=== PATIENT | male | born 1945 | race Caucasian/White ===

== ENCOUNTER 2017-05-20 09:35 | Emergency (ER) | payer MEDICARE, OTHER ==
[2017-05-20 09:46] VITALS: BP 153/85
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
== END 2017-05-20 11:18 | disposition home or self-care (01) ==
LOC: ER 09:35
DX: S49.92XA Unspecified injury of left shoulder and upper arm, initial encounter (principal); W01.0XXA Fall on same level from slipping, tripping and stumbling without subsequent striking against object, initial encounter; Y93.89 Activity, other specified; Y92.007 Garden or yard of unspecified non-institutional (private) residence as the place of occurrence of the external cause

== ENCOUNTER 2017-05-22 06:25 | Observation (INO) | payer MEDICARE, OTHER ==
[2017-05-22] MEDS ORDERED: MORPHINE SULFATE 10 MG/ML SYRG IV ONE ×2 (07:07→09:05)
[2017-05-22] MEDS ORDERED: ONDANSETRON HCL/PF 2 MG/ML VIAL IV ONE (07:08)
[2017-05-22] MEDS ORDERED: MORPHINE SULFATE 10 MG/ML SYRG ONE (07:17)
[2017-05-22] MEDS ORDERED: ONDANSETRON HCL/PF 2 MG/ML VIAL ONE (07:17)
[2017-05-22 07:44] LABS: Hematocrit 37.3 % (42.0-52.0); Hemoglobin 12.5 gm/dL (13.5-18.0); Mean Cell Volume 90.5 fl (78-100); Mean Corpuscular Hemoglobin 30.3 pg (27-31); Mean Corpuscular Hgb Conc 33.5 g/dl (32-36); Mean Platelet Volume 10.4 fl (6.0-9.5); Neutrophil # 5.6 K/mm3 (1.3-6.0); Neutrophil % 51.7 % (42-75.0); Platelet Count 357 K/mm3 (150-450); Red Blood Count 4.12 M/mm3 (4.7-6.0); Red Cell Distribution Width 15.2 % (11.5-14.0); White Blood Count 10.8 K/mm3 (4.0-10.5)
[2017-05-22 07:47] LABS: Total Cells Counted 100
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
[2017-05-22 07:54] LABS: Prothrombin Time (Patient) 49.5 Seconds (9.4-11.4)
[2017-05-22 07:59] LABS: Albumin * 3.7 gm/dl (3.4-5.0); BUN/Creatinine Ratio 27.7 (9.0-21.6); Bilirubin, Total 0.8 mg/dL (0.0-1.1); Ca. Corrected For Albumin 8.4 mg/dL (8.4-10.2); Calcium * 8.5 mg/dL (7.9-10.9); Carbon Dioxide 29.4 mmol/L (24-32.6); Potassium 3.4 mmol/L (3.4-4.6); Total Protein 6.8 gm/dL (6.2-8.2)
[2017-05-22 08:11] LABS: INR 4.76 INR (0.90-1.10)
[2017-05-22 08:12] LABS: Atypical (Reactive) Lymph 2 % (0-2); Band 1 % (0-2.0); Eosinophil 2 % (0-3); Lymphocyte 23 % (20-51); Monocyte 16 % (0-9); Neutrophil 56 % (42-75); Platelet Estimate Normal (NORMAL)
[2017-05-22 08:39] LABS: Urine Bilirubin Negative (NEGATIVE); Urine Blood Negative /ul (NEGATIVE); Urine Ketone Negative (NEGATIVE); Urine Nitrite Negative (NEGATIVE); Urine Protein Negative (NEGATIVE); Urine Urobilinogen Normal (NORMAL); Urine pH 6.5 pH (5.0-7.0)
[2017-05-22 08:50] LABS: Urine Appearance Clear; Urine Bacteria None Seen; Urine Color Yellow; Urine RBC TRACE /hpf (0-5); Urine WBC TRACE /hpf (0-5)
--- NOTE | 2017-05-22 11:27 | HP ---
Chief Complaint - Chief Complaint Date of Service: 05/22/17 Time of Service: 11:23 Chief Complaint: fall/left foot/shoulder pain History of Present Illness: Darren Arvizu, is a 71-year-old white male, with previous medical history of aortic stenosis status post" aortic valve replacement, coronary artery disease, hypertension and Hodgkin's disease, low back pain, who was admitted on 2016 because of a fall with left foot pain and left shoulder pain. A few days prior to admission patient was going down the stairs and fell down and hit his left shoulder again the wall. He was seen in our emergency room a few days later when it started hurting. X-ray at that time showed no evidence of acute osseous findings and he was sent home on a sleeping. Today early in the morning he went to the bathroom and when he stood up he had mid back spasm that buckled his left lower extremity and he fell down hitting his left foot and his left shoulder. He denied any chest pain shortness of breath, CP, palpitations , nausea, vomiting, diaphoresis uncontrolled movements, blanketing of vision before falling down. He then went to our emergency room where a CT scan of his head showed no acute hemorrhage. A CT scan of his cervical spine showed no acute osseous findings . his shoulder xray showed no acute osseous findings. He had a minimally displaced S5 fracture and possible fourth metatarsal fracture , base. He was then admitted for further evaluation and treatment and pain control. - Patient's Past Medical History Patient History - Medical: Cataracts, Hypothyroidism, Other Patient History - Cardiac/Respiratory: Asthma, CHF, COPD, Hypertension, Hyperlipidemia, Pericarditis, Pneumonia, CPAP/BiPAP Home Use, Sleep Apnea, Other Patient History - Cancer: Non Hodgkins Lymphoma, Chemotherapy history, Radiation Therapy, Other Patient History - Surgical Procedures: Cataracts, Pacemaker, T & A, Other Patient History - Other: None - Family History Father Family History - Medical: , No pertinent hx Family History - Cardiac/Respiratory: CVA/Stroke, Myocardial Infarction Family History - Cancer: No pertinent family hx Mother Family History - Medical: Diabetes Type 2 Family History - Cardiac/Respiratory: No pertinent hx Family History - Cancer: Melanoma - Social History Living Situations: spouse Abuse History: No History of abuse Psych History: No pertinent hx Smoking Status: Former smoker Have you smoked in the past 12 months: No Alcohol Use: rarely Drug Use: none - Immunizations Immunizations Up to Date: Yes Hx Pneumococcal Vaccination: Yes History of Influenza Vaccine: Yes Review Of Systems (GEN) - Review of Systems Generalized/Overall Review: Absent: Weakness, Chills, Fever EENTM: Present: No Symptoms Reported Respiratory: Absent: Cough, Shortness of Breath Cardiac: Absent: Chest Pain, Edema, Palpitations Abdominal: Absent: Nausea, Vomiting Genitourinary: Absent: Urgency, Frequency Musculoskeletal: Present: Joint Pain, Back Pain Neurological: Present: No Symptoms Reported Allergies/Adverse Reactions: Allergies Allergy/AdvReac Type Severity Reaction Status Date / Time cat dander Allergy Other Verified 05/22/17 10:06 mold Allergy Other Verified 05/22/17 10:06 pollen extracts Allergy Other Verified 05/22/17 10:06 Home Medications: HOME MEDICATIONS Furosemide [Lasix] 80 mg PO DAILY 08/27/12 [Last Taken Unknown] Levothyroxine Sodium [Synthroid] 50 mcg PO DAILY 08/27/12 [Last Taken Unknown] Losartan Potassium [Cozaar] 100 mg PO HS 08/27/12 [Last Taken Unknown] Carvedilol [Coreg] 25 mg PO BID 06/12/13 [Last Taken Unknown] Arformoterol Tartrate [Brovana] 15 mcg IH BID 11/21/13 [Last Taken Unknown] Budesonide [Pulmicort] 0.5 mg IH BID 02/04/14 [Last Taken Unknown] Nitroglycerin 0.4 mg SL [id number] PRN 02/09/14 [Last Taken Unknown] Potassium Chloride 40 meq PO DAILY 02/09/14 [Last Taken Unknown] Fexofenadine HCl [Lucrecia] 180 mg PO HS 06/30/14 [Last Taken Unknown] Levalbuterol Tartrate [Xopenex Hfa] 2 puff IH Q6H PRN 07/22/14 [Last Taken 07/20 08:30] Warfarin Sodium [Coumadin] 5 mg PO MOTH 07/27/14 [Last Taken Unknown] Albuterol Sulfate 2.5 mg IH DAILY 09/23/14 [Last Taken Unknown] Atorvastatin Calcium [Lipitor] 40 mg PO HS 09/23/14 [Last Taken Unknown] Fluorometholone [FML Ophthalmic Suspension] 1 drop LEFTEYE DAILY 09/23/14 [Last Taken Unknown] Fluticasone Propionate [Flonase] 2 spray NS BID 09/23/14 [Last Taken Unknown] Metolazone [Zaroxolyn] 5 mg PO TU 04/27/16 [Last Taken Unknown] Acetaminophen [Tylenol] 650 mg PO Q6H PRN 05/27/16 [Last Taken Unknown] Ipratropium [place] [Ipratropium [place] (Atrovent)] 0.5 mg IH TID 05/27/16 [ Last Taken Unknown] Warfarin Sodium [Coumadin] 2.5 mg PO SUTUWEFRSA 05/27/16 [Last Taken Unknown] prednisoLONE ACETATE [Pred Forte 1%] 1 drop RIGHTEYE QID 05/27/16 [Last Taken Unknown] Sod Chlor,Bicarb/Squeez Bottle [[employer] Sinus Rinse Comp Kit] 1 each NS BID [Last Taken Unknown] Exam - Exam Vital Signs: Vital Signs - Last Taken Temp 37.1 C 05/22/17 10:17 Pulse 78 05/22/17 10:17 Resp 12 05/22/17 10:17 BP 180/64 05/22/17 10:17 Pulse Ox 93 05/22/17 10:17 Constitutional: Present: Alert, Oriented x3, Cooperative ENT Exam: Present: hearing grossly normal Eye Exam: bilateral eye: normal inspection, PERRL, EOMI Neck: Present: supple Breasts: Present: Exam deferred Respiratory: Present: normal breath sounds, No rales, No wheezing Cardiovascular/Chest: Present: regular rate, rhythm, no JVD, no murmur, other - positive S2 click. Abdomen: Present: Normal bowel sounds, soft, nontender, nondistended Extremity: Present: no calf tenderness, other - left foot swelling, able to move toes, ice wraps Diagnostic Studies: Laboratory Results WBC 10.8 K/mm3 (4.0-10.5) H 05/22/17 07:30 RBC 4.12 M/mm3 (4.7-6.0) L 05/22/17 07:30 Hgb 12.5 gm/dL (13.5-18.0) L 05/22/17 07:30 Hct 37.3 % (42.0-52.0) L 05/22/17 07:30 MCV 90.5 fl (78-100) 05/22/17 07:30 MCH 30.3 pg (27-31) 05/22/17 07:30 MCHC 33.5 g/dl (32-36) 05/22/17 07:30 RDW 15.2 % (11.5-14.0) H 05/22/17 07:30 Plt Count 357 K/mm3 (150-450) 05/22/17 07:30 MPV 10.4 fl (6.0-9.5) H 05/22/17 07:30 Immature Gran % (Auto) 0.40 % (0.001-0.429) 05/22/17 07:30 Immature Gran # (Auto) 0.04 K/mm3 (0.000-0.0310) H 05/22/17 07:30 Neutrophils % 51.7 % (42-75.0) 05/22/17 07:30 Neutrophils % (Manual) 56 % (42-75) 05/22/17 07:30 Band Neuts % (Manual) 1 % (0-2.0) 05/22/17 07:30 Lymphocytes % 29.9 % (20-51) 05/22/17 07:30 Lymphocytes % (Manual) 23 % (20-51) 05/22/17 07:30 Monocytes % 14.6 % (0.0-9) H 05/22/17 07:30 Monocytes % (Manual) 16 % (0-9) H 05/22/17 07:30 Eosinophils % 2.2 % (0.0-3.0) 05/22/17 07:30 Eosinophils % (Manual) 2 % (0-3) 05/22/17 07:30 Basophils % 1.2 % (0.0-1.0) H 05/22/17 07:30 Nucleated RBC % 0.0 k/mm3 (0-1) 05/22/17 07:30 Neutrophils # 5.6 K/mm3 (1.3-6.0) 05/22/17 07:30 Neutrophils # (Manual) 6.0 K/mm3 (1.3-6.0) 05/22/17 07:30 Lymphocytes # 3.2 k/mm3 (1.5-3.5) 05/22/17 07:30 Lymphocytes # (Manual) 2.5 k/mm3 (1.5-3.5) 05/22/17 07:30 Monocytes # 1.6 k/mm3 (0.0-1.0) H 05/22/17 07:30 Monocytes # (Manual) 1.7 k/mm3 (0.0-1.0) H 05/22/17 07:30 Eosinophils # 0.2 k/mm3 (0.0-0.7) 05/22/17 07:30 Eosinophils # (Manual) 0.2 k/mm3 (0.0-0.7) 05/22/17 07:30 Absolute Basophils 0.1 k/mm3 (0.0-0.1) 05/22/17 07:30 Atypic/Reactive Lymphs 2 % (0-2) 05/22/17 07:30 Platelet Estimate Normal (NORMAL) 05/22/17 07:30 Ivanna Cells 2+ 05/22/17 07:30 PT 49.5 Seconds (9.4-11.4) H 05/22/17 07:30 INR (Anticoag Therapy) 4.76 INR (0.90-1.10) H* 05/22/17 07:30 Sodium 144 mmol/L (132-142) H 05/22/17 07:30 Plasma Sodium 144 mmol/L (130-142) H 05/22/17 07:30 Potassium 3.4 mmol/L (3.4-4.6) 05/22/17 07:30 Chloride 105 mmol/L (97-106) 05/22/17 07:30 Carbon Dioxide 29.4 mmol/L (24-32.6) 05/22/17 07:30 Anion Gap 13.0 mmol/L (6.8-13.8) 05/22/17 07:30 BUN 46 mg/dL (6-23) H 05/22/17 07:30 Creatinine 1.66 mg/dL (0.4-1.4) H 05/22/17 07:30 Est GFR (Non-Af Amer) 44 mL/min (60-130) L 05/22/17 07:30 BUN/Creatinine Ratio 27.7 (9.0-21.6) H 05/22/17 07:30 Random Glucose 113 mg/dL (70-110) H 05/22/17 07:30 Calcium 8.5 mg/dL (7.9-10.9) 05/22/17 07:30 Calcium Adj for Albumin 8.4 mg/dL (8.4-10.2) 05/22/17 07:30 Total Bilirubin 0.8 mg/dL (0.0-1.1) 05/22/17 07:30 AST 23 U/L (0-48) 05/22/17 07:30 ALT 32 U/L (19-67) 05/22/17 07:30 Alkaline Phosphatase 59 U/L (50-170) 05/22/17 07:30 Total Protein 6.8 gm/dL (6.2-8.2) 05/22/17 07:30 Albumin 3.7 gm/dl (3.4-5.0) 05/22/17 07:30 Urine Color Yellow 05/22/17 08:28 Urine Appearance Clear 05/22/17 08:28 Urine pH 6.5 pH (5.0-7.0) 05/22/17 08:28 Ur Specific [place] 1.010 SP.GR. (1.005-1.030) 05/22/17 08:28 Urine Protein Negative mg/dL (NEGATIVE) 05/22/17 08:28 Urine Glucose (UA) Negative mg/dL (NEGATIVE) 05/22/17 08:28 Urine Ketones Negative mg/dL (NEGATIVE) 05/22/17 08:28 Urine Blood Negative /ul (NEGATIVE) 05/22/17 08:28 Urine Nitrate Negative (NEGATIVE) 05/22/17 08:28 Urine Bilirubin Negative mg/dl (NEGATIVE) 05/22/17 08:28 Urine Urobilinogen Normal EU/dl (NORMAL) 05/22/17 08:28 Ur Leukocyte Esterase Negative /ul (NEGATIVE) 05/22/17 08:28 Urine RBC Trace /hpf (0-5) 05/22/17 08:28 Urine WBC Trace /hpf (0-5) 05/22/17 08:28 Ur Epithelial Cells None seen /hpf (0-5) 05/22/17 08:28 Urine Bacteria None seen (NONE) 05/22/17 08:28 Urine Culture Comments No culture indicated 05/22/17 08:28 Assessment/Plan - Assessment/Plan (1) Intractable pain Problem: Acute (2) Lumbar back pain with radiculopathy affecting left lower extremity Problem: Acute (3) Traumatic arthropathy, left ankle and foot Assessment: possible 4th MT Fracture, 4th on Xray. orhto on consult. Problem: Acute (4) Sacral fracture, closed Assessment: S5 on CTS. weight bear to tolerance. Problem: Acute Qualifiers: Encounter type: initial encounter Fracture alignment: minimally displaced (5) Hypertension Problem: Acute (6) Aortic stenosis Problem: Acute (7) Elevated INR Assessment: supratherapeutic. will hold coumadin tonight Problem: Acute (8) Shoulder injury Assessment: contusion. Problem: Acute
[2017-05-22] MEDS ORDERED: NON-FORMULARY 1 DOSE DOSE (Levalbuterol Tartrate [Xopenex Hfa] 2 PUFF) IH PRN (13:09)
[2017-05-22] MEDS ORDERED: NITROGLYCERIN 0.4 MG/TAB BTL SL PRN (13:09)
[2017-05-22] MEDS ORDERED: ACETAMINOPHEN 325 MG TABLET PO PRN (13:09)
[2017-05-22] MEDS ORDERED: LEVALBUTEROL HCL 0.63 MG/3 ML AMPUL IH PRN (13:38)
--- NOTE | 2017-05-22 13:44 | CONS ---
[facility] - General Date of Service: 05/22/17 Narrative: Mr. Arvizu is a 71-year-old gentleman known to the orthopedic service for previous hematomas and related complications. He states earlier this week he did fall and resulting in a shoulder injury which she states is getting better however he recently injured his sacrum and was standing up when he felt his leg give and he fell to the ground resulting in increased left foot pain and swelling. He is brought to emergency department had x-rays obtained which showed no acute head or neck injury that was concerning for foot injury as well as notable swelling. He states he has notable tenderness to the dorsal aspect of his foot. He has pain in the sacrum left shoulder both of which were present prior to his increased left foot pain. He is on chronic Coumadin and is noted to be supratherapeutic when he came to the ER. Denies any numbness or tingling, excessive pain with passive motion, bowel or bladder problems, or discoloration at this point. He does have some noted ecchymosis to his left biceps area Source: patient Exam Limitations: no limitations - History of Present Illness Timing/Duration: 24 hours, 1 week Severity: moderate Modifying Factors - (Worsens): Reports: movement Modifying Factors - (Improves): Reports: immobilization, medication, rest Associated Symptoms: denies symptoms Allergies/Adverse Reactions: Allergies cat dander Allergy (Verified 05/22/17 10:06) Other mold Allergy (Verified 05/22/17 10:06) Other pollen extracts Allergy (Verified 05/22/17 10:06) Other Home Medications: Home Medications Medication Instructions Recorded Last Taken Furosemide [Lasix] 80 mg PO DAILY 08/27/12 Unknown Levothyroxine Sodium [Synthroid] 50 mcg PO DAILY 08/27/12 Unknown Losartan Potassium [Cozaar] 100 mg PO HS 08/27/12 Unknown Carvedilol [Coreg] 25 mg PO BID 06/12/13 Unknown Arformoterol Tartrate [Brovana] 15 mcg IH BID 11/21/13 Unknown Budesonide [Pulmicort] 0.5 mg IH BID 02/04/14 Unknown Nitroglycerin 0.4 mg SL [id number] PRN 02/09/14 Unknown Potassium Chloride 40 meq PO DAILY 02/09/14 Unknown Fexofenadine HCl [Lucrecia] 180 mg PO HS 06/30/14 Unknown Levalbuterol Tartrate [Xopenex Hfa] 2 puff IH Q6H PRN 07/22/14 07/20/14 08:30 Warfarin Sodium [Coumadin] 5 mg PO MOTH 07/27/14 Unknown Albuterol Sulfate 2.5 mg IH DAILY 09/23/14 Unknown Atorvastatin Calcium [Lipitor] 40 mg PO HS 09/23/14 Unknown Fluorometholone [FML Ophthalmic 1 drop LEFTEYE DAILY 09/23/14 Unknown Suspension] Fluticasone Propionate [Flonase] 2 spray NS BID 09/23/14 Unknown Metolazone [Zaroxolyn] 5 mg PO TU 04/27/16 Unknown Acetaminophen [Tylenol] 650 mg PO Q6H PRN 05/27/16 Unknown Ipratropium [place] [Ipratropium 0.5 mg IH TID 05/27/16 Unknown [place] (Atrovent)] Warfarin Sodium [Coumadin] 2.5 mg PO SUTUWEFRSA 05/27/16 Unknown prednisoLONE ACETATE [Pred Forte 1 drop RIGHTEYE QID 05/27/16 Unknown 1%] Sod Chlor,Bicarb/Squeez Bottle 1 each NS BID 05/22/17 Unknown [[employer] Sinus Rinse Comp Kit] - Patient's Past Medical History Patient History - Medical: Cataracts, Hypothyroidism, Other Patient History - Cardiac/Respiratory: Asthma, CHF, COPD, Hypertension, Hyperlipidemia, Pericarditis, Pneumonia, CPAP/BiPAP Home Use, Sleep Apnea, Other Patient History - Cancer: Non Hodgkins Lymphoma, Chemotherapy history, Radiation Therapy, Other Patient History - Surgical Procedures: Cataracts, Pacemaker, T & A, Other Patient History - Other: None - Family History Father Family History - Medical: , No pertinent hx Family History - Cardiac/Respiratory: CVA/Stroke, Myocardial Infarction Family History - Cancer: No pertinent family hx Mother Family History - Medical: Diabetes Type 2 Family History - Cardiac/Respiratory: No pertinent hx Family History - Cancer: Melanoma - Social History Living Situations: spouse Abuse History: No History of abuse Psych History: No pertinent hx Smoking Status: Former smoker Have you smoked in the past 12 months: No Alcohol Use: rarely Drug Use: none - Immunizations Immunizations Up to Date: Yes Hx Pneumococcal Vaccination: Yes History of Influenza Vaccine: Yes Procedures ANESTH INJECT-SPIN CANAL (02/11/03) ANT NASAL PACK FOR EPIST (12/19/05) APPLICATION OF SPLINT (05/16/06) EXCIS DEBRIDE OF WOUND, INFECT, OR BURN (05/27/06) FREE SKIN GRAFT NEC (11/05/11) HAND SKIN GRAFT NEC (05/27/06) IMMOBILIZ/WOUND ATTN NEC (11/05/11) INJECT STEROID (02/11/03) MEASURE OF ARTERIAL SATURATION, PERIPHERAL, PERC APPROACH (07/06/16) NASAL REPAIR NEC (12/24/99) NONEXCIS DEBRID OF WOUND, INFECT, OR BURN (11/05/11) OTHER EXCISION, FUSION, AND REPAIR OF TOES (10/11/08) OTHER SKIN & SUBQ I D (05/20/06) SEPTOPLASTY NEC (03/23/01) SPINAL CANAL INJECT NEC (02/11/03) SPINAL PATCH (11/30/02) SUBMUC NASAL SEPT RESECT (12/24/99) TURBINECTOMY NEC (03/23/01) Physical Examination - Exam Narrative: Left upper extremity: Ecchymosis to the left biceps area, tenderness to palpation at the greater tuberosity, mild pain with range of motion, he is neurovascular intact, no signs of laceration or abrasions, well-healed scar from his pacemaker, mild pain with passive range of motion Left lower extremity: The foot is swollen over the distal aspect near the base of the toes without any signs laceration or abrasion, there is no signs of pin or tense skin, he has notable tenderness in this area but not over the base of the metatarsal or plantar aspect of his foot. He is able to flex and extend his toes to limited degree with mild pain, he has mild pain with passive range of motion, I am unable to palpate his dorsalis pedis secondary to swelling. Sensation is intact light touch Vital Signs: Vital Signs - Last Taken Temp 37.1 C 05/22/17 10:17 Pulse 78 05/22/17 10:17 Resp 12 05/22/17 10:17 BP 180/64 05/22/17 10:17 Pulse Ox 93 05/22/17 10:17 O2 Oxygen Delivery Method Room Air - Results and Findings: Narrative: C reports but no acute fracture to the left shoulder. Left foot has some degenerative changes but no acute signs of fracture. He is exam does not show any signs of fracture as he is not tender in the area of concern at the base of the metatarsals, reported sacral fracture - Assessments/Findings (1) Foot pain, left Diagnosis(s): We reviewed that he does not appear to have a fracture. We will continue with light compression to his foot and addressing his supratherapeutic INR. There is not an indication for surgery at this time and thus we will continue to follow clinically. With regards to his sacral fracture there is no surgical intervention necessary only pain control. With regards to his left shoulder this can be followed as an outpatient in no acute intervention is needed at this time. He can weight-bear as tolerated to his left foot and use his postop shoe when ambulating. We will check on him tomorrow Problem: Acute (2) Hematoma Problem: Acute (3) Sacral fracture, closed Problem: Acute Qualifiers: Encounter type: initial encounter Fracture alignment: minimally displaced
[2017-05-22] MEDS ORDERED: MORPHINE SULFATE 4 MG/ML SYRG IV PRN (17:27)
[2017-05-22] MEDS: prednisoLONE ACETATE 50 DROP BTL RIGHTEYE SCH ×2 (17:48→22:14)
[2017-05-22] MEDS: oxyCODONE HCL/ACETAMINOPHEN 1 TAB TABLET PO PRN (17:52)
[2017-05-22] MEDS: IPRATROPIUM BROMIDE 0.5 MG/2.5 ML VIAL.NEB IH SCH (18:14)
[2017-05-22] MEDS: FORMOTEROL FUMARATE 20 MCG/2 ML VIAL IH SCH (18:15)
[2017-05-22] MEDS: BUDESONIDE 0.5 MG/2 ML VIAL.NEB IH SCH (18:16)
[2017-05-22] MEDS ORDERED: NON-FORMULARY 1 DOSE DOSE (Arformoterol Tartrate [Brovana] 15 MCG) IH SCH (21:00)
[2017-05-22] MEDS ORDERED: ATORVASTATIN CALCIUM 40 MG TABLET PO SCH (21:00)
[2017-05-22] MEDS ORDERED: FEXOFENADINE HCL 180 MG PO SCH (21:00)
[2017-05-22] MEDS: CARVEDILOL 25 MG TABLET PO SCH (22:10)
[2017-05-22] MEDS: LOSARTAN POTASSIUM 50 MG TABLET PO SCH (22:11)
[2017-05-22] MEDS: ROSUVASTATIN CALCIUM 20 MG TABLET PO SCH (22:11)
[2017-05-22] MEDS: [UNRECOGNIZED DRUG - MIXTURE] NS SCH (22:12)
[2017-05-22] MEDS: FLUTICASONE PROPIONATE 120 SPRAY INHALER NS SCH (22:12)
[2017-05-23] MEDS: oxyCODONE HCL/ACETAMINOPHEN 1 TAB TABLET PO PRN ×4 (00:20→20:34)
[2017-05-23] MEDS: IPRATROPIUM BROMIDE 0.5 MG/2.5 ML VIAL.NEB IH SCH ×3 (06:07→18:16)
[2017-05-23] MEDS: ALBUTEROL SULFATE 2.5 MG/3 ML VIAL.NEB IH SCH ×2 (06:07→18:12)
[2017-05-23] MEDS: BUDESONIDE 0.5 MG/2 ML VIAL.NEB IH SCH ×2 (06:08→18:22)
[2017-05-23] MEDS: FORMOTEROL FUMARATE 20 MCG/2 ML VIAL IH SCH ×2 (06:08→18:22)
[2017-05-23] MEDS: LEVOTHYROXINE SODIUM 50 MCG TABLET PO SCH (06:56)
[2017-05-23] MEDS: CARVEDILOL 25 MG TABLET PO SCH ×2 (08:48→20:35)
[2017-05-23] MEDS: LORATADINE 10 MG TABLET PO SCH (08:48)
[2017-05-23] MEDS: FLUTICASONE PROPIONATE 120 SPRAY INHALER NS SCH ×2 (08:48→20:34)
[2017-05-23] MEDS: FLUOROMETHOLONE LEFTEYE SCH (08:49)
[2017-05-23] MEDS: POTASSIUM CHLORIDE 20 MEQ TABLET.SA PO SCH (08:49)
[2017-05-23] MEDS: prednisoLONE ACETATE 50 DROP BTL RIGHTEYE SCH ×4 (08:50→20:38)
[2017-05-23] MEDS: FUROSEMIDE 80 MG TABLET PO SCH (08:50)
[2017-05-23] MEDS ORDERED: ALBUTEROL SULFATE 2.5 MG/3 ML VIAL.NEB IH SCH (09:00)
[2017-05-23] MEDS ORDERED: POTASSIUM CHLORIDE 40 MEQ PO SCH (09:00)
[2017-05-23] MEDS: [UNRECOGNIZED DRUG - MIXTURE] NS SCH ×2 (09:01→20:31)
[2017-05-23 09:28] LABS: INR 3.46 INR (0.90-1.10)
[2017-05-23] MEDS ORDERED: HYDROmorphone HCL 2 MG TABLET PO PRN ×2 (10:42→13:32)
--- NOTE | 2017-05-23 14:51 | PN ---
Subjective - Date and Time Seen Date: 05/23/17 Time: 14:46 Subjective Narrative: Today he states that he is able to take a couple steps with therapy but he has persistent pain. His INR is better. His swelling is stable. He reports increased left shoulder pain and difficulties with active and passive range of motion. Objective - Vitals Vitals: Last Vital Signs Temp 36.8 C 05/23/17 11:07 Pulse 70 05/23/17 11:07 Resp 18 05/23/17 11:07 BP 189/71 05/23/17 11:07 Pulse Ox 94 05/23/17 11:07 - Abnormal Lab Findings Abnormal Lab Findings: Abnormal Lab Results 05/23/17 Range/Units 09:12 PT 36.0 H (9.4-11.4) Seconds INR (Anticoag Therapy) 3.46 H (0.90-1.10) INR - Exam Exam Narrative: Left lower extremity: Swelling is stable, there is no signs of impending wound or dehiscence or drainage. He is able to flex and extend his toes and he has persistent tenderness over the hematoma but not in the area of the concern for fracture. Left upper extremity: Persistent ecchymosis over the biceps area. He has pain with passive range of motion. He is able to gently move the shoulder with limited range of motion with noted pain. He has no crepitance with range of motion. He has no gross deformity. He has mild tenderness of the greater tuberosity, no biceps deformity, and a well-healed incision from his pacemaker. Constitutional: Present: Alert, Oriented x3 Assessment/Plan - Problems/Diagnosis (1) Foot pain, left Problem: Acute (2) Hematoma Problem: Acute (3) Sacral fracture, closed Problem: Acute Qualifiers: Encounter type: initial encounter Fracture alignment: minimally displaced (4) Shoulder injury Problem: Acute Qualifiers: Encounter type: subsequent encounter Laterality: left Qualified Code(s): S49.92XD - Unspecified injury of left shoulder and upper arm, subsequent encounter Narrative: With regards to his shoulder he is to continue with passive range of motion as tolerated. He can work physical therapy in order to assist with this. He can use a sling for comfort. We discussed that at this point there is no surgical intervention indicated and I would not recommend any additional imaging at this time. We discussed that in order to treat his shoulder with any significant intervention it would make him relating difficult since he is utilizing a walker for this. His shoulder pathology, followed as an outpatient but I would recommend 2-3 weeks of physical therapy prior to being seen in clinic.
--- NOTE | 2017-05-23 16:36 | PN ---
Subjective - Date and Time Seen Date: 05/23/17 Time: 13:30 Subjective Narrative: Patient reports continued low back pain 10/ at times. 1 percocet is not helping. Unable to lift left shoulder since fall. Also has Left foot pain. Having difficulty working with PT. Objective - Vitals Vitals: Last Vital Signs Temp 36.8 C 05/23/17 11:07 Pulse 75 05/23/17 15:24 Resp 19 05/23/17 15:24 BP 189/71 05/23/17 11:07 Pulse Ox 94 05/23/17 15:14 - Abnormal Lab Findings Abnormal Lab Findings: Abnormal Lab Results 05/23/17 Range/Units 09:12 PT 36.0 H (9.4-11.4) Seconds INR (Anticoag Therapy) 3.46 H (0.90-1.10) INR - Exam Constitutional: Present: Alert, Oriented x3, Cooperative ENT Exam: Present: hearing grossly normal Respiratory: Present: lungs clear, normal breath sounds Cardiovascular/Chest: Present: regular rate, rhythm, other - mechanical valve click Abdomen: Present: Normal bowel sounds, soft, nontender, nondistended Appearance: Present: appropriate appearance, appropriate insight, neat Assessment/Plan Plan Narrative: Patient's pain is not controlled. Will continue to work with oral pain medication to control pain. Will add dilaudid for breakthrough pain and increase percocet to 2 tabs q6hr. Discussed shoulder with ortho, patient will need PT. Due to lower and upper extremity pain PT will be difficult as he does not have either to compensate for the other. He is unable to walk and therefore not safe for home. Will plan to discharge to [facility] tomorrow. - Problems/Diagnosis (1) Foot pain, left Problem: Acute (2) Hematoma Problem: Acute (3) Sacral fracture, closed Problem: Acute Qualifiers: Encounter type: initial encounter Fracture alignment: minimally displaced (4) Shoulder injury Problem: Acute Qualifiers: Encounter type: subsequent encounter Laterality: left Qualified Code(s): S49.92XD - Unspecified injury of left shoulder and upper arm, subsequent encounter
[2017-05-23] MEDS ORDERED: WARFARIN SODIUM 2.5 MG TABLET PO SCH (17:00)
[2017-05-23] MEDS: ROSUVASTATIN CALCIUM 20 MG TABLET PO SCH (20:35)
[2017-05-23] MEDS: LOSARTAN POTASSIUM 50 MG TABLET PO SCH (20:35)
[2017-05-24] MEDS ORDERED: CYCLOBENZAPRINE HCL 10 MG TABLET PO ONE (03:10)
[2017-05-24] MEDS: oxyCODONE HCL/ACETAMINOPHEN 1 TAB TABLET PO PRN (03:19)
[2017-05-24] MEDS: IPRATROPIUM BROMIDE 0.5 MG/2.5 ML VIAL.NEB IH SCH (06:05)
[2017-05-24] MEDS: FORMOTEROL FUMARATE 20 MCG/2 ML VIAL IH SCH (06:05)
[2017-05-24] MEDS: BUDESONIDE 0.5 MG/2 ML VIAL.NEB IH SCH (06:05)
[2017-05-24] MEDS: ALBUTEROL SULFATE 2.5 MG/3 ML VIAL.NEB IH SCH ×2 (06:07→08:51)
[2017-05-24] MEDS: LEVOTHYROXINE SODIUM 50 MCG TABLET PO SCH (07:12)
[2017-05-24] MEDS ORDERED: METOLAZONE 5 MG TABLET PO SCH (08:00)
--- NOTE | 2017-05-24 08:36 | DS ---
(1) Foot pain, left Problem: Acute (2) Hematoma Problem: Acute (3) Sacral fracture, closed Problem: Acute Qualifiers: Encounter type: initial encounter Zone of sacrum fracture: zone III of sacrum Fracture alignment: minimally displaced Qualified Code(s): S32.131A - Minimally displaced Zone III fracture of sacrum, initial encounter for closed fracture (4) Shoulder injury Problem: Acute Qualifiers: Encounter type: subsequent encounter Laterality: left Qualified Code(s): S49.92XD - Unspecified injury of left shoulder and upper arm, subsequent encounter Description of Stay: Darren Arvizu is a 71 yo male that sustained a fall at home and subsequently had severe low back, left foot, and left should pain. He was unable to ambulate and pain was severe requiring IV pain medication. He was unable to abduct his left shoulder. He was admitted for pain control and PT. Orthopedics were consulted. He had a nondisplaced fracture of the left 4th metatarsal and a ventral S5 fracture that was minimally displaced. Ortho determined fractures to be stable and nonsurgical. He worked with PT and medications were adjusted for oral control. Due to multiple injuries he was unable to get around well enough to be discharged to home and was discharged to [facility] for further PT. We will see how much improvement is obtained with PT and see him back in about a month. Procedures Performed: none Discharge Disposition: [facility] Disposition: [facility] Condition: Stable Discharge Activity: Activity as tolerated Discharge Diet: Low salt Discharge Level of Care:: ICF - Correction Correction Therapy: Physicial Therapy, Occupation Therapy Referrals: John Dutton DO [Primary Care Provider] - (Follow up in clinic in one month) Problem Oriented Discharge Instructions to Patient/Family: Shoulder Pain, Easy- to-Read Additional Patient Instructions (free text): Follow up with Dr. Dutton 06/24 at 9:00 in office. LAB - Prothrombin Time 05/26 Prescriptions (Any new or edited meds): Cyclobenzaprine HCl 10 mg PO TID PRN #90 tablet PRN Reason: muscle spasms HYDROmorphone HCL [Dilaudid] 4 mg PO Q4H PRN #30 tablet PRN Reason: Severe Pain Levothyroxine Sodium [Synthroid] 50 mcg PO DAILY@0700 #30 tablet oxyCODONE HCL/ACETAMINOPHEN [Percocet 5 MG/325 MG] 2 tab PO Q6H PRN #120 tablet PRN Reason: Pain Complete Home Medications List: Complete Home Medication List: Furosemide [Lasix] 80 mg PO DAILY 08/27/12 Losartan Potassium [Cozaar] 100 mg PO HS 08/27/12 Carvedilol [Coreg] 25 mg PO BID 06/12/13 Arformoterol Tartrate [Brovana] 15 mcg IH BID 11/21/13 Budesonide [Pulmicort] 0.5 mg IH BID 02/04/14 Nitroglycerin 0.4 mg SL [id number] PRN 02/09/14 Potassium Chloride 40 meq PO DAILY 02/09/14 Fexofenadine HCl [Lucrecia] 180 mg PO HS 06/30/14 Levalbuterol Tartrate [Xopenex Hfa] 2 puff IH Q6H PRN 07/22/14 Warfarin Sodium [Coumadin] 5 mg PO MOTH 07/27/14 Albuterol Sulfate 2.5 mg IH DAILY 09/23/14 Atorvastatin Calcium [Lipitor] 40 mg PO HS 09/23/14 Fluorometholone [FML Ophthalmic Suspension] 1 drop LEFTEYE DAILY 09/23/14 Fluticasone Propionate [Flonase] 2 spray NS BID 09/23/14 Metolazone [Zaroxolyn] 5 mg PO TU 04/27/16 Acetaminophen [Tylenol] 650 mg PO Q6H PRN 05/27/16 Ipratropium [place] [Atrovent] 0.5 mg IH TID 05/27/16 Warfarin Sodium [Coumadin] 2.5 mg PO [id number] 05/27/16 prednisoLONE ACETATE [Pred Forte 1%] 1 drop RIGHTEYE QID 05/27/16 Sod Chlor,Bicarb/Squeez Bottle [Neilmed Sinus Rinse Kit] 1 each NS BID 05/22/17 Cyclobenzaprine HCl 10 mg PO TID PRN #90 tablet 05/24/17 HYDROmorphone HCL [Dilaudid] 4 mg PO Q4H PRN #30 tablet 05/24/17 Levothyroxine Sodium [Synthroid] 50 mcg PO DAILY@0700 #30 tablet 05/24/17 oxyCODONE HCL/ACETAMINOPHEN [Percocet 5 MG/325 MG] 2 tab PO Q6H PRN #120 tablet 05/24/17 Amb Orders for Discharge: Prothrombin Time Time Frame: 05/26/17, Facility: [facility], Location: Laboratory OT Evaluation and Treatment Location: Determined By Patient PT Evaluation and Treatment Location: Determined By Patient
[2017-05-24] MEDS: LORATADINE 10 MG TABLET PO SCH (09:10)
[2017-05-24] MEDS: CARVEDILOL 25 MG TABLET PO SCH (09:11)
[2017-05-24] MEDS: FLUTICASONE PROPIONATE 120 SPRAY INHALER NS SCH (09:11)
[2017-05-24] MEDS: prednisoLONE ACETATE 50 DROP BTL RIGHTEYE SCH (09:11)
[2017-05-24] MEDS: FLUOROMETHOLONE LEFTEYE SCH (09:11)
[2017-05-24] MEDS: POTASSIUM CHLORIDE 20 MEQ TABLET.SA PO SCH (09:12)
[2017-05-24] MEDS: FUROSEMIDE 80 MG TABLET PO SCH (09:13)
[2017-05-24] MEDS: [UNRECOGNIZED DRUG - MIXTURE] NS SCH (10:53)
[2017-05-24 11:52] VITALS: BP 118/44
[2017-05-24] MEDS ORDERED: WARFARIN SODIUM 5 MG TABLET PO SCH (17:00)
== END 2017-05-24 11:45 ==
LOC: ER 06:25 → MS 09:14
PROVIDERS: ADMIT Internal Medicine; ATTEND Family Medicine
DX: S32.10XA Unspecified fracture of sacrum, initial encounter for closed fracture (principal); S40.012A Contusion of left shoulder, initial encounter; S90.32XA Contusion of left foot, initial encounter; S30.0XXA Contusion of lower back and pelvis, initial encounter; W18.39XA Other fall on same level, initial encounter; Y92.009 Unspecified place in unspecified non-institutional (private) residence as the place of occurrence of the external cause; T14.8 Other injury of unspecified body region; G89.11 Acute pain due to trauma; M54.16 Radiculopathy, lumbar region; I10 Essential (primary) hypertension; I35.0 Nonrheumatic aortic (valve) stenosis; Z79.01 Long term (current) use of anticoagulants; Z87.891 Personal history of nicotine dependence; E03.9 Hypothyroidism, unspecified
CPT/HCPCS: 36415; 70450; 72125; 72131; 73030; 73630; 80053; 81001; 85025; 85610; 94640; 94660; 96374; 96375; 96376; 97110; 97163; 97530; 99284; G0378; G8978; G8979; G8980; J2405

== ENCOUNTER 2019-12-10 11:56 | Inpatient (IN) ==
[2019-12-10 12:43] LABS: Hematocrit 39.3 % (42.0-52.0); Mean Cell Volume 96.1 fl (78-100); Mean Corpuscular Hemoglobin 31.8 pg (27-31); Mean Corpuscular Hgb Conc 33.1 g/dl (32-36); Platelet Count 220 K/mm3 (150-450); Red Blood Count 4.09 M/mm3 (4.7-6.0); Red Cell Distribution Width 17.6 % (11.5-14.0); White Blood Count 10.3 K/mm3 (4.0-10.5)
[2019-12-10] MEDS ORDERED: ALBUTEROL SULFATE/IPRATROPIUM 3 ML NEBU IH ONE ×2 (12:43→17:14)
[2019-12-10] MEDS ORDERED: METHYLPREDNISOLONE SOD SUCC/PF 40 MG/ML VIAL IV ONE (12:43)
[2019-12-10 12:46] LABS: Total Cells Counted 100
[2019-12-10 13:01] LABS: Albumin * 3.5 gm/dl (3.4-5.0); Anion Gap 11.7 mmol/L (6.8-13.8); BUN/Creatinine Ratio 21.4 (9.0-21.6); Bilirubin, Total 0.5 mg/dL (0.0-1.1); Ca. Corrected For Albumin 8.6 mg/dL (8.4-10.2); Calcium * 8.5 mg/dL (7.9-10.9); Carbon Dioxide 30.4 mmol/L (24-32.6); Potassium 4.1 mmol/L (3.4-4.6); Total Protein 6.5 gm/dL (6.2-8.2)
[2019-12-10 13:21] LABS: Atypical (Reactive) Lymph 13 % (0-2); Band 6 % (0-2.0); Eosinophil 2 % (0-3); Lymphocyte 9 % (20-51); Monocyte 13 % (0-9); Neutrophil 57 % (42-75); Neutrophil # 5.9 K/mm3 (1.3-6.0)
[2019-12-10 13:23] LABS: Anisocytosis 2+; Ovalocytes 1+; Target Cells 1+
[2019-12-10 13:24] LABS: Microcytosis 1+; Platelet Estimate Normal (NORMAL)
[2019-12-10 13:25] LABS: Schistocytes 1+
[2019-12-10] MEDS ORDERED: FUROSEMIDE 10 MG/ML VIAL IV ONE (13:27)
--- NOTE | 2019-12-10 14:43 | ERNOTE ---
Date of Service: 12/10/19 Time Seen by Provider: 12/10/19 12:35 Stated Complaint: Labored breathing, COPD, low O2 sats Presenting Symptoms:: cough, other - weakness, SOB Source: patient Exam Limitations: no limitations Immunizations: IMMUNIZATION HX Immunizations Up to Date Yes History of Influenza Vaccine Yes Hx Pneumococcal Vaccination Yes Allergies/Adverse Reactions: Allergies cat dander Allergy (Verified 12/10/19 12:14) Other mold Allergy (Verified 12/10/19 12:14) Other pollen extracts Allergy (Verified 12/10/19 12:14) Other Home Medications: HOME MEDICATIONS Carvedilol [Coreg] 25 mg PO BID 06/12/13 [Last Taken 04/03/18 09:00] Arformoterol Tartrate [Brovana] 15 mcg IH BID 11/21/13 [Last Taken 04/03/18 09:00] Budesonide [Pulmicort] 0.5 mg IH BID 02/04/14 [Last Taken 04/03/18 09:00] Nitroglycerin 0.4 mg SL [id number] PRN 02/09/14 [Last Taken Unknown] Levalbuterol Tartrate [Xopenex Hfa] 2 puff IH Q6H PRN 07/22/14 [Last Taken 07/20/14 08:30] Albuterol Sulfate 2.5 mg IH DAILY 09/23/14 [Last Taken 04/02/18 16:00] Atorvastatin Calcium [Lipitor] 40 mg PO HS 09/23/14 [Last Taken 04/02/18 21:00] Fluorometholone [FML Ophthalmic Suspension] 1 drp LEFTEYE DAILY 09/23/14 [Last Taken 04/03/18 08:00] Metolazone [Zaroxolyn] 5 mg PO TU 04/27/16 [Last Taken 03/28/18 08:00] Ipratropium [place] [Atrovent] 0.5 mg IH TID 05/27/16 [Last Taken 04/03/18 06:00] Acetaminophen 1,000 mg PO Q6H 04/03/18 [Last Taken Unknown] fluticasone propionate 50 mcg/actuation nasal spray,suspension 2 spray [place] BID #15.8 g 05/01/18 [Last Taken Unknown] amiodarone 200 mg tablet 200 mg PO DAILY 36 Days #36 tab 10/31/18 [Last Taken Unknown] bupropion HCl 150 mg 24 hr tablet, extended release 150 mg PO DAILY #90 tab 12/20/18 [Last Taken Unknown] tamsulosin 0.4 mg capsule 0.4 mg PO DAILY #90 cap 12/20/18 [Last Taken Unknown] prednisolone acetate 1 % eye drops,suspension 1 drp OP DAILY 04/06/19 [Last Taken Unknown] warfarin 2.5 mg tablet 2.5 mg PO 6XW tab 04/06/19 [Last Taken Unknown] warfarin 5 mg tablet 5 mg PO QWEEK tab 04/06/19 [Last Taken Unknown] Allopurinol [Zyloprim] 150 mg PO DAILY 06/07/19 [Last Taken Unknown] potassium chloride 10 mEq capsule,extended release 20 meq PO TID #540 cap 06/18/19 [Last Taken Unknown] revefenacin 175 mcg/3 mL solution for nebulization IH #90 ml 07/06/19 [Last Taken Unknown] furosemide 80 mg tablet 80 mg PO DAILY #90 tab 09/19/19 [Last Taken Unknown] fexofenadine 180 mg tablet 180 mg PO DAILY 10/26/19 [Last Taken Unknown] levothyroxine 50 mcg capsule 50 mcg PO DAILY 10/26/19 [Last Taken Unknown] losartan 100 mg tablet 100 mg PO DAILY 10/26/19 [Last Taken Unknown] levofloxacin 750 mg tablet 750 mg PO DAILY #10 tab 12/05/19 [Last Taken Unknown] - History of Present Ilness Narrative: Patient presents feeling worse every day, SOB, cough, wheezing and increasing generalized weakness. Has been on 2 courses of antibiotics. Augmentin and now 4 days let of Levaquin. Dr Dutton has been managing this as an outpatient but sent to the ED today. No acute chest pain. No vomiting or fever. Mild increased leg swelling. Feels increased generalized weakness. Timing: constant, getting worse Severity: moderate Frequency/Possible Cause: Reports: no prior episodes Modifying Factors - Improves: Reports: nothing Modifying Factors - Worsens: Reports: activity Associated Symptoms: Reports: cough, shortness of breath Prior Treatment: Reports: recently seen, treated by physician, currently on antibiotics. Denies: recently hospitalized Review of Systems - Review of Systems Constitutional: Absent: fever EYE: Present: no symptoms reported ENT: Absent: sore throat Respiratory: Present: shortness of breath, cough Cardiology: Absent: chest pain Gastrointestinal/Abdominal: Absent: abdominal pain Neurological: Present: no symptoms reported All Other Systems: All systems neg except as marked Medical History (Last Reviewed 12/10/19 @ 14:39 by Scot Copeland MD) Bilateral lower extremity edema Bunion of right foot joint was replaced by Dr. Headley 2007 Toe pain, bilateral 1st degree AV block Onset Date: Unknown Anxiety Onset Date: Unknown Asthma Onset Date: ~02/1989 CAD (coronary artery disease) Onset Date: Unknown CHF (congestive heart failure) Onset Date: Unknown COPD (chronic obstructive pulmonary disease) Onset Date: Unknown Depression Onset Date: Unknown Erectile dysfunction Onset Date: ~07/1972 Diagnosed with sterility. Fatigue Onset Date: Unknown Fuchs' endothelial dystrophy Onset Date: 12/30/17 Hearing loss Onset Date: Unknown right ear Hodgkin disease Onset Date: ~09/1980 Hyperlipidemia Onset Date: Unknown Hypothyroidism Onset Date: 03/04/10 Mechanical heart valve present Onset Date: 05/26/17 Aortic valve. Meniere disease Onset Date: Unknown Pacemaker Onset Date: Unknown Pseudophakia Onset Date: 12/30/17 Shortness of breath Onset Date: Unknown Sleep apnea Onset Date: Unknown Acute pharyngitis Onset Date: 05/21/13 Arm pain Onset Date: 11/23/13 Left arm/elbow. Breast disorder Onset Date: 06/07/12 Left breast fullness. Cough Onset Date: 09/20/14 Multifactorial. Hypoglycemia Onset Date: ~06/2001 Low back pain Onset Date: Unknown with radiculopathy Mononucleosis Onset Date: ~1988 Pericarditis Onset Date: ~1988 Acute, viral. 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 Jeremi Cha, [facility]. Left leg. History of splenectomy Onset Date: ~1969 With liver biopsy. History of toe surgery Onset Date: 10/11/08 History of tonsillectomy Onset Date: ~06/1952 S/P epidural steroid injection Onset Date: ~11/30/02 L4-5, L5-S1 Family History: Family History (Last Reviewed 12/10/19 @ 14:39 by Scot Copeland MD) Father Heart disease Hyperlipemia Hypertension CVA (cerebral vascular accident) Uncle CVA (cerebral vascular accident) Mother Diabetes Hyperlipemia Glaucoma Crohns disease Aunt Diabetes Social History: (Last Reviewed 12/10/19 @ 14:39 by Scot Copeland MD) Social History: Marital status: lives independently: No number of children: 1 current occupational status: retired Highest education level completed: Doctoral degree Service: No Tobacco: Smoking Status: Never smoker Alcohol: alcohol intake: current alcohol intake frequency: a few times a month Substance Use: substance use type: does not use Dietary Habits: caffeine: Yes caffeine comment: current every day Type: tea Physical Exam - Physical Exam General Appearance: Present: alert, no apparent distress Head Exam: Present: normal inspection, no evidence of injury Eye Exam: Normal inspection: bilateral, PERRL: bilateral Ears, Nose, Throat: Present: normal ENT inspection Neck: Present: normal inspection Respiratory: Present: no respiratory distress, other - scattered wheezes, no distress. Was hypoxic, now on oxygen and in no distress Cardiovascular/Chest: Present: regular rate, rhythm, normal peripheral pulses Gastrointestinal/Abdominal: Present: normal bowel sounds, nontender, soft Back Exam: Present: normal range of motion Extremity Exam: Present: extremity edema, other - no SDVT findings Neurological Exam: Present: alert, no motor/sensory deficits, other - no acute unilateral focal motor or sensory deficits Skin Exam: Present: normal color, warm/dry Progress - Results and Orders Patient's Lab Results:: I have reviewed the patient's lab results. - Vital Signs Patient's Vital Signs:: I have reviewed the patient's vital signs. Vital Signs: Vital Signs 12/10/19 12:10 12/10/19 12:14 12/10/19 13:00 Temperature 36.9 C Pulse Rate 80 79 80 Respiratory Rate 21 H 20 18 Blood Pressure 120/61 O2 Sat by Pulse Oximetry 89 L 94 94 12/10/19 13:10 12/10/19 13:30 12/10/19 13:37 Temperature Pulse Rate 80 80 80 Respiratory Rate 20 16 Blood Pressure 157/64 H 151/71 H O2 Sat by Pulse Oximetry 96 12/10/19 14:00 Temperature Pulse Rate 80 Respiratory Rate 15 Blood Pressure 152/69 H O2 Sat by Pulse Oximetry 94 - EKG EKG #1 EKG read: Interp. by me EKG Comments: Paced rate 80. NO clear evidence of STEMI - X-Ray X-Ray #1 X-Ray: chest Interpretation: Interp. by me X-ray Comments: I reviewed official radiology report - Progress/Reassessment Chief Complaint: Upper Respiratory Symptoms Progress Note-Subjective: 12/10/19 14:41 Did have wheezing so steroids and neb given. Hypoxia therefore oxygen given. Does have component of CHF so IV lasix given. D/W Dr Dutton, patient will be admitted for further therapy. D/W Patient, he understands. Departure Clinical Impression: CHF (congestive heart failure), Failure of outpatient treatment, Hypoxia, Wheezing - Departure Disposition: Still a patient Condition: Fair
[2019-12-10] MEDS ORDERED: ACETAMINOPHEN 500 MG TABLET PO PRN (16:38)
[2019-12-10] MEDS ORDERED: AZITHROMYCIN 250 MG TABLET PO ONE (16:57)
--- NOTE | 2019-12-10 17:01 | HP ---
Chief Complaint - Chief Complaint Date of Service: 12/10/19 Time of Service: 17:01 Chief Complaint: Shortness of breath History of Present Illness: Darren is a 74 yo male with COPD, Chronic Kidney Disease Stage 3, mechanical atrial heart valve on Coumadin, and chronic diastolic CHF. He was seen in clinic last week and diagnosed with COPD exacerbation and started on levaquin. He reports over the weekend he was gradually getting worse with shortness of breath, cough, hoarseness, and shortness of breath. Over the weekend he has been getting more fatigued and has been moving less. He reports no improvement with the levaquin and actually worse. He monitors his oxygen at home and he dropped as low as 79% on room air and was instructed to go to the ER. In the ER he was found to be 80% on room air at time and was placed on oxygen via nasal canula to keep sats at 90% and above. He had elevated BNP and was given Lasix 40mg IV. He was give IV solumedrol for COPD exacerbation along with breathing treatment. He reports feeling a little better but still very weak and short of breath. Chest xray showed no pneumonia or severe amount of fluid. Medical History (Last Reviewed 12/10/19 @ 16:00 by Sun Martinez RN) Bilateral lower extremity edema Bunion of right foot joint was replaced by Dr. Headley 2008 Toe pain, bilateral 1st degree AV block Onset Date: Unknown Anxiety Onset Date: Unknown Asthma Onset Date: ~02/1989 CAD (coronary artery disease) Onset Date: Unknown CHF (congestive heart failure) Onset Date: Unknown COPD (chronic obstructive pulmonary disease) Onset Date: Unknown Depression Onset Date: Unknown Erectile dysfunction Onset Date: ~07/1972 Diagnosed with sterility. Fatigue Onset Date: Unknown Fuchs' endothelial dystrophy Onset Date: 12/30/17 Hearing loss Onset Date: Unknown right ear Hodgkin disease Onset Date: ~09/1980 Hyperlipidemia Onset Date: Unknown Hypothyroidism Onset Date: 03/04/10 Mechanical heart valve present Onset Date: 05/26/17 Aortic valve. Meniere disease Onset Date: Unknown Pacemaker Onset Date: Unknown Pseudophakia Onset Date: 12/30/17 Shortness of breath Onset Date: Unknown Sleep apnea Onset Date: Unknown Acute pharyngitis Onset Date: 05/21/13 Arm pain Onset Date: 11/23/13 Left arm/elbow. Breast disorder Onset Date: 06/07/12 Left breast fullness. Cough Onset Date: 09/20/14 Multifactorial. Hypoglycemia Onset Date: ~06/2001 Low back pain Onset Date: Unknown with radiculopathy Mononucleosis Onset Date: ~1988 Pericarditis Onset Date: ~1988 Acute, viral. 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 Jeremi Cha, [facility]. Left leg. History of splenectomy Onset Date: ~1969 With liver biopsy. History of toe surgery Onset Date: 10/11/08 History of tonsillectomy Onset Date: ~06/1952 S/P epidural steroid injection Onset Date: ~11/30/02 L4-5, L5-S1 Family History: Family History (Last Reviewed 12/10/19 @ 16:01 by Sun Martinez RN) Father Heart disease Hyperlipemia Hypertension CVA (cerebral vascular accident) Uncle CVA (cerebral vascular accident) Mother Diabetes Hyperlipemia Glaucoma Crohns disease Aunt Diabetes Social History: (Last Updated 12/10/19 @ 16:02 by Sun Martinez RN) Social History: Marital status: lives independently: No number of children: 1 current occupational status: retired Highest education level completed: Doctoral degree Service: No Tobacco: Smoking Status: Never smoker Alcohol: alcohol intake: current alcohol intake frequency: holiday/special occasion Substance Use: substance use type: does not use Dietary Habits: caffeine: Yes caffeine comment: current every day Type: tea Review Of Systems (GEN) - Review of Systems Generalized/Overall Review: Present: Weakness. Absent: Chills, Fever EENTM: Present: No Symptoms Reported Respiratory: Present: Cough, Shortness of Breath, Wheezing Cardiac: Present: Edema. Absent: Chest Pain, Palpitations Abdominal: Absent: Nausea, Vomiting, Abdominal Pain, Constipation, Diarrhea Genitourinary: Present: No Symptoms Reported Musculoskeletal: Present: No Symptoms Reported Neurological: Present: Weakness. Absent: Headache Skin: Present: No Symptoms Reported Endocrine: Present: No Symptoms Reported Immunizations: IMMUNIZATION HX Immunizations Up to Date Yes History of Influenza Vaccine Yes Hx Pneumococcal Vaccination Yes Allergies/Adverse Reactions: Allergies Allergy/AdvReac Type Severity Reaction Status Date / Time cat dander Allergy Other Verified 12/10/19 12:14 mold Allergy Other Verified 12/10/19 12:14 pollen extracts Allergy Other Verified 12/10/19 12:14 Home Medications: HOME MEDICATIONS Carvedilol [Coreg] 25 mg PO BID 06/12/13 [Last Taken 04/03/18 09:00] Arformoterol Tartrate [Brovana] 15 mcg IH BID 11/21/13 [Last Taken 04/03/18 09:00] Budesonide [Pulmicort] 0.5 mg IH BID 02/04/14 [Last Taken 04/03/18 09:00] Nitroglycerin 0.4 mg SL [id number] PRN 02/09/14 [Last Taken Unknown] Levalbuterol Tartrate [Xopenex Hfa] 2 puff IH Q6H PRN 07/22/14 [Last Taken 07/20/14 08:30] Albuterol Sulfate 2.5 mg IH DAILY 09/23/14 [Last Taken 04/02/18 16:00] Atorvastatin Calcium [Lipitor] 40 mg PO HS 09/23/14 [Last Taken 04/02/18 21:00] Fluorometholone [FML Ophthalmic Suspension] 1 drp LEFTEYE DAILY 09/23/14 [Last Taken 04/03/18 08:00] Acetaminophen 1,000 mg PO Q6H 04/03/18 [Last Taken Unknown] fluticasone propionate 50 mcg/actuation nasal spray,suspension 2 spray [place]TON BID #15.8 g 05/01/18 [Last Taken Unknown] amiodarone 200 mg tablet 200 mg PO DAILY 36 Days #36 tab 10/31/18 [Last Taken Unknown] prednisolone acetate 1 % eye drops,suspension 1 drp OP DAILY 04/06/19 [Last Taken Unknown] warfarin 2.5 mg tablet 2.5 mg PO SUMOTUTHFRSA tab 04/06/19 [Last Taken Unknown] warfarin 5 mg tablet 5 mg PO WE tab 04/06/19 [Last Taken Unknown] Allopurinol [Zyloprim] 150 mg PO DAILY 06/07/19 [Last Taken Unknown] potassium chloride 10 mEq capsule,extended release 20 meq PO TID #540 cap 06/18/19 [Last Taken Unknown] revefenacin 175 mcg/3 mL solution for nebulization 1 puff IH DAILY #90 ml 07/06/19 [Last Taken Unknown] fexofenadine 180 mg tablet 180 mg PO DAILY 10/26/19 [Last Taken Unknown] levothyroxine 50 mcg capsule 50 mcg PO DAILY 10/26/19 [Last Taken Unknown] levofloxacin 750 mg tablet 750 mg PO DAILY #10 tab 12/05/19 [Last Taken Unknown] Arformoterol Tartrate [Brovana] 15 mcg INHALATION BID 12/10/19 [Last Taken Unknown] bupropion HCl 150 mg 24 hr tablet, extended release 150 mg PO DAILY #90 tab 12/11/19 [Last Taken Unknown] furosemide 80 mg tablet 80 mg PO DAILY #90 tab 12/11/19 [Last Taken Unknown] tamsulosin 0.4 mg capsule 0.4 mg PO DAILY #90 cap 12/11/19 [Last Taken Unknown] Exam - Exam Vital Signs: Vital Signs - Last Taken Temp 36.5 C 12/10/19 14:56 Pulse 81 12/10/19 15:50 Resp 22 H 12/10/19 14:56 BP 146/70 12/10/19 14:56 Pulse Ox 90 L 12/10/19 14:56 Constitutional: Present: Alert, Oriented x3, Cooperative ENT Exam: Present: hearing grossly normal Eye Exam: bilateral eye: normal inspection Respiratory: Present: decreased breath sounds, wheezing Cardiovascular/Chest: Present: regular rate, rhythm, other - aortic click from valve Peripheral Pulses: radial (R): 2+, radial (L): 2+ Abdomen: Present: Normal bowel sounds, soft, nontender, nondistended Skin Exam: Present: normal color, warm/dry, no cyanosis Eye contact: Present: cooperative, good eye contact, normal speech Thoughts: Present: normal thought pattern, no apparent hallucination Diagnostic Studies: Abnormal Lab Results 12/10/19 12/10/19 12/10/19 Range/Units 12:30 12:30 12:30 RBC 4.09 L (4.7-6.0) M/mm3 Hgb 13.0 L (13.5-18.0) gm/dL Hct 39.3 L (42.0-52.0) % MCH 31.8 H (27-31) pg RDW 17.6 H (11.5-14.0) % MPV 12.0 H (8-11.3) fl Band Neuts % (Manual) 6 H (0-2.0) % Lymphocytes % (Manual) 9 L (20-51) % Monocytes % (Manual) 13 H (0-9) % Lymphocytes # (Manual) 0.9 L (1.5-3.5) k/mm3 Monocytes # (Manual) 1.3 H (0.0-1.0) k/mm3 Atypic/Reactive Lymphs 13 H (0-2) % Sodium 144 H (132-142) mmol/L Plasma Sodium 144 H (130-142) mmol/L BUN 55 H (6-23) mg/dL Creatinine 2.57 H D (0.4-1.4) mg/dL Est GFR (Non-Af Amer) 26 L D (60-130) mL/min Random Glucose 124 H (70-110) mg/dL B-Natriuretic Peptide 3956 H (5-350) pg/mL Laboratory Results WBC 10.3 K/mm3 (4.0-10.5) 12/10/19 12:30 RBC 4.09 M/mm3 (4.7-6.0) L 12/10/19 12:30 Hgb 13.0 gm/dL (13.5-18.0) L 12/10/19 12:30 Hct 39.3 % (42.0-52.0) L 12/10/19 12:30 MCV 96.1 fl (78-100) 12/10/19 12:30 MCH 31.8 pg (27-31) H 12/10/19 12:30 MCHC 33.1 g/dl (32-36) 12/10/19 12:30 RDW 17.6 % (11.5-14.0) H 12/10/19 12:30 Plt Count 220 K/mm3 (150-450) 12/10/19 12:30 MPV 12.0 fl (8-11.3) H 12/10/19 12:30 Neutrophils % (Manual) 57 % (42-75) 12/10/19 12:30 Band Neuts % (Manual) 6 % (0-2.0) H 12/10/19 12:30 Lymphocytes % (Manual) 9 % (20-51) L 12/10/19 12:30 Monocytes % (Manual) 13 % (0-9) H 12/10/19 12:30 Eosinophils % (Manual) 2 % (0-3) 12/10/19 12:30 Neutrophils # (Manual) 5.9 K/mm3 (1.3-6.0) 12/10/19 12:30 Lymphocytes # (Manual) 0.9 k/mm3 (1.5-3.5) L 12/10/19 12:30 Monocytes # (Manual) 1.3 k/mm3 (0.0-1.0) H 12/10/19 12:30 Eosinophils # (Manual) 0.2 k/mm3 (0.0-0.7) 12/10/19 12:30 Atypic/Reactive Lymphs 13 % (0-2) H 12/10/19 12:30 Platelet Estimate Normal (NORMAL) 12/10/19 12:30 Anisocytosis 2+ 12/10/19 12:30 Microcytosis 1+ 12/10/19 12:30 Target Cells 1+ 12/10/19 12:30 Ovalocytes 1+ 12/10/19 12:30 Schistocytes 1+ 12/10/19 12:30 Sodium 144 mmol/L (132-142) H 12/10/19 12:30 Plasma Sodium 144 mmol/L (130-142) H 12/10/19 12:30 Potassium 4.1 mmol/L (3.4-4.6) D 12/10/19 12:30 Chloride 106 mmol/L (97-106) 12/10/19 12:30 Carbon Dioxide 30.4 mmol/L (24-32.6) 12/10/19 12:30 Anion Gap 11.7 mmol/L (6.8-13.8) 12/10/19 12:30 BUN 55 mg/dL (6-23) H 12/10/19 12:30 Creatinine 2.57 mg/dL (0.4-1.4) H D 12/10/19 12:30 Est GFR (Non-Af Amer) 26 mL/min (60-130) L D 12/10/19 12:30 BUN/Creatinine Ratio 21.4 (9.0-21.6) 12/10/19 12:30 Random Glucose 124 mg/dL (70-110) H 12/10/19 12:30 Calcium 8.5 mg/dL (7.9-10.9) 12/10/19 12:30 Calcium Adj for Albumin 8.6 mg/dL (8.4-10.2) 12/10/19 12:30 Total Bilirubin 0.5 mg/dL (0.0-1.1) 12/10/19 12:30 AST 28 U/L (0-48) 12/10/19 12:30 ALT 23 U/L (19-67) 12/10/19 12:30 Alkaline Phosphatase 89 U/L (50-170) 12/10/19 12:30 B-Natriuretic Peptide 3956 pg/mL (5-350) H 12/10/19 12:30 Total Protein 6.5 gm/dL (6.2-8.2) 12/10/19 12:30 Albumin 3.5 gm/dl (3.4-5.0) 12/10/19 12:30 Assessment/Plan - Narrative Narrative: Darren has acute respiratory failure with hypoxia of as low as 79% on room air. With 1lpm of oxygen his saturation improved to 90%. He will remain on oxygen and will attempt to wean. Will schedule duonebs every 4 hours. Will continue steroids. Will change antibiotics from levaquin to rocephin/azithromycin. Will give him incentive spirometer and cornet. Will admit to inpatient status for failed outpatient treatment and acute respiratory failure it will take >2 midnights to see improvement and wean from oxygen. I believe he also has acute on chronic diastolic CHF due to his decreased activity and retaining fluids. Will treat with IV lasix prn and monitor response. - Assessment/Plan (1) Acute respiratory failure with hypoxia Problem: Acute (2) COPD exacerbation Problem: Acute (3) Acute on chronic diastolic CHF (congestive heart failure) Problem: Acute
[2019-12-10] MEDS ORDERED: BUDESONIDE 0.5 MG/2 ML VIAL.NEB IH ONE (17:14)
[2019-12-10] MEDS: ALBUTEROL SULFATE/IPRATROPIUM 3 ML NEBU IH SCH ×3 (17:19→22:08)
[2019-12-10] MEDS: BUDESONIDE 0.5 MG/2 ML VIAL.NEB IH SCH ×2 (17:19→18:25)
[2019-12-10 17:39] LABS: Prothrombin Time (Patient) 60.2 Seconds (9.1-10.7)
[2019-12-10] MEDS: POTASSIUM CHLORIDE 20 MEQ TABLET.SA PO SCH ×2 (17:43→22:05)
[2019-12-10] MEDS: ALLOPURINOL 300 MG TABLET PO SCH (17:44)
[2019-12-10] MEDS: SILVER SULFADIAZINE 25 APPL JAR TP SCH ×2 (17:44→19:09)
[2019-12-10 17:47] LABS: INR 6.54 INR (0.92-1.08)
[2019-12-10] MEDS: TAMSULOSIN HCL 0.4 MG CAP.SR.24H PO SCH (18:57)
[2019-12-10] MEDS: ROSUVASTATIN CALCIUM 20 MG TABLET PO SCH (22:03)
[2019-12-10] MEDS: CARVEDILOL 25 MG TABLET PO SCH (22:04)
[2019-12-10] MEDS: LORATADINE 10 MG TABLET PO SCH (22:05)
[2019-12-10] MEDS: FLUTICASONE PROPIONATE 120 SPRAY INHALER NS SCH (22:05)
[2019-12-11] MEDS: ALBUTEROL SULFATE/IPRATROPIUM 3 ML NEBU IH SCH ×6 (02:10→22:06)
[2019-12-11] MEDS: BUDESONIDE 0.5 MG/2 ML VIAL.NEB IH SCH ×2 (05:59→18:07)
[2019-12-11] MEDS: WARFARIN SODIUM 2.5 MG TABLET PO SCH (06:19)
[2019-12-11 06:44] LABS: Prothrombin Time (Patient) 47.5 Seconds (9.1-10.7)
[2019-12-11 06:45] LABS: Hemoglobin 12.8 gm/dL (13.5-18.0); Mean Cell Volume 94.9 fl (78-100); Mean Corpuscular Hemoglobin 31.1 pg (27-31); Mean Corpuscular Hgb Conc 32.8 g/dl (32-36); Mean Platelet Volume 11.4 fl (8-11.3); Neutrophil # 9.3 K/mm3 (1.3-6.0); Neutrophil % 91.4 % (42-75.0); Platelet Count 224 K/mm3 (150-450); Red Blood Count 4.11 M/mm3 (4.7-6.0); Red Cell Distribution Width 17.2 % (11.5-14.0); White Blood Count 10.1 K/mm3 (4.0-10.5)
[2019-12-11 06:55] LABS: INR 5.11 INR (0.92-1.08)
[2019-12-11 06:58] LABS: Albumin * 3.3 gm/dl (3.4-5.0); Anion Gap 14.4 mmol/L (6.8-13.8); Bilirubin, Total 0.6 mg/dL (0.0-1.1); Ca. Corrected For Albumin 8.9 mg/dL (8.4-10.2); Calcium * 8.7 mg/dL (7.9-10.9); Carbon Dioxide 26.8 mmol/L (24-32.6); Potassium 4.2 mmol/L (3.4-4.6); Total Protein 6.6 gm/dL (6.2-8.2)
[2019-12-11] MEDS: LEVOTHYROXINE SODIUM 50 MCG TABLET PO SCH (07:13)
[2019-12-11] MEDS ORDERED: REVEFENACIN 175 MCG NEB SCH (09:00)
[2019-12-11] MEDS ORDERED: LOSARTAN POTASSIUM 50 MG TABLET PO SCH (09:00)
[2019-12-11] MEDS: predniSONE 20 MG TABLET PO SCH (09:02)
[2019-12-11] MEDS: AZITHROMYCIN 250 MG TABLET PO SCH (09:02)
[2019-12-11] MEDS: buPROPion HCL 150 MG TAB.SR.24H PO SCH (09:02)
[2019-12-11] MEDS: FLUTICASONE PROPIONATE 120 SPRAY INHALER NS SCH ×2 (09:02→20:31)
[2019-12-11] MEDS: AMIODARONE HCL 200 MG TABLET PO SCH (09:03)
[2019-12-11] MEDS: CARVEDILOL 25 MG TABLET PO SCH ×2 (09:03→20:29)
[2019-12-11] MEDS: FLUOROMETHOLONE LEFTEYE SCH (09:03)
[2019-12-11] MEDS: POTASSIUM CHLORIDE 20 MEQ TABLET.SA PO SCH ×3 (09:03→20:30)
[2019-12-11] MEDS: prednisoLONE ACETATE 50 DROP BTL OP SCH (09:04)
[2019-12-11] MEDS: SILVER SULFADIAZINE 25 APPL JAR TP SCH (09:04)
[2019-12-11] MEDS ORDERED: FUROSEMIDE 10 MG/ML VIAL IV ONE (09:09)
[2019-12-11] MEDS: ALLOPURINOL 300 MG TABLET PO SCH (16:38)
[2019-12-11] MEDS: TAMSULOSIN HCL 0.4 MG CAP.SR.24H PO SCH (18:38)
[2019-12-11] MEDS: LORATADINE 10 MG TABLET PO SCH (20:28)
[2019-12-11] MEDS: ROSUVASTATIN CALCIUM 20 MG TABLET PO SCH (20:29)
--- NOTE | 2019-12-11 23:13 | PN ---
Subjective - Date and Time Seen Date: 12/11/19 Time: 16:00 Subjective Narrative: Darren reports feeling better today. Still very short of breath and drops into the 80s with ambulation on room air. He has been above 90% on room air at rest. Reports very weak. No fever or chills. He had an ok response with 60mg of IV lasix but it did not have much more than 40mg lasix. Objective - Vitals Vitals: Last Vital Signs Temp 36.7 C 12/11/19 21:11 Pulse 94 12/11/19 22:16 Resp 20 12/11/19 22:16 BP 153/65 H 12/11/19 21:11 Pulse Ox 97 12/11/19 22:06 - Abnormal Lab Findings Abnormal Lab Findings: Abnormal Lab Results 12/11/19 12/11/19 12/11/19 Range/Units 06:24 06:24 06:24 RBC 4.11 L (4.7-6.0) M/mm3 Hgb 12.8 L (13.5-18.0) gm/dL Hct 39.0 L (42.0-52.0) % MCH 31.1 H (27-31) pg RDW 17.2 H (11.5-14.0) % MPV 11.4 H (8-11.3) fl Immature Gran % (Auto) 0.50 H (0.001-0.429) % Immature Gran # (Auto) 0.05 H (0.000-0.0310) K/mm3 Neutrophils % 91.4 H (42-75.0) % Lymphocytes % 6.1 L (20-51) % Neutrophils # 9.3 H (1.3-6.0) K/mm3 Lymphocytes # 0.62 L (1.5-3.5) k/mm3 PT 47.5 H (9.1-10.7) Seconds INR (Anticoag Therapy) 5.11 H* (0.92-1.08) INR Plasma Sodium 143 H (130-142) mmol/L Anion Gap 14.4 H (6.8-13.8) mmol/L BUN 52 H (6-23) mg/dL Creatinine 2.26 H (0.4-1.4) mg/dL Est GFR (Non-Af Amer) 30 L (60-130) mL/min BUN/Creatinine Ratio 23.0 H (9.0-21.6) Random Glucose 149 H (70-110) mg/dL B-Natriuretic Peptide 5224 H (5-350) pg/mL Albumin 3.3 L (3.4-5.0) gm/dl - Exam Constitutional: Present: Alert, Oriented x3, Cooperative Respiratory: Present: rhonchi, wheezing Cardiovascular/Chest: Present: regular rate, rhythm, other - aortic click valve Abdomen: Present: Normal bowel sounds, soft, nontender, nondistended Appearance: Present: appropriate insight Eye contact: Present: cooperative, good eye contact, normal speech Assessment/Plan Plan Narrative: Not currently needing oxygen at rest but saturation drops with activity. Continue steroids, nebs, rocephin, azith, and lasix. Anticipate discharge in 2-3 days. He is gradually improving, will consult PT for tomorrow to work on strength. - Problems/Diagnosis (1) Acute respiratory failure with hypoxia Problem: Acute (2) COPD exacerbation Problem: Acute (3) Acute on chronic diastolic CHF (congestive heart failure) Problem: Acute
[2019-12-12] MEDS: ALBUTEROL SULFATE/IPRATROPIUM 3 ML NEBU IH SCH ×6 (02:14→23:16)
[2019-12-12] MEDS: BUDESONIDE 0.5 MG/2 ML VIAL.NEB IH SCH ×2 (06:08→18:02)
[2019-12-12 06:40] LABS: Prothrombin Time (Patient) 52.9 Seconds (9.1-10.7)
[2019-12-12 06:54] LABS: INR 5.71 INR (0.92-1.08)
[2019-12-12] MEDS: LEVOTHYROXINE SODIUM 50 MCG TABLET PO SCH (07:03)
[2019-12-12] MEDS ORDERED: FUROSEMIDE 10 MG/ML VIAL IV ONE (09:12)
[2019-12-12 09:17] LABS: Hematocrit 38.9 % (42.0-52.0); Hemoglobin 12.8 gm/dL (13.5-18.0); Mean Cell Volume 95.3 fl (78-100); Mean Corpuscular Hemoglobin 31.4 pg (27-31); Mean Corpuscular Hgb Conc 32.9 g/dl (32-36); NRBC# 0.1 k/mm3 (0-1); Neutrophil # 17.8 K/mm3 (1.3-6.0); Neutrophil % 87.3 % (42-75.0); Platelet Count 251 K/mm3 (150-450); Red Blood Count 4.08 M/mm3 (4.7-6.0); Red Cell Distribution Width 17.3 % (11.5-14.0); White Blood Count 20.4 K/mm3 (4.0-10.5)
[2019-12-12 09:33] LABS: Albumin * 3.4 gm/dl (3.4-5.0); Anion Gap 13.7 mmol/L (6.8-13.8); BUN/Creatinine Ratio 27.6 (9.0-21.6); Bilirubin, Total 0.4 mg/dL (0.0-1.1); Ca. Corrected For Albumin 8.9 mg/dL (8.4-10.2); Calcium * 8.7 mg/dL (7.9-10.9); Carbon Dioxide 28.7 mmol/L (24-32.6); Potassium 4.4 mmol/L (3.4-4.6); Total Protein 6.3 gm/dL (6.2-8.2)
[2019-12-12] MEDS: FLUOROMETHOLONE LEFTEYE SCH (09:49)
[2019-12-12] MEDS: FLUTICASONE PROPIONATE 120 SPRAY INHALER NS SCH ×2 (09:49→20:30)
[2019-12-12] MEDS: AMIODARONE HCL 200 MG TABLET PO SCH (09:49)
[2019-12-12] MEDS: CARVEDILOL 25 MG TABLET PO SCH ×2 (09:49→20:30)
[2019-12-12] MEDS: prednisoLONE ACETATE 50 DROP BTL OP SCH (09:50)
[2019-12-12] MEDS: predniSONE 20 MG TABLET PO SCH (09:50)
[2019-12-12] MEDS: POTASSIUM CHLORIDE 20 MEQ TABLET.SA PO SCH ×3 (09:50→20:31)
[2019-12-12] MEDS: buPROPion HCL 150 MG TAB.SR.24H PO SCH (09:51)
[2019-12-12] MEDS: AZITHROMYCIN 250 MG TABLET PO SCH (09:51)
[2019-12-12] MEDS: SILVER SULFADIAZINE 25 APPL JAR TP SCH (09:51)
[2019-12-12] MEDS ORDERED: BENZOCAINE/MENTHOL 16 EACH BOX MM PRN (10:28)
[2019-12-12] MEDS: BENZONATATE 100 MG CAPSULE PO PRN ×2 (10:51→23:47)
--- NOTE | 2019-12-12 12:47 | PN ---
Subjective - Date and Time Seen Date: 12/12/19 Time: 12:47 Subjective Narrative: Darren reports worsening cough today. He feels better overall and less shortness of breath. He reports oxygen still dropped to 87% with activity but he was able to cover further distance. Objective - Vitals Vitals: Last Vital Signs Temp 36.4 C 12/12/19 10:01 Pulse 82 12/12/19 10:39 Resp 19 12/12/19 10:39 BP 118/57 12/12/19 10:11 Pulse Ox 94 12/12/19 10:29 - Abnormal Lab Findings Abnormal Lab Findings: Abnormal Lab Results 12/12/19 12/12/19 12/12/19 Range/Units 06:15 06:15 06:15 WBC 20.4 H D (4.0-10.5) K/mm3 RBC 4.08 L (4.7-6.0) M/mm3 Hgb 12.8 L (13.5-18.0) gm/dL Hct 38.9 L (42.0-52.0) % MCH 31.4 H (27-31) pg RDW 17.3 H (11.5-14.0) % MPV 12.0 H (8-11.3) fl Immature Gran % (Auto) 0.60 H (0.001-0.429) % Immature Gran # (Auto) 0.13 H (0.000-0.0310) K/mm3 Neutrophils % 87.3 H (42-75.0) % Lymphocytes % 4.7 L (20-51) % Neutrophils # 17.8 H (1.3-6.0) K/mm3 Lymphocytes # 0.95 L (1.5-3.5) k/mm3 Monocytes # 1.5 H (0.0-1.0) k/mm3 PT 52.9 H (9.1-10.7) Seconds INR (Anticoag Therapy) 5.71 H* (0.92-1.08) INR BUN 58 H (6-23) mg/dL Creatinine 2.10 H (0.4-1.4) mg/dL Est GFR (Non-Af Amer) 33 L (60-130) mL/min BUN/Creatinine Ratio 27.6 H (9.0-21.6) Random Glucose 132 H (70-110) mg/dL - Exam Constitutional: Present: Alert, Oriented x3, Cooperative ENT Exam: Present: hearing grossly normal Respiratory: Present: no respiratory distress, wheezing Cardiovascular/Chest: Present: regular rate, rhythm, other - aortic valve click Abdomen: Present: Normal bowel sounds, soft, nontender, nondistended Skin Exam: Present: normal color, warm/dry, no cyanosis Assessment/Plan Plan Narrative: Continue to work on improving function without need for oxygen. Continue rocephin and azithromycin, steroids, and nebs. WBC elevated today (steroid effect vs worsening infection?) Clinically he feels better except for the cough. Will treat this with mucinex and benzonatate prn. If WBC continues to worsen and he clinically worsens may need to change antibiotics, but as he is feeling better today will continue current treatment. - Problems/Diagnosis (1) Acute respiratory failure with hypoxia Problem: Acute (2) COPD exacerbation Problem: Acute (3) Acute on chronic diastolic CHF (congestive heart failure) Problem: Acute
[2019-12-12] MEDS: ALLOPURINOL 300 MG TABLET PO SCH (16:28)
[2019-12-12] MEDS ORDERED: WARFARIN SODIUM 5 MG TABLET PO SCH (18:46)
[2019-12-12] MEDS: TAMSULOSIN HCL 0.4 MG CAP.SR.24H PO SCH (19:34)
[2019-12-12] MEDS: ROSUVASTATIN CALCIUM 20 MG TABLET PO SCH (20:31)
[2019-12-12] MEDS: LORATADINE 10 MG TABLET PO SCH (20:31)
[2019-12-13] MEDS: ALBUTEROL SULFATE/IPRATROPIUM 3 ML NEBU IH SCH ×7 (02:00→22:20)
[2019-12-13] MEDS: BUDESONIDE 0.5 MG/2 ML VIAL.NEB IH SCH ×3 (06:04→18:03)
[2019-12-13 06:29] LABS: Hematocrit 39.6 % (42.0-52.0); Hemoglobin 13.2 gm/dL (13.5-18.0); Mean Cell Volume 94.1 fl (78-100); Mean Corpuscular Hemoglobin 31.4 pg (27-31); Mean Corpuscular Hgb Conc 33.3 g/dl (32-36); Mean Platelet Volume 11.2 fl (8-11.3); Platelet Count 245 K/mm3 (150-450); Red Blood Count 4.21 M/mm3 (4.7-6.0); White Blood Count 21.5 K/mm3 (4.0-10.5)
[2019-12-13 06:32] LABS: Prothrombin Time (Patient) 35.5 Seconds (9.1-10.7)
[2019-12-13 06:33] LABS: INR 3.77 INR (0.92-1.08); Total Cells Counted 100
[2019-12-13] MEDS: LEVOTHYROXINE SODIUM 50 MCG TABLET PO SCH (06:38)
[2019-12-13 06:43] LABS: Albumin * 3.5 gm/dl (3.4-5.0); Anion Gap 14.6 mmol/L (6.8-13.8); BUN/Creatinine Ratio 29.5 (9.0-21.6); Bilirubin, Total 0.4 mg/dL (0.0-1.1); Calcium * 8.9 mg/dL (7.9-10.9); Carbon Dioxide 27.5 mmol/L (24-32.6); Potassium 4.1 mmol/L (3.4-4.6); Total Protein 6.3 gm/dL (6.2-8.2)
[2019-12-13 06:44] LABS: Lymphocyte 9 % (20-51); Monocyte 2 % (0-9); Neutrophil 89 % (42-75); Neutrophil # 19.1 K/mm3 (1.3-6.0); Platelet Estimate Normal (NORMAL)
[2019-12-13 06:45] LABS: RBC Morphology Normal (NORMAL)
[2019-12-13] MEDS: SILVER SULFADIAZINE 25 APPL JAR TP SCH (08:35)
[2019-12-13] MEDS: CARVEDILOL 25 MG TABLET PO SCH ×2 (08:51→20:29)
[2019-12-13] MEDS: AMIODARONE HCL 200 MG TABLET PO SCH (08:51)
[2019-12-13] MEDS: FLUTICASONE PROPIONATE 120 SPRAY INHALER NS SCH ×2 (08:52→20:29)
[2019-12-13] MEDS: FLUOROMETHOLONE LEFTEYE SCH (08:52)
[2019-12-13] MEDS: POTASSIUM CHLORIDE 20 MEQ TABLET.SA PO SCH ×3 (08:53→20:30)
[2019-12-13] MEDS: prednisoLONE ACETATE 50 DROP BTL OP SCH (08:53)
[2019-12-13] MEDS: predniSONE 20 MG TABLET PO SCH (08:54)
[2019-12-13] MEDS: AZITHROMYCIN 250 MG TABLET PO SCH (08:55)
[2019-12-13] MEDS: buPROPion HCL 150 MG TAB.SR.24H PO SCH (09:04)
[2019-12-13] MEDS: LINEZOLID 600 MG TABLET PO SCH ×2 (10:33→22:52)
[2019-12-13] MEDS: ALLOPURINOL 300 MG TABLET PO SCH (17:14)
[2019-12-13] MEDS ORDERED: ACETYLCYSTEINE 100 MG/ML VIAL ONE (18:23)
[2019-12-13] MEDS ORDERED: ACETYLCYSTEINE 200 MG/ML VIAL ONE (18:47)
[2019-12-13] MEDS: TAMSULOSIN HCL 0.4 MG CAP.SR.24H PO SCH (20:28)
[2019-12-13] MEDS: LORATADINE 10 MG TABLET PO SCH (20:28)
[2019-12-13] MEDS: ROSUVASTATIN CALCIUM 20 MG TABLET PO SCH (20:29)
[2019-12-13] MEDS: ACETYLCYSTEINE 200 MG/ML VIAL IH SCH (22:20)
[2019-12-13] MEDS: BENZONATATE 100 MG CAPSULE PO PRN (22:51)
[2019-12-14] MEDS: ACETYLCYSTEINE 200 MG/ML VIAL IH SCH ×6 (02:05→22:58)
[2019-12-14] MEDS: ALBUTEROL SULFATE/IPRATROPIUM 3 ML NEBU IH SCH ×6 (02:05→22:56)
[2019-12-14] MEDS: BUDESONIDE 0.5 MG/2 ML VIAL.NEB IH SCH ×2 (06:05→18:26)
[2019-12-14 06:25] LABS: Prothrombin Time (Patient) 22.6 Seconds (9.1-10.7)
[2019-12-14 06:29] LABS: INR 2.36 INR (0.92-1.08)
[2019-12-14] MEDS: LEVOTHYROXINE SODIUM 50 MCG TABLET PO SCH (07:13)
[2019-12-14] MEDS ORDERED: FUROSEMIDE 10 MG/ML VIAL IV ONE (08:38)
--- NOTE | 2019-12-14 08:45 | PN ---
Subjective - Date and Time Seen Date: 12/13/19 Time: 12:00 Subjective Narrative: Darren reports continued bad cough. No fever or chills. He reports still weak, but getting stronger with walking. Sputum culture came back today showing MRSA. Patient placed in respiratory droplet precautions and started on linezolid. Objective - Vitals Vitals: Last Vital Signs Selected Entries 12/13/19 10:00 Temperature 97.7 C H Pulse Rate 80 Respiratory Rate 18 Blood Pressure 139/73 O2 Sat by Pulse Oximetry 92 L Oxygen Delivery Method Room Air - Abnormal Lab Findings Abnormal Lab Findings: Abnormal Lab Results 12/14/19 Range/Units 06:10 PT 22.6 H (9.1-10.7) Seconds INR (Anticoag Therapy) 2.36 H (0.92-1.08) INR - Exam Constitutional: Present: Alert, Oriented x3, Cooperative ENT Exam: Present: hearing grossly normal Respiratory: Present: no respiratory distress, wheezing Cardiovascular/Chest: Present: regular rate, rhythm, other - aortic valve click Abdomen: Present: Normal bowel sounds, soft, nontender, nondistended Assessment/Plan Plan Narrative: Sputum positive for MRSA, concern for potential MRSA pneumonia. Started on linezolid for treatment. As he had clinically improved with rocephin and azithromycin will continue these until completed course. Continue predinisone and lasix prn. Continue nebs, incentive spirometer, and cornet. Started PT for strengthening. He has weaned off oxygen. - Problems/Diagnosis (1) MRSA (methicillin resistant staphylococcus aureus) pneumonia Problem: Acute Qualifiers: Laterality: unspecified laterality Lung location: unspecified part of lung Qualified Code(s): J15.212 - Pneumonia due to Methicillin resistant Staphylococcus aureus (2) Acute respiratory failure with hypoxia Problem: Resolved (3) COPD exacerbation Problem: Acute (4) Acute on chronic diastolic CHF (congestive heart failure) Problem: Acute
[2019-12-14] MEDS: AMIODARONE HCL 200 MG TABLET PO SCH (09:05)
[2019-12-14] MEDS: CARVEDILOL 25 MG TABLET PO SCH ×2 (09:05→20:17)
[2019-12-14] MEDS: FLUTICASONE PROPIONATE 120 SPRAY INHALER NS SCH ×2 (09:06→20:17)
[2019-12-14] MEDS: FLUOROMETHOLONE LEFTEYE SCH (09:06)
[2019-12-14] MEDS: prednisoLONE ACETATE 50 DROP BTL OP SCH (09:07)
[2019-12-14] MEDS: POTASSIUM CHLORIDE 20 MEQ TABLET.SA PO SCH ×3 (09:07→20:17)
[2019-12-14] MEDS: predniSONE 20 MG TABLET PO SCH (09:08)
[2019-12-14] MEDS: buPROPion HCL 150 MG TAB.SR.24H PO SCH (09:08)
[2019-12-14] MEDS: SILVER SULFADIAZINE 25 APPL JAR TP SCH (09:08)
[2019-12-14] MEDS: AZITHROMYCIN 250 MG TABLET PO SCH (09:09)
[2019-12-14] MEDS: BENZONATATE 100 MG CAPSULE PO PRN (09:10)
[2019-12-14] MEDS: LINEZOLID 600 MG TABLET PO SCH ×3 (09:10→21:51)
[2019-12-14 09:23] LABS: Albumin * 3.2 gm/dl (3.4-5.0); Anion Gap 15.3 mmol/L (6.8-13.8); BUN/Creatinine Ratio 31.8 (9.0-21.6); Bilirubin, Total 0.4 mg/dL (0.0-1.1); Calcium * 8.7 mg/dL (7.9-10.9); Carbon Dioxide 25.8 mmol/L (24-32.6); Potassium 5.1 mmol/L (3.4-4.6); Total Protein 6.3 gm/dL (6.2-8.2)
[2019-12-14 09:26] LABS: Mean Cell Volume 94.2 fl (78-100); Mean Corpuscular Hemoglobin 31.4 pg (27-31); Mean Corpuscular Hgb Conc 33.3 g/dl (32-36); Mean Platelet Volume 11.2 fl (8-11.3); NRBC# 0.1 k/mm3 (0-1); Neutrophil # 16.1 K/mm3 (1.3-6.0); Neutrophil % 85.8 % (42-75.0); Platelet Count 269 K/mm3 (150-450); Red Blood Count 4.14 M/mm3 (4.7-6.0); Red Cell Distribution Width 17.2 % (11.5-14.0); White Blood Count 18.8 K/mm3 (4.0-10.5)
[2019-12-14] MEDS: WARFARIN SODIUM 2.5 MG TABLET PO SCH (16:22)
[2019-12-14] MEDS: ALLOPURINOL 300 MG TABLET PO SCH (16:22)
[2019-12-14] MEDS: LORATADINE 10 MG TABLET PO SCH (20:16)
[2019-12-14] MEDS: TAMSULOSIN HCL 0.4 MG CAP.SR.24H PO SCH (20:16)
[2019-12-14] MEDS: ROSUVASTATIN CALCIUM 20 MG TABLET PO SCH (20:17)
--- NOTE | 2019-12-14 23:07 | PN ---
Subjective - Date and Time Seen Date: 12/14/19 Time: 12:30 Subjective Narrative: WBC improved today to 18k. He reports he feels like his cough is starting to loosen up with the mucomyst. He is coughing a lot but still mostly dry. His voice is less hoarse today. No fever, chills, nausea, or vomiting. Strength a little better. Objective - Vitals Vitals: Last Vital Signs Temp 36.3 C 12/14/19 21:54 Pulse 76 12/14/19 22:58 Resp 21 H 12/14/19 22:58 BP 154/71 H 12/14/19 21:54 Pulse Ox 96 12/14/19 22:58 - Abnormal Lab Findings Abnormal Lab Findings: Abnormal Lab Results 12/14/19 12/14/19 12/14/19 Range/Units 06:10 06:10 09:12 WBC 18.8 H (4.0-10.5) K/mm3 RBC 4.14 L (4.7-6.0) M/mm3 Hgb 13.0 L (13.5-18.0) gm/dL Hct 39.0 L (42.0-52.0) % MCH 31.4 H (27-31) pg RDW 17.2 H (11.5-14.0) % Immature Gran % (Auto) 1.70 H (0.001-0.429) % Immature Gran # (Auto) 0.32 H (0.000-0.0310) K/mm3 Neutrophils % 85.8 H (42-75.0) % Lymphocytes % 5.4 L (20-51) % Neutrophils # 16.1 H (1.3-6.0) K/mm3 Lymphocytes # 1.01 L (1.5-3.5) k/mm3 Monocytes # 1.3 H (0.0-1.0) k/mm3 PT 22.6 H (9.1-10.7) Seconds INR (Anticoag Therapy) 2.36 H (0.92-1.08) INR Potassium 5.1 H D (3.4-4.6) mmol/L Anion Gap 15.3 H (6.8-13.8) mmol/L BUN 57 H (6-23) mg/dL Creatinine 1.79 H (0.4-1.4) mg/dL Est GFR (Non-Af Amer) 40 L (60-130) mL/min BUN/Creatinine Ratio 31.8 H (9.0-21.6) Random Glucose 129 H (70-110) mg/dL Albumin 3.2 L (3.4-5.0) gm/dl - Exam Constitutional: Present: Alert, Oriented x3, Cooperative ENT Exam: Present: hearing grossly normal Respiratory: Present: no respiratory distress, wheezing Cardiovascular/Chest: Present: other - aortic valve click Abdomen: Present: Normal bowel sounds, soft, nontender, nondistended Extremity: Present: lower extremity edema - 2+ Skin Exam: Present: normal color, warm/dry, no cyanosis Assessment/Plan Plan Narrative: WBC improved today but still very high at 18k. Very harsh cough but potentially starting to loosen with mucomyst. Voice and strength are improved. He has improved since starting linezolid. This was added to rocephin and azithromycin because he had seemed to improve with these clinically. Sputum growing MRSA. He could potentially go home this weekend in the next 2-3 days if WBC continues to improve and he feels well enough for home discharge. Currently the cough and dyspnea with activity are too bad along with concerningly elevated WBC. - Problems/Diagnosis (1) MRSA (methicillin resistant staphylococcus aureus) pneumonia Problem: Acute Qualifiers: Laterality: unspecified laterality Lung location: unspecified part of lung Qualified Code(s): J15.212 - Pneumonia due to Methicillin resistant Staphylococcus aureus (2) Acute respiratory failure with hypoxia Problem: Resolved (3) COPD exacerbation Problem: Acute (4) Acute on chronic diastolic CHF (congestive heart failure) Problem: Acute
[2019-12-15] MEDS: ALBUTEROL SULFATE/IPRATROPIUM 3 ML NEBU IH SCH ×6 (03:04→22:35)
[2019-12-15] MEDS: ACETYLCYSTEINE 200 MG/ML VIAL IH SCH ×2 (03:05→06:14)
[2019-12-15 06:07] LABS: Hematocrit 39.1 % (42.0-52.0); Hemoglobin 13.1 gm/dL (13.5-18.0); Mean Corpuscular Hemoglobin 31.5 pg (27-31); Mean Corpuscular Hgb Conc 33.5 g/dl (32-36); Mean Platelet Volume 10.8 fl (8-11.3); Platelet Count 297 K/mm3 (150-450); Red Blood Count 4.16 M/mm3 (4.7-6.0); Red Cell Distribution Width 17.1 % (11.5-14.0); White Blood Count 21.5 K/mm3 (4.0-10.5)
[2019-12-15] MEDS: BUDESONIDE 0.5 MG/2 ML VIAL.NEB IH SCH ×2 (06:13→18:14)
[2019-12-15 06:14] LABS: Prothrombin Time (Patient) 18.5 Seconds (9.1-10.7)
[2019-12-15 06:19] LABS: Anion Gap 11.1 mmol/L (6.8-13.8); BUN/Creatinine Ratio 34.5 (9.0-21.6); Bilirubin, Total 0.4 mg/dL (0.0-1.1); Ca. Corrected For Albumin 9.3 mg/dL (8.4-10.2); Calcium * 8.8 mg/dL (7.9-10.9); Carbon Dioxide 28.9 mmol/L (24-32.6); Total Protein 6.6 gm/dL (6.2-8.2)
[2019-12-15 06:21] LABS: Total Cells Counted 100
[2019-12-15 06:28] LABS: Lymphocyte 4 % (20-51); Monocyte 6 % (0-9); Neutrophil 90 % (42-75); Neutrophil # 19.4 K/mm3 (1.3-6.0); Platelet Estimate Normal (NORMAL); RBC Morphology Normal (NORMAL)
[2019-12-15 06:34] LABS: INR 1.92 INR (0.92-1.08)
[2019-12-15] MEDS: LEVOTHYROXINE SODIUM 50 MCG TABLET PO SCH (07:17)
[2019-12-15] MEDS ORDERED: ACETYLCYSTEINE 200 MG/ML VIAL IH PRN (07:58)
[2019-12-15] MEDS: CARVEDILOL 25 MG TABLET PO SCH ×2 (09:54→21:33)
[2019-12-15] MEDS: POTASSIUM CHLORIDE 20 MEQ TABLET.SA PO SCH ×3 (09:54→21:33)
[2019-12-15] MEDS: LINEZOLID 600 MG TABLET PO SCH ×2 (09:54→21:33)
[2019-12-15] MEDS: buPROPion HCL 150 MG TAB.SR.24H PO SCH (09:54)
[2019-12-15] MEDS: AMIODARONE HCL 200 MG TABLET PO SCH (09:54)
[2019-12-15] MEDS: SILVER SULFADIAZINE 25 APPL JAR TP SCH (09:54)
[2019-12-15] MEDS: FLUTICASONE PROPIONATE 120 SPRAY INHALER NS SCH ×2 (09:54→21:33)
[2019-12-15] MEDS: predniSONE 20 MG TABLET PO SCH (09:55)
[2019-12-15] MEDS: prednisoLONE ACETATE 50 DROP BTL OP SCH (09:55)
[2019-12-15] MEDS: FLUOROMETHOLONE LEFTEYE SCH (09:55)
--- NOTE | 2019-12-15 10:57 | PN ---
Subjective - Date and Time Seen Date: 12/15/19 Time: 10:53 Subjective Narrative: Patient does not want to take the Mucomyst as it makes him cough more without bringing out any phlegm. His white blood cell count is up again to 21. Objective - Review of Systems Generalized/Overall Review: Denies: Chills, Fever EENTM: Denies: Blurred Vision Respiratory: Reports: Cough, Shortness of Breath Cardiac: Denies: Chest Pain, Edema, Palpitations Abdominal: Denies: Nausea, Vomiting, Abdominal Pain Genitourinary Symptoms: Denies: Urgency, Frequency Musculoskeletal Complaints: Denies: Joint Pain Neurological: Denies: Headache Skin: Denies: Lesions, Rash - Vitals Vitals: Last Vital Signs Temp 36.6 C 12/15/19 06:42 Pulse 80 12/15/19 10:29 Resp 20 12/15/19 10:29 BP 129/61 12/15/19 09:54 Pulse Ox 94 12/15/19 10:19 - Abnormal Lab Findings Abnormal Lab Findings: Abnormal Lab Results 12/15/19 12/15/19 12/15/19 Range/Units 06:00 06:00 06:00 WBC 21.5 H (4.0-10.5) K/mm3 RBC 4.16 L (4.7-6.0) M/mm3 Hgb 13.1 L (13.5-18.0) gm/dL Hct 39.1 L (42.0-52.0) % MCH 31.5 H (27-31) pg RDW 17.1 H (11.5-14.0) % Neutrophils % (Manual) 90 H (42-75) % Lymphocytes % (Manual) 4 L (20-51) % Neutrophils # (Manual) 19.4 H (1.3-6.0) K/mm3 Lymphocytes # (Manual) 0.9 L (1.5-3.5) k/mm3 Monocytes # (Manual) 1.3 H (0.0-1.0) k/mm3 PT 18.5 H (9.1-10.7) Seconds INR (Anticoag Therapy) 1.92 H (0.92-1.08) INR Potassium 5.0 H (3.4-4.6) mmol/L BUN 59 H (6-23) mg/dL Creatinine 1.71 H (0.4-1.4) mg/dL Est GFR (Non-Af Amer) 42 L (60-130) mL/min BUN/Creatinine Ratio 34.5 H (9.0-21.6) Random Glucose 120 H (70-110) mg/dL Albumin 3.0 L (3.4-5.0) gm/dl - Exam Constitutional: Present: Alert, Oriented x3, Cooperative, Obese ENT Exam: Present: hearing grossly normal Neck: Present: supple. Absent: lymphadenopathy (R), lymphadenopathy (L) Respiratory: Present: decreased breath sounds, wheezing - occasional, No rales Cardiovascular/Chest: Present: regular rate, rhythm, no JVD, no murmur Abdomen: Present: Normal bowel sounds, soft, nontender, nondistended Extremity: Present: no calf tenderness, pedal edema Assessment/Plan Plan Narrative: Darren Kramer was admitted for acute COPD exacerbation and has been getting breathing treatments and prednisone as well as on 3 antibiotics nowRocephin, azithromycin, linezolid for a positive MRSA on sputum. His white blood cell continues to creep up. Initial impression is due to steroids. His last x-ray was on 12/10/2019. Will repeat chest x-ray. If no evidence of infiltrate or abnormality will likely centimeters blood for peripheral smear. Consider also doing CT scan of the chest. Continue with current medications and present management. - Problems/Diagnosis (1) Leukocytosis Problem: Acute (2) COPD exacerbation Problem: Acute (3) MRSA (methicillin resistant staphylococcus aureus) pneumonia Problem: Acute Qualifiers: Laterality: unspecified laterality Lung location: unspecified part of lung Qualified Code(s): J15.212 - Pneumonia due to Methicillin resistant Staphylococcus aureus (4) Acute respiratory failure with hypoxia Problem: Resolved
[2019-12-15] MEDS: WARFARIN SODIUM 2.5 MG TABLET PO SCH (18:07)
[2019-12-15] MEDS: ALLOPURINOL 300 MG TABLET PO SCH (18:07)
[2019-12-15] MEDS: TAMSULOSIN HCL 0.4 MG CAP.SR.24H PO SCH (21:32)
[2019-12-15] MEDS: LORATADINE 10 MG TABLET PO SCH (21:32)
[2019-12-15] MEDS: ROSUVASTATIN CALCIUM 20 MG TABLET PO SCH (21:33)
[2019-12-15] MEDS: BENZONATATE 100 MG CAPSULE PO PRN (22:48)
[2019-12-16] MEDS: ALBUTEROL SULFATE/IPRATROPIUM 3 ML NEBU IH SCH ×6 (02:31→22:13)
[2019-12-16 05:13] LABS: Hematocrit 38.9 % (42.0-52.0); Mean Cell Volume 93.5 fl (78-100); Mean Corpuscular Hemoglobin 31.3 pg (27-31); Mean Corpuscular Hgb Conc 33.4 g/dl (32-36); Platelet Count 336 K/mm3 (150-450); Red Blood Count 4.16 M/mm3 (4.7-6.0); Red Cell Distribution Width 17.1 % (11.5-14.0); White Blood Count 20.3 K/mm3 (4.0-10.5)
[2019-12-16 05:18] LABS: Anion Gap 13.3 mmol/L (6.8-13.8); BUN/Creatinine Ratio 35.4 (9.0-21.6); Calcium * 8.9 mg/dL (7.9-10.9); Carbon Dioxide 25.7 mmol/L (24-32.6); Estimated Creat Clear 35.7; Prothrombin Time (Patient) 17.6 Seconds (9.1-10.7)
[2019-12-16 05:21] LABS: INR 1.82 INR (0.92-1.08)
[2019-12-16 05:24] LABS: Total Cells Counted 100
[2019-12-16 05:43] LABS: Atypical (Reactive) Lymph 5 % (0-2); Lymphocyte 1 % (20-51); Monocyte 2 % (0-9); Neutrophil 92 % (42-75); Neutrophil # 18.7 K/mm3 (1.3-6.0)
[2019-12-16 05:44] LABS: Anisocytosis 2+; Poikilocytosis 1+; Target Cells 1+
[2019-12-16 05:45] LABS: Platelet Estimate Normal (NORMAL)
[2019-12-16 05:50] LABS: Schistocytes 1+; Spherocyte 1+
[2019-12-16] MEDS: LEVOTHYROXINE SODIUM 50 MCG TABLET PO SCH (07:20)
[2019-12-16] MEDS: FLUTICASONE PROPIONATE 120 SPRAY INHALER NS SCH ×2 (09:41→21:15)
[2019-12-16] MEDS: prednisoLONE ACETATE 50 DROP BTL OP SCH (09:41)
[2019-12-16] MEDS: FLUOROMETHOLONE LEFTEYE SCH (09:41)
[2019-12-16] MEDS: CARVEDILOL 25 MG TABLET PO SCH ×2 (09:42→21:14)
[2019-12-16] MEDS: AMIODARONE HCL 200 MG TABLET PO SCH (09:42)
[2019-12-16] MEDS: POTASSIUM CHLORIDE 20 MEQ TABLET.SA PO SCH ×3 (09:45→21:22)
[2019-12-16] MEDS: buPROPion HCL 150 MG TAB.SR.24H PO SCH (09:45)
[2019-12-16] MEDS: LINEZOLID 600 MG TABLET PO SCH ×2 (09:45→21:14)
[2019-12-16] MEDS: predniSONE 20 MG TABLET PO SCH (09:48)
--- NOTE | 2019-12-16 12:46 | PN ---
Subjective - Date and Time Seen Date: 12/16/19 Time: 12:34 Subjective Narrative: Patient is coughing less and his WBC shows a downward trend today. CXR showed no acute infiltrate , left pleural thickening. Objective - Review of Systems Generalized/Overall Review: Denies: Weakness, Chills, Fever EENTM: Denies: Blurred Vision Respiratory: Reports: Cough, Shortness of Breath. Denies: Wheezing Cardiac: Denies: Chest Pain, Edema, Palpitations Abdominal: Denies: Nausea, Vomiting, Abdominal Pain Genitourinary Symptoms: Denies: Urgency, Frequency Musculoskeletal Complaints: Denies: Joint Pain Neurological: Denies: Headache Skin: Denies: Lesions, Rash - Vitals Vitals: Last Vital Signs Temp 36.5 C 12/16/19 06:00 Pulse 80 12/16/19 11:06 Resp 18 12/16/19 11:06 BP 168/61 H 12/16/19 06:00 Pulse Ox 94 12/16/19 10:56 - Abnormal Lab Findings Abnormal Lab Findings: Abnormal Lab Results 12/16/19 12/16/19 12/16/19 Range/Units 04:55 04:55 04:55 WBC 20.3 H (4.0-10.5) K/mm3 RBC 4.16 L (4.7-6.0) M/mm3 Hgb 13.0 L (13.5-18.0) gm/dL Hct 38.9 L (42.0-52.0) % MCH 31.3 H (27-31) pg RDW 17.1 H (11.5-14.0) % Neutrophils % (Manual) 92 H (42-75) % Lymphocytes % (Manual) 1 L (20-51) % Neutrophils # (Manual) 18.7 H (1.3-6.0) K/mm3 Lymphocytes # (Manual) 0.2 L (1.5-3.5) k/mm3 Atypic/Reactive Lymphs 5 H (0-2) % PT 17.6 H (9.1-10.7) Seconds INR (Anticoag Therapy) 1.82 H (0.92-1.08) INR Potassium 6.0 H (3.4-4.6) mmol/L BUN 58 H (6-23) mg/dL Creatinine 1.64 H (0.4-1.4) mg/dL Est GFR (Non-Af Amer) 44 L (60-130) mL/min BUN/Creatinine Ratio 35.4 H (9.0-21.6) Random Glucose 129 H (70-110) mg/dL - Exam Constitutional: Present: Alert, Oriented x3, Cooperative, Obese ENT Exam: Present: hearing grossly normal Neck: Present: supple. Absent: lymphadenopathy (R), lymphadenopathy (L) Respiratory: Present: decreased breath sounds, wheezing - occasional, No rales Cardiovascular/Chest: Present: regular rate, rhythm, no JVD, no murmur Abdomen: Present: Normal bowel sounds, soft, nontender, obese Extremity: Present: no calf tenderness, lower extremity edema Assessment/Plan Plan Narrative: Darren is feeling better. he says he still coughs but not the incessant kind that takes about 30 mins at times. His WBC is also down from 21.5 to 20.3. It could be that the linezolid is starting to kick in. He did have pleural effusion last time on the left . He denies exposure to asbestosis. Continue with current medications and present management. As per nurse he is complaining of LE edema. Cr has improved to 1.6 with lasix on hold. Will resart Lasix at half his original dose. - Problems/Diagnosis (1) Leukocytosis Problem: Acute (2) COPD exacerbation Problem: Acute (3) MRSA (methicillin resistant staphylococcus aureus) pneumonia Problem: Acute Qualifiers: Laterality: unspecified laterality Lung location: unspecified part of lung Qualified Code(s): J15.212 - Pneumonia due to Methicillin resistant Staphylococcus aureus (4) Acute respiratory failure with hypoxia Problem: Resolved
[2019-12-16] MEDS: FUROSEMIDE 40 MG TABLET PO SCH (14:11)
[2019-12-16] MEDS: ALLOPURINOL 300 MG TABLET PO SCH (17:37)
[2019-12-16] MEDS: WARFARIN SODIUM 2.5 MG TABLET PO SCH (17:37)
[2019-12-16] MEDS: SILVER SULFADIAZINE 25 APPL JAR TP SCH (17:45)
[2019-12-16] MEDS: BUDESONIDE 0.5 MG/2 ML VIAL.NEB IH SCH ×2 (18:12→22:12)
[2019-12-16] MEDS: TAMSULOSIN HCL 0.4 MG CAP.SR.24H PO SCH (20:00)
[2019-12-16] MEDS: ROSUVASTATIN CALCIUM 20 MG TABLET PO SCH (21:14)
[2019-12-16] MEDS: LORATADINE 10 MG TABLET PO SCH (21:14)
[2019-12-17] MEDS: ALBUTEROL SULFATE/IPRATROPIUM 3 ML NEBU IH SCH ×4 (02:08→14:15)
[2019-12-17] MEDS: BUDESONIDE 0.5 MG/2 ML VIAL.NEB IH SCH (06:10)
[2019-12-17 06:32] LABS: Prothrombin Time (Patient) 17.3 Seconds (9.1-10.7)
[2019-12-17 06:34] LABS: INR 1.79 INR (0.92-1.08)
[2019-12-17 06:40] LABS: Hematocrit 38.5 % (42.0-52.0); Hemoglobin 12.9 gm/dL (13.5-18.0); Mean Cell Volume 94.4 fl (78-100); Mean Corpuscular Hemoglobin 31.6 pg (27-31); Mean Corpuscular Hgb Conc 33.5 g/dl (32-36); Mean Platelet Volume 11.1 fl (8-11.3); Platelet Count 344 K/mm3 (150-450); Red Blood Count 4.08 M/mm3 (4.7-6.0); Red Cell Distribution Width 16.9 % (11.5-14.0); White Blood Count 21.3 K/mm3 (4.0-10.5)
[2019-12-17 06:49] LABS: Anion Gap 12.5 mmol/L (6.8-13.8); BUN/Creatinine Ratio 34.1 (9.0-21.6); Calcium * 8.3 mg/dL (7.9-10.9); Carbon Dioxide 26.7 mmol/L (24-32.6); Estimated Creat Clear 31.6; Potassium 5.2 mmol/L (3.4-4.6)
[2019-12-17 06:51] LABS: Total Cells Counted 100
[2019-12-17 07:18] LABS: Atypical (Reactive) Lymph 5 % (0-2); Lymphocyte 2 % (20-51); Monocyte 6 % (0-9); Neutrophil 87 % (42-75); Neutrophil # 18.5 K/mm3 (1.3-6.0); Platelet Estimate Normal (NORMAL); Target Cells 1+
[2019-12-17 07:19] LABS: Anisocytosis 2+; Spherocyte Trace
[2019-12-17 07:21] LABS: Ovalocytes 1+
[2019-12-17] MEDS: LEVOTHYROXINE SODIUM 50 MCG TABLET PO SCH (07:26)
[2019-12-17 07:27] LABS: Schistocytes 1+
[2019-12-17] MEDS ORDERED: predniSONE 20 MG TABLET PO SCH (09:00)
[2019-12-17] MEDS: prednisoLONE ACETATE 50 DROP BTL OP SCH (09:36)
[2019-12-17] MEDS: FLUOROMETHOLONE LEFTEYE SCH (09:36)
[2019-12-17] MEDS: AMIODARONE HCL 200 MG TABLET PO SCH (09:37)
[2019-12-17] MEDS: buPROPion HCL 150 MG TAB.SR.24H PO SCH (09:37)
[2019-12-17] MEDS: LINEZOLID 600 MG TABLET PO SCH (09:37)
[2019-12-17] MEDS: CARVEDILOL 25 MG TABLET PO SCH (09:37)
[2019-12-17] MEDS: FLUTICASONE PROPIONATE 120 SPRAY INHALER NS SCH (09:37)
[2019-12-17] MEDS: FUROSEMIDE 40 MG TABLET PO SCH (09:43)
[2019-12-17] MEDS: SILVER SULFADIAZINE 25 APPL JAR TP SCH (10:22)
--- NOTE | 2019-12-17 13:15 | DS ---
(1) Acute respiratory failure with hypoxia Problem: Resolved (2) MRSA (methicillin resistant staphylococcus aureus) pneumonia Problem: Acute Qualifiers: Laterality: unspecified laterality Lung location: unspecified part of lung Qualified Code(s): J15.212 - Pneumonia due to Methicillin resistant Staphylococcus aureus (3) COPD exacerbation Problem: Acute (4) Acute on chronic diastolic CHF (congestive heart failure) Problem: Acute Date of Discharge:: 12/17/19 Hospital Course: Draren is a 74 yo male that was admitted for acute respiratory failure and failed outpatient treatment of COPD exacerbation and acute on chronic diastolic CHF. He had been treated for COPD exacerbation with levaquin at home. He had not improved and was 79% on room air prior to hospitalization. He was admitted and placed on scheduled nebulizers, azithromycin, rocephin, and steroids. He had difficulty coughing up any phlegm and was started on mucinex and then mucomyst. He finally began to cough up sputum. Sputum ultimately grew MRSA and Linezolid was added to his antibiotics regimen. He was significantly weak and so PT was consulted. He had been initially placed on oxygen but was ultimately able to be weaned off of this. His cough gradually improved, he became stronger, and his voice hoarseness improved. His INR, renal function, and potassium were monitored daily and Coumadin, potassium, and lasix were adjusted accordingly. He is doing well enough today to be discharged to home. His WBC is elevated at 21k, but he has been on steroids and typically has elevated WBC due to prednisone. Procedures Performed: none Results and Findings: Lab Pending Results 12/10/19 12:30: WBC 10.3, RBC 4.09 L, Hgb 13.0 L, Hct 39.3 L, MCV 96.1, MCH 31.8 H, MCHC 33.1, RDW 17.6 H, Plt Count 220, MPV 12.0 H, Neutrophils % (Manual) 57, Band Neuts % (Manual) 6 H, Lymphocytes % (Manual) 9 L, Monocytes % (Manual) 13 H, Eosinophils % (Manual) 2, Neutrophils # (Manual) 5.9, Lymphocytes # (Manual) 0.9 L, Monocytes # (Manual) 1.3 H, Eosinophils # (Manual) 0.2, Atypic/Reactive Lymphs 13 H, Platelet Estimate Normal, Anisocytosis 2+, Microcytosis 1+, Target Cells 1+, Ovalocytes 1+, Schistocytes 1+ 12/10/19 12:30: Sodium 144 H, Plasma Sodium 144 H, Potassium 4.1 D, Chloride 106, Carbon Dioxide 30.4, Anion Gap 11.7, BUN 55 H, Creatinine 2.57 H D, Est GFR (Non-Af Amer) 26 L D, BUN/Creatinine Ratio 21.4, Random Glucose 124 H, Calcium 8.5, Calcium Adj for Albumin 8.6, Total Bilirubin 0.5, AST 28, ALT 23, Alkaline Phosphatase 89, Total Protein 6.5, Albumin 3.5 12/10/19 12:30: B-Natriuretic Peptide 3956 H 12/10/19 12:30: PT 60.2 H, INR (Anticoag Therapy) 6.54 H* 12/11/19 06:24: WBC 10.1, RBC 4.11 L, Hgb 12.8 L, Hct 39.0 L, MCV 94.9, MCH 31.1 H, MCHC 32.8, RDW 17.2 H, Plt Count 224, MPV 11.4 H, Immature Gran % (Auto) 0.50 H, Immature Gran # (Auto) 0.05 H, Neutrophils % 91.4 H, Lymphocytes % 6.1 L, Monocytes % 1.9, Eosinophils % 0.0, Basophils % 0.1, Nucleated RBC % 0.0, Neutrophils # 9.3 H, Lymphocytes # 0.62 L, Monocytes # 0.2, Eosinophils # 0.0, Absolute Basophils 0.0 12/11/19 06:24: Sodium 142, Plasma Sodium 143 H, Potassium 4.2, Chloride 105, Carbon Dioxide 26.8, Anion Gap 14.4 H, BUN 52 H, Creatinine 2.26 H, Est GFR (Non-Af Amer) 30 L, BUN/Creatinine Ratio 23.0 H, Random Glucose 149 H, Calcium 8.7, Calcium Adj for Albumin 8.9, Total Bilirubin 0.6, AST 25, ALT 24, Alkaline Phosphatase 83, B-Natriuretic Peptide 5224 H, Total Protein 6.6, Albumin 3.3 L 12/11/19 06:24: PT 47.5 H, INR (Anticoag Therapy) 5.11 H* 12/12/19 06:15: PT 52.9 H, INR (Anticoag Therapy) 5.71 H* 12/12/19 06:15: WBC 20.4 H D, RBC 4.08 L, Hgb 12.8 L, Hct 38.9 L, MCV 95.3, MCH 31.4 H, MCHC 32.9, RDW 17.3 H, Plt Count 251, MPV 12.0 H, Immature Gran % (Auto) 0.60 H, Immature Gran # (Auto) 0.13 H, Neutrophils % 87.3 H, Lymphocytes % 4.7 L, Monocytes % 7.3, Eosinophils % 0.0, Basophils % 0.1, Nucleated RBC % 0.1, Neutrophils # 17.8 H, Lymphocytes # 0.95 L, Monocytes # 1.5 H, Eosinophils # 0.0, Absolute Basophils 0.0 12/12/19 06:15: Sodium 140, Plasma Sodium 141, Potassium 4.4, Chloride 102, Carbon Dioxide 28.7, Anion Gap 13.7, BUN 58 H, Creatinine 2.10 H, Est GFR (Non- Af Amer) 33 L, BUN/Creatinine Ratio 27.6 H, Random Glucose 132 H, Calcium 8.7, Calcium Adj for Albumin 8.9, Total Bilirubin 0.4, AST 23, ALT 26, Alkaline Phosphatase 97, Total Protein 6.3, Albumin 3.4 12/13/19 06:15: PT 35.5 H, INR (Anticoag Therapy) 3.77 H 12/13/19 06:15: WBC 21.5 H, RBC 4.21 L, Hgb 13.2 L, Hct 39.6 L, MCV 94.1, MCH 31.4 H, MCHC 33.3, RDW 17.0 H, Plt Count 245, MPV 11.2, Neutrophils % (Manual) 89 H, Lymphocytes % (Manual) 9 L, Monocytes % (Manual) 2, Neutrophils # (Manual) 19.1 H, Lymphocytes # (Manual) 1.9, Monocytes # (Manual) 0.4, Platelet Estimate Normal, RBC Morphology Normal 12/13/19 06:15: Sodium 139, Plasma Sodium 139, Potassium 4.1, Chloride 101, Carbon Dioxide 27.5, Anion Gap 14.6 H, BUN 59 H, Creatinine 2.00 H, Est GFR (No n-Af Amer) 35 L, BUN/Creatinine Ratio 29.5 H, Random Glucose 111 H, Calcium 8.9, Calcium Adj for Albumin 9.0, Total Bilirubin 0.4, AST 24, ALT 28, Alkaline Phosphatase 100, Total Protein 6.3, Albumin 3.5 12/14/19 06:10: PT 22.6 H, INR (Anticoag Therapy) 2.36 H 12/14/19 06:10: Sodium 138, Plasma Sodium 138, Potassium 5.1 H D, Chloride 102, Carbon Dioxide 25.8, Anion Gap 15.3 H, BUN 57 H, Creatinine 1.79 H, Est GFR (Non-Af Amer) 40 L, BUN/Creatinine Ratio 31.8 H, Random Glucose 129 H, Calcium 8.7, Calcium Adj for Albumin 9.0, Total Bilirubin 0.4, AST 25, ALT 29, Alkaline Phosphatase 98, Total Protein 6.3, Albumin 3.2 L 12/14/19 09:12: WBC 18.8 H, RBC 4.14 L, Hgb 13.0 L, Hct 39.0 L, MCV 94.2, MCH 31.4 H, MCHC 33.3, RDW 17.2 H, Plt Count 269, MPV 11.2, Immature Gran % (Auto) 1.70 H, Immature Gran # (Auto) 0.32 H, Neutrophils % 85.8 H, Lymphocytes % 5.4 L, Monocytes % 6.9, Eosinophils % 0.0, Basophils % 0.2, Nucleated RBC % 0.1, Neutrophils # 16.1 H, Lymphocytes # 1.01 L, Monocytes # 1.3 H, Eosinophils # 0.0, Absolute Basophils 0.0 12/15/19 06:00: PT 18.5 H, INR (Anticoag Therapy) 1.92 H 12/15/19 06:00: WBC 21.5 H, RBC 4.16 L, Hgb 13.1 L, Hct 39.1 L, MCV 94.0, MCH 31.5 H, MCHC 33.5, RDW 17.1 H, Plt Count 297, MPV 10.8, Neutrophils % (Manual) 90 H, Lymphocytes % (Manual) 4 L, Monocytes % (Manual) 6, Neutrophils # (Manual) 19.4 H, Lymphocytes # (Manual) 0.9 L, Monocytes # (Manual) 1.3 H, Platelet Estimate Normal, RBC Morphology Normal 12/15/19 06:00: Sodium 139, Plasma Sodium 139, Potassium 5.0 H, Chloride 104, Carbon Dioxide 28.9, Anion Gap 11.1, BUN 59 H, Creatinine 1.71 H, Est GFR (Non- Af Amer) 42 L, BUN/Creatinine Ratio 34.5 H, Random Glucose 120 H, Calcium 8.8, Calcium Adj for Albumin 9.3, Total Bilirubin 0.4, AST 19, ALT 28, Alkaline Phosphatase 83, Total Protein 6.6, Albumin 3.0 L 12/16/19 04:55: PT 17.6 H, INR (Anticoag Therapy) 1.82 H 12/16/19 04:55: WBC 20.3 H, RBC 4.16 L, Hgb 13.0 L, Hct 38.9 L, MCV 93.5, MCH 31.3 H, MCHC 33.4, RDW 17.1 H, Plt Count 336, MPV 11.0, Neutrophils % (Manual) 92 H, Lymphocytes % (Manual) 1 L, Monocytes % (Manual) 2, Neutrophils # (Manual) 18.7 H, Lymphocytes # (Manual) 0.2 L, Monocytes # (Manual) 0.4, Atypic/Reactive Lymphs 5 H, Platelet Estimate Normal, Poikilocytosis 1+, Anisocytosis 2+, Spherocytes 1+, Target Cells 1+, Schistocytes 1+ 12/16/19 04:55: Sodium 136, Plasma Sodium 136, Potassium 6.0 H, Chloride 103, Carbon Dioxide 25.7, Anion Gap 13.3, BUN 58 H, Creatinine 1.64 H, Est GFR (Non- Af Amer) 44 L, BUN/Creatinine Ratio 35.4 H, Random Glucose 129 H, Calcium 8.9 12/16/19 04:55: Peripheral Blood Smear Smear sent to path. 12/17/19 06:00: PT 17.3 H, INR (Anticoag Therapy) 1.79 H 12/17/19 06:00: WBC 21.3 H, RBC 4.08 L, Hgb 12.9 L, Hct 38.5 L, MCV 94.4, MCH 31.6 H, MCHC 33.5, RDW 16.9 H, Plt Count 344, MPV 11.1, Neutrophils % (Manual) 87 H, Lymphocytes % (Manual) 2 L, Monocytes % (Manual) 6, Neutrophils # (Manual) 18.5 H, Lymphocytes # (Manual) 0.4 L, Monocytes # (Manual) 1.3 H, Nucleated RBCs 2.0 H, Atypic/Reactive Lymphs 5 H, Platelet Estimate Normal, Anisocytosis 2+, Spherocytes Trace, Target Cells 1+, Ovalocytes 1+, Schistocytes 1+ 12/17/19 06:00: Sodium 135, Plasma Sodium 135, Potassium 5.2 H, Chloride 101, Carbon Dioxide 26.7, Anion Gap 12.5, BUN 63 H, Creatinine 1.85 H, Est GFR (Non- Af Amer) 38 L, BUN/Creatinine Ratio 34.1 H, Random Glucose 123 H, Calcium 8.3, B-Natriuretic Peptide 2881 H Discharge Location: Home Disposition: Home self-care Condition: Fair Discharge Activity: Activity as tolerated Discharge Diet: Low salt Referrals: John Dutton DO [Primary Care Provider] - [facility] [Pharmacy] - 12/21/19 1:00 pm Problem Oriented Discharge Instructions to Patient/Family: Chronic Obstructive Pulmonary Disease Exacerbation, [id number] Additional Patient Instructions (free text): Pulmonary Rehab consult completed, patient ok with this if ordered by physician. They will call with an appointment time/schedule. Will be a TCM follow up appointment. Prescriptions (Any new or edited meds): predniSONE [Prednisone] 20 mg PO DAILY #10 tab Transmission Status: Pending to [place], [place] Linezolid [Zyvox] 600 mg PO Q12H #6 tab Transmission Status: Sent to [place], [place] Complete Home Medications List: Complete Home Medication List: Carvedilol [Coreg] 25 mg PO BID 06/12/13 Arformoterol Tartrate [Brovana] 15 mcg IH BID 11/21/13 Budesonide [Pulmicort] 0.5 mg IH BID 02/04/14 Nitroglycerin 0.4 mg SL [id number] PRN 02/09/14 Levalbuterol Tartrate [Xopenex Hfa] 2 puff IH Q6H PRN 07/22/14 Albuterol Sulfate 2.5 mg IH DAILY 09/23/14 Atorvastatin Calcium [Lipitor] 40 mg PO HS 09/23/14 Fluorometholone [FML Ophthalmic Suspension] 1 drp LEFTEYE DAILY 12/01/14 Acetaminophen 1,000 mg PO Q6H 04/03/18 fluticasone propionate 50 mcg/actuation nasal spray,suspension 2 spray [place] BID #15.8 g 05/01/18 amiodarone 200 mg tablet 200 mg PO DAILY 36 Days #36 tab 10/31/18 prednisolone acetate 1 % eye drops,suspension 1 drp OP DAILY 04/06/19 warfarin 2.5 mg tablet 2.5 mg PO SUMOTUTHFRSA tab 04/06/19 warfarin 5 mg tablet 5 mg PO WE tab 04/06/19 Allopurinol [Zyloprim] 150 mg PO DAILY 06/07/19 potassium chloride 10 mEq capsule,extended release 20 meq PO TID #540 cap 0 06/18/19 revefenacin 175 mcg/3 mL solution for nebulization 1 puff IH DAILY #90 ml 07/06/19 fexofenadine 180 mg tablet 180 mg PO DAILY 10/26/19 levothyroxine 50 mcg capsule 50 mcg PO DAILY 10/26/19 Arformoterol Tartrate [Brovana] 15 mcg INHALATION BID 12/10/19 bupropion HCl 150 mg 24 hr tablet, extended release 150 mg PO DAILY #90 tab 12/11/19 furosemide 80 mg tablet 80 mg PO DAILY #90 tab 12/11/19 tamsulosin 0.4 mg capsule 0.4 mg PO DAILY #90 cap 12/11/19 Linezolid [Zyvox] 600 mg PO Q12H #6 tab 12/17/19 Tamsulosin HCl [Flomax] 0.4 mg PO DAILY@1900 cap.sr.24h 12/17/19 buPROPion HCL [Wellbutrin Xl] 150 mg PO DAILY tab.sr.24h 12/17/19 guaiFENesin [Mucinex] 1,200 mg PO BID tablet.sa 12/17/19 predniSONE [Prednisone] 20 mg PO DAILY #10 tab 12/17/19
[2019-12-17 16:51] VITALS: BP 149/70
== END 2019-12-17 17:20 | disposition home or self-care (01) | DRG 177 ==
LOC: ER 11:56 → MS 11:56 → OBSVTOIN 14:26 → MS 14:45
PROVIDERS: ADMIT Family Medicine; ATTEND Family Medicine
DX: J15.212 Pneumonia due to Methicillin resistant Staphylococcus aureus; N18.3 Chronic kidney disease, stage 3 (moderate); Z95.2 Presence of prosthetic heart valve; J44.1 Chronic obstructive pulmonary disease with (acute) exacerbation; J44.9 Chronic obstructive pulmonary disease, unspecified; I50.33 Acute on chronic diastolic (congestive) heart failure; J96.01 Acute respiratory failure with hypoxia; Z95.0 Presence of cardiac pacemaker; D72.829 Elevated white blood cell count, unspecified; Z79.01 Long term (current) use of anticoagulants
CPT/HCPCS: 36415; 71020; 71046; 80048; 80053; 83519; 83880; 85007; 85025; 85610; 87070; 88321; 93005; 94640; 94660; 94664; 94760; 96374; 96375; 97110; 97116; 97161; 99285

== ENCOUNTER 2020-01-22 10:09 | Inpatient (IN) ==
[2020-01-22] MEDS ORDERED: PHYTONADIONE (VIT K1) 5 MG TABLET PO ONE (11:48)
[2020-01-22] MEDS ORDERED: FUROSEMIDE 10 MG/ML VIAL IV SCH (12:00)
[2020-01-22 12:39] LABS: Hematocrit 29.1 % (42.0-52.0); Hemoglobin 9.8 gm/dL (13.5-18.0); Mean Cell Volume 96.7 fl (78-100); Mean Corpuscular Hemoglobin 32.6 pg (27-31); Mean Corpuscular Hgb Conc 33.7 g/dl (32-36); Mean Platelet Volume 10.9 fl (8-11.3); Platelet Count 360 K/mm3 (150-450); Red Blood Count 3.01 M/mm3 (4.7-6.0); Red Cell Distribution Width 18.8 % (11.5-14.0); White Blood Count 18.2 K/mm3 (4.0-10.5)
[2020-01-22 12:43] LABS: Total Cells Counted 100
[2020-01-22 12:52] LABS: Albumin * 3.1 gm/dl (3.4-5.0); Anion Gap 16.3 mmol/L (6.8-13.8); BUN/Creatinine Ratio 18.3 (9.0-21.6); Bilirubin, Total 0.5 mg/dL (0.0-1.1); Ca. Corrected For Albumin 8.6 mg/dL (8.4-10.2); Calcium * 8.2 mg/dL (7.9-10.9); Potassium 4.3 mmol/L (3.4-4.6); Total Protein 6.3 gm/dL (6.2-8.2)
[2020-01-22] MEDS ORDERED: FLUTICASONE PROPIONATE 120 SPRAY INHALER NS PRN (13:16)
[2020-01-22 13:21] LABS: Lymphocyte 9 % (20-51); Monocyte 8 % (0-9); Neutrophil 83 % (42-75); Neutrophil # 15.1 K/mm3 (1.3-6.0)
[2020-01-22 13:22] LABS: Platelet Estimate Normal (NORMAL)
[2020-01-22 13:23] LABS: Anisocytosis 3+
[2020-01-22 13:25] LABS: Hypochromia 2+; Schistocytes 1+
[2020-01-22] MEDS ORDERED: ACETAMINOPHEN 500 MG TABLET PO SCH (13:30)
[2020-01-22] MEDS: 0.5 NORMAL SALINE 1,000 ML IV PRN (14:26)
[2020-01-22] MEDS: POTASSIUM CHLORIDE 20 MEQ TABLET.SA PO SCH (16:59)
[2020-01-22 17:10] LABS: Albumin * 2.9 gm/dl (3.4-5.0); Anion Gap 14.1 mmol/L (6.8-13.8); BUN/Creatinine Ratio 18.4 (9.0-21.6); Bilirubin, Total 0.4 mg/dL (0.0-1.1); Ca. Corrected For Albumin 8.4 mg/dL (8.4-10.2); Calcium * 7.8 mg/dL (7.9-10.9); Potassium 4.1 mmol/L (3.4-4.6)
[2020-01-22] MEDS: BUDESONIDE 0.5 MG/2 ML VIAL.NEB IH SCH (18:08)
[2020-01-22] MEDS: FORMOTEROL FUMARATE 20 MCG/2 ML VIAL IH SCH (18:12)
[2020-01-22] MEDS: TAMSULOSIN HCL 0.4 MG CAP.SR.24H PO SCH (19:12)
[2020-01-22] MEDS: ROSUVASTATIN CALCIUM 20 MG TABLET PO SCH (20:06)
[2020-01-22] MEDS: CARVEDILOL 25 MG TABLET PO SCH (20:06)
--- NOTE | 2020-01-22 23:01 | HP ---
Chief Complaint - Chief Complaint Date of Service: 01/22/20 Time of Service: 14:00 Chief Complaint: Edema, fatigue History of Present Illness: Darren is a 74 yo male with history of CKD stage III, COPD, Chronic Diastolic CHF, Coronary Artery Disease, mechanical heart vlave, and pacemaker. He was recently treated for MRSA pneumonia and COPD exacerbation. He reports his breathing is better and he is no longer coughing, but he does report fatigue and edema. He also reports unexplained bruising to hands and feet. He has been taking his lasix 80mg twice a day and metolazone once a week. He took his last metolazone yesterday. He reports urinating as usual. Medical History (Last Reviewed 01/22/20 @ 13:27 by Nelli Hurtado RN) Bilateral lower extremity edema Bunion of right foot joint was replaced by Dr. Kayode Roth Toe pain, bilateral 1st degree AV block Onset Date: Unknown Anxiety Onset Date: Unknown Asthma Onset Date: ~02/1989 CAD (coronary artery disease) Onset Date: Unknown CHF (congestive heart failure) Onset Date: Unknown COPD (chronic obstructive pulmonary disease) Onset Date: Unknown Depression Onset Date: Unknown Erectile dysfunction Onset Date: ~07/1972 Diagnosed with sterility. Fatigue Onset Date: Unknown Fuchs' endothelial dystrophy Onset Date: 12/30/17 Hearing loss Onset Date: Unknown right ear Hodgkin disease Onset Date: ~09/1980 Hyperlipidemia Onset Date: Unknown Hypothyroidism Onset Date: 03/04/10 Mechanical heart valve present Onset Date: 05/26/17 Aortic valve. Meniere disease Onset Date: Unknown Pacemaker Onset Date: Unknown Pseudophakia Onset Date: 12/30/17 Shortness of breath Onset Date: Unknown Sleep apnea Onset Date: Unknown Acute pharyngitis Onset Date: 05/21/13 Arm pain Onset Date: 11/23/13 Left arm/elbow. Breast disorder Onset Date: 06/07/12 Left breast fullness. Cough Onset Date: 09/20/14 Multifactorial. Hypoglycemia Onset Date: ~06/2001 Low back pain Onset Date: Unknown with radiculopathy Mononucleosis Onset Date: ~1988 Pericarditis Onset Date: ~1988 Acute, viral. 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 Jeremi Cha, [facility]. Left leg. History of splenectomy Onset Date: ~1969 With liver biopsy. History of toe surgery Onset Date: 10/11/08 History of tonsillectomy Onset Date: ~06/1952 S/P epidural steroid injection Onset Date: ~11/30/02 L4-5, L5-S1 Family History: Family History (Last Reviewed 01/22/20 @ 13:27 by Nelli Hurtado RN) Father Heart disease Hyperlipemia Hypertension CVA (cerebral vascular accident) Uncle CVA (cerebral vascular accident) Mother Diabetes Hyperlipemia Glaucoma Crohns disease Aunt Diabetes Social History: (Last Reviewed 01/22/20 @ 13:28 by Nelli Hurtado RN) Social History: Marital status: lives independently: No number of children: 1 current occupational status: retired Highest education level completed: Doctoral degree Service: No Tobacco: Smoking Status: Never smoker Alcohol: alcohol intake: current alcohol intake frequency: holiday/special occasion Substance Use: substance use type: does not use Dietary Habits: caffeine: Yes caffeine comment: current every day Type: tea Review Of Systems (GEN) - Review of Systems Generalized/Overall Review: Present: Weakness. Absent: Chills, Fever EENTM: Absent: Eye Pain, Blurred Vision, Nose Congestion Respiratory: Absent: Cough, Shortness of Breath, Wheezing Cardiac: Present: Edema. Absent: Chest Pain, Palpitations Abdominal: Absent: Nausea, Vomiting, Hematemesis Genitourinary: Absent: Burning, Urgency, Frequency Neurological: Absent: Anxiety, Numbness Skin: Present: Change in Color, Bruising Endocrine: Absent: Intolerance to Cold, Intolerance to Heat Immunizations: IMMUNIZATION HX Immunizations Up to Date Yes History of Influenza Vaccine Yes Hx Pneumococcal Vaccination Yes Allergies/Adverse Reactions: Allergies Allergy/AdvReac Type Severity Reaction Status Date / Time cat dander Allergy Other Verified 01/22/20 14:38 mold Allergy Other Verified 01/22/20 14:38 pollen extracts Allergy Other Verified 01/22/20 14:38 Home Medications: HOME MEDICATIONS Carvedilol [Coreg] 25 mg PO BID 06/12/13 [Last Taken 04/03/18 09:00] Arformoterol Tartrate [Brovana] 15 mcg IH BID 11/21/13 [Last Taken 04/03/18 09:00] Budesonide [Pulmicort] 0.5 mg IH BID 02/04/14 [Last Taken 04/03/18 09:00] Nitroglycerin 0.4 mg SL [id number] PRN 02/09/14 [Last Taken Unknown] Levalbuterol Tartrate [Xopenex Hfa] 2 puff IH Q6H PRN 07/22/14 [Last Taken 07/20/14 08:30] Albuterol Sulfate 2.5 mg IH 1400 09/23/14 [Last Taken 04/02/18 16:00] Atorvastatin Calcium [Lipitor] 40 mg PO HS 09/23/14 [Last Taken 04/02/18 21:00] Fluorometholone [FML Ophthalmic Suspension] 1 drp LEFTEYE DAILY 09/23/14 [Last Taken 04/03/18 08:00] Acetaminophen 1,000 mg PO Q6H PRN 04/03/18 [Last Taken Unknown] amiodarone 200 mg tablet 200 mg PO DAILY 36 Days #36 tab 10/31/18 [Last Taken Unknown] prednisolone acetate 1 % eye drops,suspension 1 drp RIGHTEYE DAILY 04/06/19 [Last Taken Unknown] warfarin 2.5 mg tablet 2.5 mg PO SUMOTUTHFRSA tab 04/06/19 [Last Taken Unknown] warfarin 5 mg tablet 5 mg PO WE tab 04/06/19 [Last Taken Unknown] revefenacin 175 mcg/3 mL solution for nebulization 1 puff IH DAILY #90 ml 07/06/19 [Last Taken Unknown] fexofenadine 180 mg tablet 180 mg PO HS 10/26/19 [Last Taken Unknown] bupropion HCl 150 mg 24 hr tablet, extended release 150 mg PO DAILY #90 tab 12/11/19 [Last Taken Unknown] furosemide 80 mg tablet 80 mg PO DAILY #90 tab 12/11/19 [Last Taken Unknown] Tamsulosin HCl [Flomax] 0.4 mg PO DAILY@1900 cap.sr.24h 12/17/19 [Last Taken Unknown] levothyroxine 50 mcg capsule 50 mcg PO DAILY #90 cap 12/26/19 [Last Taken Unknown] Allopurinol [Zyloprim] 150 mg PO 1500 01/22/20 [Last Taken Unknown] Fluticasone Propionate [Flonase] 1 spray NS BID PRN 01/22/20 [Last Taken Unknown] Potassium Chloride [K-Dur] 20 meq PO TID 01/22/20 [Last Taken Unknown] Exam - Exam Vital Signs: Vital Signs - Last Taken Temp 36.5 C 01/22/20 21:48 Pulse 80 01/22/20 21:48 Resp 14 01/22/20 21:48 BP 125/51 01/22/20 21:48 Pulse Ox 95 01/22/20 21:48 Constitutional: Present: Alert, Oriented x3, Cooperative, Obese ENT Exam: Present: hearing grossly normal Eye Exam: bilateral eye: normal inspection Respiratory: Present: lungs clear, normal breath sounds, no respiratory distress Cardiovascular/Chest: Present: regular rate, rhythm, other - mechanical valve click Abdomen: Present: Normal bowel sounds, soft, nontender, nondistended Extremity: Present: lower extremity edema - 3+ Skin Exam: Present: other - bruising to dorsum of bilateral hands and feet Appearance: Present: appropriate appearance, appropriate insight Eye contact: Present: cooperative, good eye contact, normal speech Thoughts: Present: normal thought pattern, no apparent hallucination Diagnostic Studies: Abnormal Lab Results 01/22/20 01/22/20 01/22/20 Range/Units 12:18 12:18 16:33 WBC 18.2 H (4.0-10.5) K/mm3 RBC 3.01 L (4.7-6.0) M/mm3 Hgb 9.8 L (13.5-18.0) gm/dL Hct 29.1 L (42.0-52.0) % MCH 32.6 H (27-31) pg RDW 18.8 H (11.5-14.0) % Neutrophils % (Manual) 83 H (42-75) % Lymphocytes % (Manual) 9 L (20-51) % Neutrophils # (Manual) 15.1 H (1.3-6.0) K/mm3 Monocytes # (Manual) 1.5 H (0.0-1.0) k/mm3 Anion Gap 16.3 H 14.1 H (6.8-13.8) mmol/L BUN 88 H 88 H (6-23) mg/dL Creatinine 4.80 H D 4.79 H (0.4-1.4) mg/dL Est GFR (Non-Af Amer) 13 L D 13 L (60-130) mL/min Random Glucose 135 H D (70-110) mg/dL Calcium 7.8 L (7.9-10.9) mg/dL B-Natriuretic Peptide 4071 H (5-350) pg/mL Total Protein 6.0 L (6.2-8.2) gm/dL Albumin 3.1 L 2.9 L (3.4-5.0) gm/dl Laboratory Results WBC 18.2 K/mm3 (4.0-10.5) H 01/22/20 12:18 RBC 3.01 M/mm3 (4.7-6.0) L 01/22/20 12:18 Hgb 9.8 gm/dL (13.5-18.0) L 01/22/20 12:18 Hct 29.1 % (42.0-52.0) L 01/22/20 12:18 MCV 96.7 fl (78-100) 01/22/20 12:18 MCH 32.6 pg (27-31) H 01/22/20 12:18 MCHC 33.7 g/dl (32-36) 01/22/20 12:18 RDW 18.8 % (11.5-14.0) H 01/22/20 12:18 Plt Count 360 K/mm3 (150-450) 01/22/20 12:18 MPV 10.9 fl (8-11.3) 01/22/20 12:18 Neutrophils % (Manual) 83 % (42-75) H 01/22/20 12:18 Lymphocytes % (Manual) 9 % (20-51) L 01/22/20 12:18 Monocytes % (Manual) 8 % (0-9) 01/22/20 12:18 Neutrophils # (Manual) 15.1 K/mm3 (1.3-6.0) H 01/22/20 12:18 Lymphocytes # (Manual) 1.6 k/mm3 (1.5-3.5) 01/22/20 12:18 Monocytes # (Manual) 1.5 k/mm3 (0.0-1.0) H 01/22/20 12:18 Nucleated RBCs 1.0 % (0-1) 01/22/20 12:18 Platelet Estimate Normal (NORMAL) 01/22/20 12:18 Hypochromasia 2+ 01/22/20 12:18 Anisocytosis 3+ 01/22/20 12:18 Ivanna Cells 1+ 01/22/20 12:18 Schistocytes 1+ 01/22/20 12:18 Sodium 139 mmol/L (132-142) 01/22/20 16:33 Plasma Sodium 140 mmol/L (130-142) 01/22/20 16:33 Potassium 4.1 mmol/L (3.4-4.6) 01/22/20 16:33 Chloride 101 mmol/L (97-106) 01/22/20 16:33 Carbon Dioxide 28.0 mmol/L (24-32.6) 01/22/20 16:33 Anion Gap 14.1 mmol/L (6.8-13.8) H 01/22/20 16:33 BUN 88 mg/dL (6-23) H 01/22/20 16:33 Creatinine 4.79 mg/dL (0.4-1.4) H 01/22/20 16:33 Est GFR (Non-Af Amer) 13 mL/min (60-130) L 01/22/20 16:33 BUN/Creatinine Ratio 18.4 (9.0-21.6) 01/22/20 16:33 Random Glucose 135 mg/dL (70-110) H D 01/22/20 16:33 Calcium 7.8 mg/dL (7.9-10.9) L 01/22/20 16:33 Calcium Adj for Albumin 8.4 mg/dL (8.4-10.2) 01/22/20 16:33 Total Bilirubin 0.4 mg/dL (0.0-1.1) 01/22/20 16:33 AST 25 U/L (0-48) 01/22/20 16:33 ALT 24 U/L (19-67) 01/22/20 16:33 Alkaline Phosphatase 86 U/L (50-170) 01/22/20 16:33 B-Natriuretic Peptide 4071 pg/mL (5-350) H 01/22/20 12:18 Total Protein 6.0 gm/dL (6.2-8.2) L 01/22/20 16:33 Albumin 2.9 gm/dl (3.4-5.0) L 01/22/20 16:33 Assessment/Plan - Narrative Narrative: Darren is a 74 yo male with: 1) Acute on chronic renal failure. His creatinine today is 4.8, this is significantly elevated from his baseline of 2.0. He has been taking lasix and metolazone prn but is still making normal urine for him. Will monitor urine output and plan to get renal US. I will give fluids but gently because he is also very edematous and has acute on chronic CHF. I will use lasix IV to diurese at the same time of gentle hydration. He has seemed to tolerate IV lasix in the past well without worsening kidney function. Expect 3-4 days to correct acute renal failure. If not improving he may need to consider dialysis to remove excess fluid if renal function is not improving. - Assessment/Plan (1) Acute on chronic renal failure Problem: Acute (2) Acute on chronic diastolic CHF (congestive heart failure) Problem: Acute
[2020-01-23] MEDS: 0.5 NORMAL SALINE 1,000 ML IV PRN ×2 (04:11→18:29)
[2020-01-23] MEDS: FORMOTEROL FUMARATE 20 MCG/2 ML VIAL IH SCH ×3 (06:01→18:05)
[2020-01-23] MEDS: BUDESONIDE 0.5 MG/2 ML VIAL.NEB IH SCH ×2 (06:01→18:05)
[2020-01-23 06:19] LABS: Mean Cell Volume 96.1 fl (78-100); Mean Corpuscular Hgb Conc 33.3 g/dl (32-36); Mean Platelet Volume 10.6 fl (8-11.3); Platelet Count 357 K/mm3 (150-450); Red Blood Count 2.81 M/mm3 (4.7-6.0); Red Cell Distribution Width 18.3 % (11.5-14.0); White Blood Count 17.6 K/mm3 (4.0-10.5)
[2020-01-23 06:21] LABS: Total Cells Counted 100
[2020-01-23 06:29] LABS: Eosinophil 1 % (0-3); Hypochromia 1+; Lymphocyte 10 % (20-51); Monocyte 10 % (0-9); Neutrophil 79 % (42-75); Neutrophil # 13.9 K/mm3 (1.3-6.0); Platelet Estimate Normal (NORMAL)
[2020-01-23 06:30] LABS: Anisocytosis 1+; Schistocytes Trace
[2020-01-23 06:32] LABS: Albumin * 2.8 gm/dl (3.4-5.0); Anion Gap 11.7 mmol/L (6.8-13.8); Bilirubin, Total 0.4 mg/dL (0.0-1.1); Ca. Corrected For Albumin 8.6 mg/dL (8.4-10.2); Carbon Dioxide 27.2 mmol/L (24-32.6); Phosphorus 5.5 mg/dL (2.2-4.2); Potassium 3.9 mmol/L (3.4-4.6); Total Protein 5.9 gm/dL (6.2-8.2)
[2020-01-23] MEDS: LEVOTHYROXINE SODIUM 50 MCG TABLET PO SCH (07:04)
[2020-01-23] MEDS: AMIODARONE HCL 200 MG TABLET PO SCH (08:10)
[2020-01-23] MEDS: buPROPion HCL 150 MG TAB.SR.24H PO SCH (08:11)
[2020-01-23] MEDS: POTASSIUM CHLORIDE 20 MEQ TABLET.SA PO SCH ×3 (08:11→17:27)
[2020-01-23] MEDS: CARVEDILOL 25 MG TABLET PO SCH ×2 (08:13→21:34)
[2020-01-23 08:14] LABS: Prothrombin Time (Patient) 46.7 Seconds (9.1-10.7)
[2020-01-23] MEDS ORDERED: FUROSEMIDE 10 MG/ML VIAL IV ONE (08:15)
[2020-01-23 08:16] LABS: INR 5.02 INR (0.92-1.08)
[2020-01-23] MEDS: FLUOROMETHOLONE LEFTEYE SCH (08:16)
[2020-01-23] MEDS: prednisoLONE ACETATE 50 DROP BTL OP SCH (08:17)
[2020-01-23] MEDS ORDERED: ALLOPURINOL 100 MG TABLET PO SCH (09:00)
[2020-01-23] MEDS: ALLOPURINOL 100 MG TABLET PO SCH (17:27)
[2020-01-23 17:42] LABS: Albumin * 2.7 gm/dl (3.4-5.0); Anion Gap 15.4 mmol/L (6.8-13.8); BUN/Creatinine Ratio 21.5 (9.0-21.6); Bilirubin, Total 0.4 mg/dL (0.0-1.1); Ca. Corrected For Albumin 8.4 mg/dL (8.4-10.2); Calcium * 7.7 mg/dL (7.9-10.9); Carbon Dioxide 25.5 mmol/L (24-32.6); Potassium 3.9 mmol/L (3.4-4.6); Total Protein 5.9 gm/dL (6.2-8.2)
[2020-01-23] MEDS: TAMSULOSIN HCL 0.4 MG CAP.SR.24H PO SCH (19:00)
[2020-01-23] MEDS: ROSUVASTATIN CALCIUM 20 MG TABLET PO SCH (21:34)
[2020-01-23] MEDS: ACETAMINOPHEN 500 MG TABLET PO PRN (22:21)
--- NOTE | 2020-01-23 23:49 | PN ---
Subjective - Date and Time Seen Date: 01/23/20 Time: 14:00 Subjective Narrative: Darren reports he continues to have significant swelling. No shortness of breath or cough. He is urinating. Renal US today shows no obstruction. Objective - Vitals Vitals: Last Vital Signs Temp 36.7 C 01/23/20 21:37 Pulse 79 01/23/20 23:18 Resp 18 01/23/20 23:18 BP 116/51 01/23/20 21:37 Pulse Ox 96 01/23/20 23:18 - Abnormal Lab Findings Abnormal Lab Findings: Abnormal Lab Results 01/23/20 01/23/20 01/23/20 Range/Units 06:00 06:15 06:15 WBC 17.6 H (4.0-10.5) K/mm3 RBC 2.81 L (4.7-6.0) M/mm3 Hgb 9.0 L (13.5-18.0) gm/dL Hct 27.0 L (42.0-52.0) % MCH 32.0 H (27-31) pg RDW 18.3 H (11.5-14.0) % Neutrophils % (Manual) 79 H (42-75) % Lymphocytes % (Manual) 10 L (20-51) % Monocytes % (Manual) 10 H (0-9) % Neutrophils # (Manual) 13.9 H (1.3-6.0) K/mm3 Monocytes # (Manual) 1.8 H (0.0-1.0) k/mm3 PT 46.7 H (9.1-10.7) Seconds INR (Anticoag Therapy) 5.02 H* (0.92-1.08) INR Anion Gap (6.8-13.8) mmol/L BUN 97 H (6-23) mg/dL Creatinine 4.41 H (0.4-1.4) mg/dL Est GFR (Non-Af Amer) 14 L (60-130) mL/min BUN/Creatinine Ratio 22.0 H (9.0-21.6) Random Glucose (70-110) mg/dL Calcium (7.9-10.9) mg/dL Phosphorus 5.5 H D (2.2-4.2) mg/dL ALT 15 L (19-67) U/L Total Protein 5.9 L (6.2-8.2) gm/dL Albumin 2.8 L (3.4-5.0) gm/dl 01/23/20 Range/Units 17:20 WBC (4.0-10.5) K/mm3 RBC (4.7-6.0) M/mm3 Hgb (13.5-18.0) gm/dL Hct (42.0-52.0) % MCH (27-31) pg RDW (11.5-14.0) % Neutrophils % (Manual) (42-75) % Lymphocytes % (Manual) (20-51) % Monocytes % (Manual) (0-9) % Neutrophils # (Manual) (1.3-6.0) K/mm3 Monocytes # (Manual) (0.0-1.0) k/mm3 PT (9.1-10.7) Seconds INR (Anticoag Therapy) (0.92-1.08) INR Anion Gap 15.4 H (6.8-13.8) mmol/L BUN 98 H (6-23) mg/dL Creatinine 4.56 H (0.4-1.4) mg/dL Est GFR (Non-Af Amer) 13 L (60-130) mL/min BUN/Creatinine Ratio (9.0-21.6) Random Glucose 126 H (70-110) mg/dL Calcium 7.7 L (7.9-10.9) mg/dL Phosphorus (2.2-4.2) mg/dL ALT (19-67) U/L Total Protein 5.9 L (6.2-8.2) gm/dL Albumin 2.7 L (3.4-5.0) gm/dl - Exam Constitutional: Present: Alert, Oriented x3, Cooperative ENT Exam: Present: hearing grossly normal Respiratory: Present: lungs clear, normal breath sounds, no respiratory distress Cardiovascular/Chest: Present: regular rate, rhythm, other - mechanical valve click Abdomen: Present: Normal bowel sounds, soft, nontender, nondistended Extremity: Present: lower extremity edema - 3+ Assessment/Plan Plan Narrative: Creatinine has improved from 4.8 to 4.4 today, will continue to monitor creatinine and give gentle hydration, will give lasix for edmea and acute on chronic chf prn and try and balance renal and heart failure exacerbations at the same time. No evidence of obstruction this is a renal disease. If not improving may need dialysis. - Problems/Diagnosis (1) Acute on chronic renal failure Problem: Acute Qualifiers: Chronic kidney disease stage: stage 3 (moderate) (2) Acute on chronic diastolic CHF (congestive heart failure) Problem: Acute
[2020-01-24] MEDS: FORMOTEROL FUMARATE 20 MCG/2 ML VIAL IH SCH ×3 (06:02→18:13)
[2020-01-24] MEDS: BUDESONIDE 0.5 MG/2 ML VIAL.NEB IH SCH ×3 (06:03→18:12)
[2020-01-24 06:28] LABS: INR 1.43 INR (0.92-1.08)
[2020-01-24] MEDS: LEVOTHYROXINE SODIUM 50 MCG TABLET PO SCH (06:58)
[2020-01-24] MEDS: AMIODARONE HCL 200 MG TABLET PO SCH (08:47)
[2020-01-24] MEDS: CARVEDILOL 25 MG TABLET PO SCH ×2 (08:48→21:08)
[2020-01-24] MEDS: FLUOROMETHOLONE LEFTEYE SCH (08:49)
[2020-01-24] MEDS: POTASSIUM CHLORIDE 20 MEQ TABLET.SA PO SCH ×3 (08:50→16:43)
[2020-01-24] MEDS: prednisoLONE ACETATE 50 DROP BTL OP SCH (08:51)
[2020-01-24] MEDS: buPROPion HCL 150 MG TAB.SR.24H PO SCH (08:52)
[2020-01-24] MEDS: 0.5 NORMAL SALINE 1,000 ML IV PRN (08:52)
[2020-01-24 08:53] LABS: Hemoglobin 9.1 gm/dL (13.5-18.0); Mean Cell Volume 96.8 fl (78-100); Mean Corpuscular Hemoglobin 32.6 pg (27-31); Mean Corpuscular Hgb Conc 33.7 g/dl (32-36); Mean Platelet Volume 11.6 fl (8-11.3); Platelet Count 378 K/mm3 (150-450); Red Blood Count 2.79 M/mm3 (4.7-6.0); Red Cell Distribution Width 18.4 % (11.5-14.0); White Blood Count 18.7 K/mm3 (4.0-10.5)
[2020-01-24 08:57] LABS: Total Cells Counted 100
[2020-01-24 09:02] LABS: Albumin * 2.8 gm/dl (3.4-5.0); BUN/Creatinine Ratio 23.3 (9.0-21.6); Bilirubin, Total 0.5 mg/dL (0.0-1.1); Ca. Corrected For Albumin 8.4 mg/dL (8.4-10.2); Calcium * 7.8 mg/dL (7.9-10.9); Carbon Dioxide 25.3 mmol/L (24-32.6); Potassium 4.3 mmol/L (3.4-4.6); Total Protein 5.3 gm/dL (6.2-8.2)
[2020-01-24 09:10] LABS: Eosinophil 3 % (0-3); Lymphocyte 8 % (20-51); Monocyte 11 % (0-9); Neutrophil 78 % (42-75); Neutrophil # 14.6 K/mm3 (1.3-6.0); Platelet Estimate Normal (NORMAL)
[2020-01-24 09:11] LABS: Hypochromia 1+; Schistocytes 1+
[2020-01-24] MEDS ORDERED: FUROSEMIDE 10 MG/ML VIAL IV ONE (09:13)
--- NOTE | 2020-01-24 13:56 | PN ---
Subjective - Date and Time Seen Date: 01/24/20 Time: 13:51 Subjective Narrative: Darren reports a little less edematous today. He reports generalized weakness. No fever, chills, shortness of breath, cough, nausea, or vomiting. Creatinine improved to 4.1 today, lytes stable. Objective - Vitals Vitals: Last Vital Signs Temp 36.6 C 01/24/20 10:27 Pulse 80 01/24/20 10:27 Resp 18 01/24/20 10:27 BP 124/53 01/24/20 10:27 Pulse Ox 90 L 01/24/20 10:27 - Abnormal Lab Findings Abnormal Lab Findings: Abnormal Lab Results 01/23/20 01/24/20 01/24/20 Range/Units 17:20 06:00 06:00 WBC 18.7 H (4.0-10.5) K/mm3 RBC 2.79 L (4.7-6.0) M/mm3 Hgb 9.1 L (13.5-18.0) gm/dL Hct 27.0 L (42.0-52.0) % MCH 32.6 H (27-31) pg RDW 18.4 H (11.5-14.0) % MPV 11.6 H (8-11.3) fl Neutrophils % (Manual) 78 H (42-75) % Lymphocytes % (Manual) 8 L (20-51) % Monocytes % (Manual) 11 H (0-9) % Neutrophils # (Manual) 14.6 H (1.3-6.0) K/mm3 Monocytes # (Manual) 2.1 H (0.0-1.0) k/mm3 PT (9.1-10.7) Seconds INR (Anticoag Therapy) (0.92-1.08) INR Anion Gap 15.4 H (6.8-13.8) mmol/L BUN 98 H 97 H (6-23) mg/dL Creatinine 4.56 H 4.17 H (0.4-1.4) mg/dL Est GFR (Non-Af Amer) 13 L 15 L (60-130) mL/min BUN/Creatinine Ratio 23.3 H (9.0-21.6) Random Glucose 126 H (70-110) mg/dL Calcium 7.7 L 7.8 L (7.9-10.9) mg/dL ALT 11 L (19-67) U/L Total Protein 5.9 L 5.3 L (6.2-8.2) gm/dL Albumin 2.7 L 2.8 L (3.4-5.0) gm/dl 01/24/20 Range/Units 06:17 WBC (4.0-10.5) K/mm3 RBC (4.7-6.0) M/mm3 Hgb (13.5-18.0) gm/dL Hct (42.0-52.0) % MCH (27-31) pg RDW (11.5-14.0) % MPV (8-11.3) fl Neutrophils % (Manual) (42-75) % Lymphocytes % (Manual) (20-51) % Monocytes % (Manual) (0-9) % Neutrophils # (Manual) (1.3-6.0) K/mm3 Monocytes # (Manual) (0.0-1.0) k/mm3 PT 14.0 H (9.1-10.7) Seconds INR (Anticoag Therapy) 1.43 H (0.92-1.08) INR Anion Gap (6.8-13.8) mmol/L BUN (6-23) mg/dL Creatinine (0.4-1.4) mg/dL Est GFR (Non-Af Amer) (60-130) mL/min BUN/Creatinine Ratio (9.0-21.6) Random Glucose (70-110) mg/dL Calcium (7.9-10.9) mg/dL ALT (19-67) U/L Total Protein (6.2-8.2) gm/dL Albumin (3.4-5.0) gm/dl - Exam Constitutional: Present: Alert, Oriented x3, Cooperative ENT Exam: Present: hearing grossly normal Respiratory: Present: lungs clear, normal breath sounds, no respiratory distress Cardiovascular/Chest: Present: regular rate, rhythm, other - mechanical valve click Abdomen: Present: Normal bowel sounds, soft, nontender, nondistended Extremity: Present: lower extremity edema - 3+ Skin Exam: Present: other - ecchymosis on dorsum of hands and feet Neurologic: Present: alert, normal mood/affect, oriented x 3 Appearance: Present: appropriate appearance, appropriate insight Eye contact: Present: cooperative, good eye contact, normal speech Assessment/Plan Plan Narrative: Labs are slowly improving. Creatinine down to 4.1. Edema is improved. Will continue to give lasix prn and gentle IV hydration. Walking the fine line between renal failure and heart failure. Will consult PT to help with mobilizing fluid and increasing strength. He will likely need skilled care for rehab and strengthening following discharge. Discharge may still be 2-4 days if he continues to improve. If he fails current treatment, may need transfer for nephrology cares and possible dialysis. - Problems/Diagnosis (1) Acute on chronic renal failure Problem: Acute Qualifiers: Chronic kidney disease stage: stage 3 (moderate) (2) Acute on chronic diastolic CHF (congestive heart failure) Problem: Acute
[2020-01-24 15:40] LABS: Albumin * 2.7 gm/dl (3.4-5.0); Anion Gap 13.7 mmol/L (6.8-13.8); BUN/Creatinine Ratio 23.7 (9.0-21.6); Bilirubin, Total 0.5 mg/dL (0.0-1.1); Ca. Corrected For Albumin 8.5 mg/dL (8.4-10.2); Calcium * 7.8 mg/dL (7.9-10.9); Potassium 3.7 mmol/L (3.4-4.6)
[2020-01-24] MEDS: ALLOPURINOL 100 MG TABLET PO SCH (16:43)
[2020-01-24] MEDS ORDERED: WARFARIN SODIUM 5 MG TABLET PO SCH (17:00)
[2020-01-24] MEDS: ALBUTEROL SULFATE 2.5 MG/0.5 ML VIAL.NEB IH PRN (17:51)
[2020-01-24] MEDS: TAMSULOSIN HCL 0.4 MG CAP.SR.24H PO SCH (19:08)
[2020-01-24] MEDS: ROSUVASTATIN CALCIUM 20 MG TABLET PO SCH (21:08)
[2020-01-25] MEDS: 0.5 NORMAL SALINE 1,000 ML IV PRN ×2 (00:06→15:08)
[2020-01-25] MEDS: ACETAMINOPHEN 500 MG TABLET PO PRN (00:15)
[2020-01-25] MEDS: FORMOTEROL FUMARATE 20 MCG/2 ML VIAL IH SCH ×2 (06:04→18:13)
[2020-01-25] MEDS: BUDESONIDE 0.5 MG/2 ML VIAL.NEB IH SCH ×2 (06:04→18:14)
[2020-01-25 06:25] LABS: Hematocrit 26.6 % (42.0-52.0); Hemoglobin 8.8 gm/dL (13.5-18.0); Mean Corpuscular Hemoglobin 31.8 pg (27-31); Mean Corpuscular Hgb Conc 33.1 g/dl (32-36); Mean Platelet Volume 10.5 fl (8-11.3); Platelet Count 360 K/mm3 (150-450); Red Blood Count 2.77 M/mm3 (4.7-6.0); White Blood Count 17.3 K/mm3 (4.0-10.5)
[2020-01-25 06:31] LABS: Total Cells Counted 100
[2020-01-25 06:42] LABS: Albumin * 2.5 gm/dl (3.4-5.0); Anion Gap 15.1 mmol/L (6.8-13.8); BUN/Creatinine Ratio 23.1 (9.0-21.6); Bilirubin, Total 0.6 mg/dL (0.0-1.1); Ca. Corrected For Albumin 9.1 mg/dL (8.4-10.2); Calcium * 8.2 mg/dL (7.9-10.9); Potassium 4.1 mmol/L (3.4-4.6); Total Protein 5.9 gm/dL (6.2-8.2)
[2020-01-25 06:47] LABS: Band 2 % (0-2.0); Eosinophil 1 % (0-3); Immature Granulocyte 4 (0-1); Lymphocyte 13 % (20-51); Monocyte 7 % (0-9); Neutrophil 73 % (42-75); Neutrophil # 12.6 K/mm3 (1.3-6.0)
[2020-01-25 06:48] LABS: Anisocytosis 1+; Hypochromia 1+
[2020-01-25 06:49] LABS: Schistocytes 1+
[2020-01-25] MEDS: LEVOTHYROXINE SODIUM 50 MCG TABLET PO SCH (07:21)
[2020-01-25 07:44] LABS: Prothrombin Time (Patient) 13.9 Seconds (9.1-10.7)
[2020-01-25 07:45] LABS: INR 1.42 INR (0.92-1.08)
[2020-01-25] MEDS: POTASSIUM CHLORIDE 20 MEQ TABLET.SA PO SCH ×3 (08:35→17:53)
[2020-01-25] MEDS: CARVEDILOL 25 MG TABLET PO SCH ×2 (08:35→20:05)
[2020-01-25] MEDS: AMIODARONE HCL 200 MG TABLET PO SCH (08:35)
[2020-01-25] MEDS: FLUOROMETHOLONE LEFTEYE SCH (08:35)
[2020-01-25] MEDS: buPROPion HCL 150 MG TAB.SR.24H PO SCH (08:35)
[2020-01-25] MEDS: prednisoLONE ACETATE 50 DROP BTL OP SCH (08:36)
[2020-01-25] MEDS ORDERED: FUROSEMIDE 10 MG/ML VIAL IV ONE (08:40)
[2020-01-25] MEDS: WARFARIN SODIUM 2.5 MG TABLET PO SCH (17:51)
[2020-01-25] MEDS: ALLOPURINOL 100 MG TABLET PO SCH (17:51)
[2020-01-25 18:31] LABS: Albumin * 2.9 gm/dl (3.4-5.0); Anion Gap 13.9 mmol/L (6.8-13.8); BUN/Creatinine Ratio 23.5 (9.0-21.6); Bilirubin, Total 0.6 mg/dL (0.0-1.1); Ca. Corrected For Albumin 8.7 mg/dL (8.4-10.2); Calcium * 8.1 mg/dL (7.9-10.9); Carbon Dioxide 24.4 mmol/L (24-32.6); Potassium 4.3 mmol/L (3.4-4.6); Total Protein 6.3 gm/dL (6.2-8.2)
[2020-01-25] MEDS: TAMSULOSIN HCL 0.4 MG CAP.SR.24H PO SCH (20:05)
[2020-01-25] MEDS: ROSUVASTATIN CALCIUM 20 MG TABLET PO SCH (20:06)
--- NOTE | 2020-01-25 23:40 | PN ---
Subjective - Date and Time Seen Date: 01/25/20 Time: 12:30 Subjective Narrative: He reports feeling a little stronger. Still having edema. No shortness of breath. He worked with PT today and has been walking in woods. Creatinine stable at 4.1. Objective - Vitals Vitals: Last Vital Signs Temp 36.4 C 01/25/20 18:28 Pulse 79 01/25/20 20:05 Resp 20 01/25/20 18:28 BP 131/56 01/25/20 20:05 Pulse Ox 91 L 01/25/20 18:28 - Abnormal Lab Findings Abnormal Lab Findings: Abnormal Lab Results 01/25/20 01/25/20 01/25/20 Range/Units 06:00 06:20 06:20 WBC 17.3 H (4.0-10.5) K/mm3 RBC 2.77 L (4.7-6.0) M/mm3 Hgb 8.8 L (13.5-18.0) gm/dL Hct 26.6 L (42.0-52.0) % MCH 31.8 H (27-31) pg RDW 18.0 H (11.5-14.0) % Lymphocytes % (Manual) 13 L (20-51) % Immature Granulocytes 4 H (0-1) Neutrophils # (Manual) 12.6 H (1.3-6.0) K/mm3 Monocytes # (Manual) 1.2 H (0.0-1.0) k/mm3 Nucleated RBCs 2.0 H (0-1) % PT 13.9 H (9.1-10.7) Seconds INR (Anticoag Therapy) 1.42 H (0.92-1.08) INR Anion Gap 15.1 H (6.8-13.8) mmol/L BUN 96 H (6-23) mg/dL Creatinine 4.15 H (0.4-1.4) mg/dL Est GFR (Non-Af Amer) 15 L (60-130) mL/min BUN/Creatinine Ratio 23.1 H (9.0-21.6) Random Glucose (70-110) mg/dL Total Protein 5.9 L (6.2-8.2) gm/dL Albumin 2.5 L (3.4-5.0) gm/dl 01/25/20 Range/Units 18:15 WBC (4.0-10.5) K/mm3 RBC (4.7-6.0) M/mm3 Hgb (13.5-18.0) gm/dL Hct (42.0-52.0) % MCH (27-31) pg RDW (11.5-14.0) % Lymphocytes % (Manual) (20-51) % Immature Granulocytes (0-1) Neutrophils # (Manual) (1.3-6.0) K/mm3 Monocytes # (Manual) (0.0-1.0) k/mm3 Nucleated RBCs (0-1) % PT (9.1-10.7) Seconds INR (Anticoag Therapy) (0.92-1.08) INR Anion Gap 13.9 H (6.8-13.8) mmol/L BUN 97 H (6-23) mg/dL Creatinine 4.13 H (0.4-1.4) mg/dL Est GFR (Non-Af Amer) 15 L (60-130) mL/min BUN/Creatinine Ratio 23.5 H (9.0-21.6) Random Glucose 128 H (70-110) mg/dL Total Protein (6.2-8.2) gm/dL Albumin 2.9 L (3.4-5.0) gm/dl - Exam Constitutional: Present: Alert, Oriented x3, Cooperative ENT Exam: Present: hearing grossly normal Respiratory: Present: lungs clear, normal breath sounds, no respiratory distress Cardiovascular/Chest: Present: regular rate, rhythm, other - mechanical click Extremity: Present: lower extremity edema - 3+ Assessment/Plan Plan Narrative: Creatinine is slightly improved and stable. Continue gentle hydration and IV lasix 40mg prn edema. working on strength with PT. Plan to discharge to [facility] on Tuesday. Creatinine may have improved to his new baseline and may need outpatient follow up with nephrology as consideration for dialysis may be needed in the near future. Electrolytes are controlled and it does not appear that dialysis is needed at this time unless electrolytes become uncontrolled or begin having difficulty controlling fluid balance. - Problems/Diagnosis (1) Acute on chronic renal failure Problem: Acute Qualifiers: Chronic kidney disease stage: stage 3 (moderate) (2) Acute on chronic diastolic CHF (congestive heart failure) Problem: Acute
[2020-01-26] MEDS: 0.5 NORMAL SALINE 1,000 ML IV PRN ×2 (05:29→20:30)
[2020-01-26] MEDS: BUDESONIDE 0.5 MG/2 ML VIAL.NEB IH SCH ×2 (06:06→18:07)
[2020-01-26] MEDS: FORMOTEROL FUMARATE 20 MCG/2 ML VIAL IH SCH ×2 (06:06→18:07)
[2020-01-26 06:33] LABS: Hematocrit 27.1 % (42.0-52.0); Mean Cell Volume 95.8 fl (78-100); Mean Corpuscular Hemoglobin 31.8 pg (27-31); Mean Corpuscular Hgb Conc 33.2 g/dl (32-36); Mean Platelet Volume 11.1 fl (8-11.3); Platelet Count 374 K/mm3 (150-450); Red Blood Count 2.83 M/mm3 (4.7-6.0); Red Cell Distribution Width 18.1 % (11.5-14.0); White Blood Count 16.1 K/mm3 (4.0-10.5)
[2020-01-26 06:36] LABS: Prothrombin Time (Patient) 16.9 Seconds (9.1-10.7)
[2020-01-26 06:37] LABS: Total Cells Counted 100
[2020-01-26 06:38] LABS: INR 1.74 INR (0.92-1.08)
[2020-01-26 06:42] LABS: Albumin * 2.7 gm/dl (3.4-5.0); Anion Gap 12.5 mmol/L (6.8-13.8); Atypical (Reactive) Lymph 7 % (0-2); Bilirubin, Total 0.6 mg/dL (0.0-1.1); Ca. Corrected For Albumin 8.6 mg/dL (8.4-10.2); Calcium * 7.9 mg/dL (7.9-10.9); Eosinophil 1 % (0-3); Lymphocyte 14 % (20-51); Monocyte 4 % (0-9); Neutrophil 74 % (42-75); Neutrophil # 11.9 K/mm3 (1.3-6.0); Platelet Estimate Normal (NORMAL); Potassium 4.5 mmol/L (3.4-4.6)
[2020-01-26 06:44] LABS: Anisocytosis 1+; Hypochromia 1+; Schistocytes 1+
[2020-01-26 06:52] LABS: BUN/Creatinine Ratio 25.4 (9.0-21.6)
[2020-01-26] MEDS: LEVOTHYROXINE SODIUM 50 MCG TABLET PO SCH (07:09)
[2020-01-26] MEDS: CARVEDILOL 25 MG TABLET PO SCH ×2 (09:16→20:29)
[2020-01-26] MEDS: buPROPion HCL 150 MG TAB.SR.24H PO SCH (09:16)
[2020-01-26] MEDS: AMIODARONE HCL 200 MG TABLET PO SCH (09:16)
[2020-01-26] MEDS: POTASSIUM CHLORIDE 20 MEQ TABLET.SA PO SCH ×3 (09:16→17:02)
[2020-01-26] MEDS: FLUOROMETHOLONE LEFTEYE SCH (09:17)
[2020-01-26] MEDS: prednisoLONE ACETATE 50 DROP BTL OP SCH (09:19)
[2020-01-26] MEDS ORDERED: FUROSEMIDE 10 MG/ML VIAL IV ONE (11:47)
[2020-01-26] MEDS: WARFARIN SODIUM 2.5 MG TABLET PO SCH (17:02)
[2020-01-26] MEDS: ALLOPURINOL 100 MG TABLET PO SCH (17:02)
[2020-01-26] MEDS: TAMSULOSIN HCL 0.4 MG CAP.SR.24H PO SCH (19:30)
[2020-01-26] MEDS: ROSUVASTATIN CALCIUM 20 MG TABLET PO SCH (20:29)
--- NOTE | 2020-01-26 21:05 | PN ---
Subjective - Date and Time Seen Date: 01/26/20 Time: 08:15 Subjective Narrative: Swelling continues to improve. VSS, afebrile. He denies cough. Still endorses weakness and fatigue. Creatinine down to 3.8 Objective - Review of Systems Generalized/Overall Review: Reports: Weakness EENTM: Reports: No Symptoms Reported Cardiac: Reports: Edema. Denies: Chest Pain Abdominal: Reports: No Symptoms Reported - Vitals Vitals: Last Vital Signs Temp 36.5 C 01/26/20 18:47 Pulse 80 01/26/20 20:29 Resp 18 01/26/20 18:47 BP 124/60 01/26/20 20:29 Pulse Ox 94 01/26/20 18:47 - Abnormal Lab Findings Abnormal Lab Findings: Abnormal Lab Results 01/26/20 01/26/20 01/26/20 Range/Units 06:22 06:22 06:22 WBC 16.1 H (4.0-10.5) K/mm3 RBC 2.83 L (4.7-6.0) M/mm3 Hgb 9.0 L (13.5-18.0) gm/dL Hct 27.1 L (42.0-52.0) % MCH 31.8 H (27-31) pg RDW 18.1 H (11.5-14.0) % Lymphocytes % (Manual) 14 L (20-51) % Neutrophils # (Manual) 11.9 H (1.3-6.0) K/mm3 Nucleated RBCs 5.0 H (0-1) % Atypic/Reactive Lymphs 7 H (0-2) % PT 16.9 H (9.1-10.7) Seconds INR (Anticoag Therapy) 1.74 H (0.92-1.08) INR BUN 99 H (6-23) mg/dL Creatinine 3.89 H (0.4-1.4) mg/dL Est GFR (Non-Af Amer) 16 L (60-130) mL/min BUN/Creatinine Ratio 25.4 H (9.0-21.6) Total Protein 6.0 L (6.2-8.2) gm/dL Albumin 2.7 L (3.4-5.0) gm/dl - Exam Constitutional: Present: Alert, Oriented x3 Respiratory: Present: no respiratory distress, decreased breath sounds Cardiovascular/Chest: Present: regular rate, rhythm, other, edema Assessment/Plan Plan Narrative: Pt is comfortable, swelling is improving. Creatinine is slowly improving. Continue to monitor with gentle diuresis. VSS and pt afebrile. Nurses to call with any questions or concenrs. - Problems/Diagnosis (1) Acute on chronic renal failure Problem: Acute Qualifiers: Chronic kidney disease stage: stage 3 (moderate) (2) Acute on chronic diastolic CHF (congestive heart failure) Problem: Acute
[2020-01-27] MEDS: FORMOTEROL FUMARATE 20 MCG/2 ML VIAL IH SCH ×2 (06:06→18:07)
[2020-01-27] MEDS: BUDESONIDE 0.5 MG/2 ML VIAL.NEB IH SCH ×2 (06:07→18:07)
[2020-01-27 06:59] LABS: Hemoglobin 9.1 gm/dL (13.5-18.0); Mean Cell Volume 96.2 fl (78-100); Mean Corpuscular Hemoglobin 31.3 pg (27-31); Mean Corpuscular Hgb Conc 32.5 g/dl (32-36); Platelet Count 380 K/mm3 (150-450); Red Blood Count 2.91 M/mm3 (4.7-6.0); Red Cell Distribution Width 18.4 % (11.5-14.0); White Blood Count 15.4 K/mm3 (4.0-10.5)
[2020-01-27 07:17] LABS: Prothrombin Time (Patient) 18.2 Seconds (9.1-10.7)
[2020-01-27] MEDS: LEVOTHYROXINE SODIUM 50 MCG TABLET PO SCH (07:20)
[2020-01-27 07:25] LABS: Anion Gap 15.1 mmol/L (6.8-13.8); BUN/Creatinine Ratio 26.2 (9.0-21.6); Calcium * 8.3 mg/dL (7.9-10.9); Carbon Dioxide 23.7 mmol/L (24-32.6); Estimated Creat Clear 15.6; Potassium 4.8 mmol/L (3.4-4.6)
[2020-01-27 07:37] LABS: INR 1.88 INR (0.92-1.08)
[2020-01-27 07:38] LABS: Total Cells Counted 100
[2020-01-27 08:31] LABS: Band 7 % (0-2.0); Eosinophil 1 % (0-3); Lymphocyte 13 % (20-51); Monocyte 13 % (0-9); Neutrophil 66 % (42-75); Neutrophil # 10.2 K/mm3 (1.3-6.0); Platelet Estimate Normal (NORMAL)
[2020-01-27 08:34] LABS: Anisocytosis 1+; Hypochromia 2+; Target Cells 1+
[2020-01-27] MEDS: CARVEDILOL 25 MG TABLET PO SCH ×2 (09:04→20:02)
[2020-01-27] MEDS: AMIODARONE HCL 200 MG TABLET PO SCH (09:04)
[2020-01-27] MEDS: POTASSIUM CHLORIDE 20 MEQ TABLET.SA PO SCH ×3 (09:04→17:20)
[2020-01-27] MEDS: buPROPion HCL 150 MG TAB.SR.24H PO SCH (09:04)
[2020-01-27] MEDS: FLUOROMETHOLONE LEFTEYE SCH (09:04)
[2020-01-27] MEDS: prednisoLONE ACETATE 50 DROP BTL OP SCH (09:05)
[2020-01-27] MEDS: 0.5 NORMAL SALINE 1,000 ML IV PRN (11:14)
[2020-01-27] MEDS ORDERED: FUROSEMIDE 10 MG/ML VIAL IV ONE (12:07)
[2020-01-27] MEDS: WARFARIN SODIUM 2.5 MG TABLET PO SCH (17:19)
[2020-01-27] MEDS: ALLOPURINOL 100 MG TABLET PO SCH (17:20)
[2020-01-27] MEDS: TAMSULOSIN HCL 0.4 MG CAP.SR.24H PO SCH (19:30)
--- NOTE | 2020-01-27 19:31 | PN ---
Subjective - Date and Time Seen Date: 01/27/20 Time: 12:14 Subjective Narrative: Patient feeling better today than he was yesterday. Breathing is improving. Still has significant swelling in his lower extremities though. Objective - Review of Systems Generalized/Overall Review: Reports: Weakness, Fatigue EENTM: Reports: No Symptoms Reported Respiratory: Reports: Shortness of Breath. Denies: Cough Cardiac: Reports: Edema. Denies: Chest Pain Abdominal: Reports: No Symptoms Reported Genitourinary Symptoms: Reports: No Symptoms Reported Musculoskeletal Complaints: Reports: No Symptoms Reported Neurological: Reports: No Symptoms Reported Skin: Reports: No Symptoms Reported - Vitals Vitals: Last Vital Signs Temp 36.4 C 01/27/20 18:07 Pulse 78 01/27/20 18:17 Resp 18 01/27/20 18:17 BP 120/54 01/27/20 18:07 Pulse Ox 94 01/27/20 18:07 - Abnormal Lab Findings Abnormal Lab Findings: Abnormal Lab Results 01/27/20 01/27/20 01/27/20 Range/Units 06:50 06:50 06:50 WBC 15.4 H (4.0-10.5) K/mm3 RBC 2.91 L (4.7-6.0) M/mm3 Hgb 9.1 L (13.5-18.0) gm/dL Hct 28.0 L (42.0-52.0) % MCH 31.3 H (27-31) pg RDW 18.4 H (11.5-14.0) % Band Neuts % (Manual) 7 H (0-2.0) % Lymphocytes % (Manual) 13 L (20-51) % Monocytes % (Manual) 13 H (0-9) % Neutrophils # (Manual) 10.2 H (1.3-6.0) K/mm3 Monocytes # (Manual) 2.0 H (0.0-1.0) k/mm3 Nucleated RBCs 16.0 H (0-1) % PT 18.2 H (9.1-10.7) Seconds INR (Anticoag Therapy) 1.88 H (0.92-1.08) INR Potassium 4.8 H (3.4-4.6) mmol/L Carbon Dioxide 23.7 L (24-32.6) mmol/L Anion Gap 15.1 H (6.8-13.8) mmol/L BUN 99 H (6-23) mg/dL Creatinine 3.78 H (0.4-1.4) mg/dL Est GFR (Non-Af Amer) 17 L (60-130) mL/min BUN/Creatinine Ratio 26.2 H (9.0-21.6) - Exam Constitutional: Present: Alert, Oriented x3, Cooperative, Morbidly obese Cardiovascular/Chest: Present: regular rate, rhythm, other - Distant heart sounds, edema Abdomen: Present: Normal bowel sounds, soft, nontender Eye contact: Present: cooperative, good eye contact Thoughts: Present: normal thought pattern, normal mood /affect Assessment/Plan Plan Narrative: Swelling continues to be 2-3+ pitting edema just below his knees bilaterally. Creatinine improved to 3.7 today but his weight gain has increased to 7 kg since admission. Patient dealing with cardiorenal syndrome, will stop the fluid that he was getting and give him a one-time dose of 80 mg IV Lasix. Hopefully with points of fluid off over leave some congestion on his heart which might actually improve perfusion to the kidneys and and hopefully improve kidney function as well. Advised patient to keep his fluid at roughly 60 ounces at a time. Repeat CMP in the morning. Patient's INR slowly improving, up to 1.8 today. Continue to monitor and continue warfarin as dosed. Patient is pleasant today, easy to talk to. States understanding to the situation he is in, will continue to monitor. Continue chronic medications Nurse to call with any questions or concerns. - Problems/Diagnosis (1) Acute on chronic renal failure Problem: Acute Qualifiers: Chronic kidney disease stage: stage 3 (moderate) (2) Acute on chronic diastolic CHF (congestive heart failure) Problem: Acute (3) Elevated INR Problem: Acute
[2020-01-27] MEDS: ROSUVASTATIN CALCIUM 20 MG TABLET PO SCH (20:02)
[2020-01-28] MEDS: FORMOTEROL FUMARATE 20 MCG/2 ML VIAL IH SCH ×2 (06:05→18:13)
[2020-01-28] MEDS: BUDESONIDE 0.5 MG/2 ML VIAL.NEB IH SCH ×2 (06:05→18:08)
[2020-01-28 06:51] LABS: Hematocrit 27.8 % (42.0-52.0); Hemoglobin 9.2 gm/dL (13.5-18.0); Mean Cell Volume 95.9 fl (78-100); Mean Corpuscular Hemoglobin 31.7 pg (27-31); Mean Corpuscular Hgb Conc 33.1 g/dl (32-36); Mean Platelet Volume 10.8 fl (8-11.3); Platelet Count 385 K/mm3 (150-450); Red Cell Distribution Width 18.3 % (11.5-14.0); White Blood Count 15.2 K/mm3 (4.0-10.5)
[2020-01-28 06:54] LABS: Total Cells Counted 100
[2020-01-28 07:01] LABS: Prothrombin Time (Patient) 18.1 Seconds (9.1-10.7)
[2020-01-28 07:02] LABS: INR 1.87 INR (0.92-1.08)
[2020-01-28 07:08] LABS: Albumin * 2.7 gm/dl (3.4-5.0); Anion Gap 14.7 mmol/L (6.8-13.8); BUN/Creatinine Ratio 28.4 (9.0-21.6); Bilirubin, Total 0.7 mg/dL (0.0-1.1); Ca. Corrected For Albumin 9.2 mg/dL (8.4-10.2); Calcium * 8.5 mg/dL (7.9-10.9); Potassium 4.7 mmol/L (3.4-4.6)
[2020-01-28] MEDS: LEVOTHYROXINE SODIUM 50 MCG TABLET PO SCH (07:23)
[2020-01-28 07:25] LABS: Eosinophil 1 % (0-3); Lymphocyte 20 % (20-51); Monocyte 10 % (0-9); Neutrophil 69 % (42-75); Neutrophil # 10.5 K/mm3 (1.3-6.0); Platelet Estimate Normal (NORMAL)
[2020-01-28 07:26] LABS: Anisocytosis 1+; Hypochromia 1+; Target Cells 1+
[2020-01-28] MEDS: FLUOROMETHOLONE LEFTEYE SCH (09:18)
[2020-01-28] MEDS: buPROPion HCL 150 MG TAB.SR.24H PO SCH (09:18)
[2020-01-28] MEDS: AMIODARONE HCL 200 MG TABLET PO SCH (09:18)
[2020-01-28] MEDS: CARVEDILOL 25 MG TABLET PO SCH ×2 (09:18→20:21)
[2020-01-28] MEDS: POTASSIUM CHLORIDE 20 MEQ TABLET.SA PO SCH (09:19)
[2020-01-28] MEDS: prednisoLONE ACETATE 50 DROP BTL OP SCH (09:19)
[2020-01-28] MEDS ORDERED: FUROSEMIDE 10 MG/ML VIAL IV ONE ×2 (10:30→19:19)
[2020-01-28] MEDS: SEVELAMER HCL 800 MG TABLET PO SCH ×3 (11:37→16:30)
[2020-01-28] MEDS: ALLOPURINOL 100 MG TABLET PO SCH (16:30)
[2020-01-28] MEDS: WARFARIN SODIUM 2.5 MG TABLET PO SCH (16:30)
[2020-01-28 18:01] LABS: Albumin * 2.7 gm/dl (3.4-5.0); Anion Gap 15.6 mmol/L (6.8-13.8); BUN/Creatinine Ratio 29.8 (9.0-21.6); Bilirubin, Total 0.8 mg/dL (0.0-1.1); Ca. Corrected For Albumin 8.9 mg/dL (8.4-10.2); Calcium * 8.2 mg/dL (7.9-10.9); Carbon Dioxide 25.5 mmol/L (24-32.6); Potassium 4.1 mmol/L (3.4-4.6); Total Protein 6.3 gm/dL (6.2-8.2)
[2020-01-28] MEDS: ALBUTEROL SULFATE 2.5 MG/0.5 ML VIAL.NEB IH PRN (18:08)
--- NOTE | 2020-01-28 19:18 | PN ---
Subjective - Date and Time Seen Date: 01/28/20 Time: 12:30 Subjective Narrative: Darren reports still very edematous. The lasix he had yesterday seemed to work better than other doses he has had. He had 80mg IV lasix yesterday instead of the usual 40mg IV. He does not feel as short of breath today. Phosphorus 5.1 and potassium 4.7 today. Discussed with his patient resource specialist Dr. Prather he was ok with current plan recommended medication to help with phosphorus. Objective - Vitals Vitals: Last Vital Signs Temp 36.6 C 01/28/20 18:14 Pulse 80 01/28/20 18:18 Resp 18 01/28/20 18:18 BP 124/54 01/28/20 18:14 Pulse Ox 94 01/28/20 18:14 - Abnormal Lab Findings Abnormal Lab Findings: Abnormal Lab Results 01/28/20 01/28/20 01/28/20 Range/Units 05:40 05:40 05:40 WBC 15.2 H (4.0-10.5) K/mm3 RBC 2.90 L (4.7-6.0) M/mm3 Hgb 9.2 L (13.5-18.0) gm/dL Hct 27.8 L (42.0-52.0) % MCH 31.7 H (27-31) pg RDW 18.3 H (11.5-14.0) % Monocytes % (Manual) 10 H (0-9) % Neutrophils # (Manual) 10.5 H (1.3-6.0) K/mm3 Monocytes # (Manual) 1.5 H (0.0-1.0) k/mm3 Nucleated RBCs 6.0 H (0-1) % PT 18.1 H (9.1-10.7) Seconds INR (Anticoag Therapy) 1.87 H (0.92-1.08) INR Potassium 4.7 H (3.4-4.6) mmol/L Anion Gap 14.7 H (6.8-13.8) mmol/L BUN 108 H (6-23) mg/dL Creatinine 3.80 H (0.4-1.4) mg/dL Est GFR (Non-Af Amer) 17 L (60-130) mL/min BUN/Creatinine Ratio 28.4 H (9.0-21.6) Random Glucose (70-110) mg/dL Phosphorus (2.2-4.2) mg/dL Total Protein 6.0 L (6.2-8.2) gm/dL Albumin 2.7 L (3.4-5.0) gm/dl 01/28/20 01/28/20 Range/Units 06:30 17:28 WBC (4.0-10.5) K/mm3 RBC (4.7-6.0) M/mm3 Hgb (13.5-18.0) gm/dL Hct (42.0-52.0) % MCH (27-31) pg RDW (11.5-14.0) % Monocytes % (Manual) (0-9) % Neutrophils # (Manual) (1.3-6.0) K/mm3 Monocytes # (Manual) (0.0-1.0) k/mm3 Nucleated RBCs (0-1) % PT (9.1-10.7) Seconds INR (Anticoag Therapy) (0.92-1.08) INR Potassium (3.4-4.6) mmol/L Anion Gap 15.6 H (6.8-13.8) mmol/L BUN 106 H (6-23) mg/dL Creatinine 3.56 H (0.4-1.4) mg/dL Est GFR (Non-Af Amer) 18 L (60-130) mL/min BUN/Creatinine Ratio 29.8 H (9.0-21.6) Random Glucose 112 H (70-110) mg/dL Phosphorus 5.1 H (2.2-4.2) mg/dL Total Protein (6.2-8.2) gm/dL Albumin 2.7 L (3.4-5.0) gm/dl - Exam Constitutional: Present: Alert, Oriented x3, Cooperative ENT Exam: Present: hearing grossly normal Respiratory: Present: lungs clear, normal breath sounds, no respiratory distress Cardiovascular/Chest: Present: regular rate, rhythm, other - valve click, edema - 3+ Extremity: Present: lower extremity edema - 3+ Skin Exam: Present: normal color, warm/dry, no cyanosis Assessment/Plan Plan Narrative: Elevated potassium and phosphorus today with increased weight. Ill give another dose of IV lasix. Holding IV fluids. Will start phosphate lowering medication. Anticipate discharge in the next 1-3 days but I would like electrolytes and fluid stable. - Problems/Diagnosis (1) Acute on chronic renal failure Problem: Acute Qualifiers: Chronic kidney disease stage: stage 3 (moderate) (2) Acute on chronic diastolic CHF (congestive heart failure) Problem: Acute (3) Hyperkalemia Problem: Acute (4) Hyperphosphatemia Problem: Acute
[2020-01-28] MEDS: TAMSULOSIN HCL 0.4 MG CAP.SR.24H PO SCH (20:20)
[2020-01-28] MEDS: ROSUVASTATIN CALCIUM 20 MG TABLET PO SCH (20:21)
[2020-01-29] MEDS: BUDESONIDE 0.5 MG/2 ML VIAL.NEB IH SCH (06:16)
[2020-01-29] MEDS: FORMOTEROL FUMARATE 20 MCG/2 ML VIAL IH SCH (06:16)
[2020-01-29] MEDS: LEVOTHYROXINE SODIUM 50 MCG TABLET PO SCH (06:50)
[2020-01-29 07:39] LABS: INR 2.08 INR (0.92-1.08)
[2020-01-29 09:40] LABS: Hematocrit 27.6 % (42.0-52.0); Hemoglobin 9.1 gm/dL (13.5-18.0); Mean Cell Volume 96.5 fl (78-100); Mean Corpuscular Hemoglobin 31.8 pg (27-31); Mean Platelet Volume 11.5 fl (8-11.3); Platelet Count 362 K/mm3 (150-450); Red Blood Count 2.86 M/mm3 (4.7-6.0); Red Cell Distribution Width 18.5 % (11.5-14.0); White Blood Count 15.6 K/mm3 (4.0-10.5)
[2020-01-29 09:41] LABS: Total Cells Counted 100
[2020-01-29] MEDS: buPROPion HCL 150 MG TAB.SR.24H PO SCH (09:43)
[2020-01-29] MEDS: CARVEDILOL 25 MG TABLET PO SCH (09:43)
[2020-01-29] MEDS: AMIODARONE HCL 200 MG TABLET PO SCH (09:45)
[2020-01-29] MEDS: SEVELAMER HCL 800 MG TABLET PO SCH ×2 (09:45→12:04)
[2020-01-29] MEDS: FLUOROMETHOLONE LEFTEYE SCH (09:46)
[2020-01-29] MEDS: prednisoLONE ACETATE 50 DROP BTL OP SCH (09:46)
[2020-01-29 10:04] LABS: Albumin * 2.7 gm/dl (3.4-5.0); Anion Gap 15.7 mmol/L (6.8-13.8); Anisocytosis 1+; BUN/Creatinine Ratio 33.4 (9.0-21.6); Bilirubin, Total 0.7 mg/dL (0.0-1.1); Ca. Corrected For Albumin 8.9 mg/dL (8.4-10.2); Calcium * 8.2 mg/dL (7.9-10.9); Lymphocyte 18 % (20-51); Monocyte 13 % (0-9); Neutrophil 69 % (42-75); Neutrophil # 10.8 K/mm3 (1.3-6.0); Phosphorus 5.6 mg/dL (2.2-4.2); Platelet Estimate Normal (NORMAL); Potassium 3.7 mmol/L (3.4-4.6); Total Protein 5.5 gm/dL (6.2-8.2)
[2020-01-29 10:05] LABS: Hypochromia Trace
--- NOTE | 2020-01-29 11:34 | DS ---
(1) Acute on chronic renal failure Problem: Acute Qualifiers: Chronic kidney disease stage: stage 3 (moderate) (2) Acute on chronic diastolic CHF (congestive heart failure) Problem: Resolved (3) Elevated INR Problem: Resolved Date of Discharge:: 01/29/20 Hospital Course: 74-year-old male with history of diastolic congestive heart failure and chronic kidney disease presented to hospital with shortness of breath and significant swelling in his lower extremities. He was found to have chronic congestive heart failure exacerbation as well as having an acute kidney injury overlying his chronic kidney disease. Patient's creatinine was significantly elevated (4.8) compared to baseline (2) but has been slowly coming down until he recently had increase in diuresis which significant improved on day of discharge (3.3). Initially his weight had increased by roughly 7 kg but this also has started to decrease with more aggressive diuresis. Today patient denies shortness of chela th or cough, states he is feeling better than he has in quite a while. His legs are fairly edematous with 2+ pitting edema up to just below his knee. Patient was also found on admission to have a significantly elevated INR (5), which is now close to therapeutic range (2). He has a mechanical valve so INR needs to be between 2.5-3.5. His vital signs are stable and he is afebrile. Satting well on room air. Patient also has a chronic leukocytosis, but this is also improving. No signs or symptoms of infection at this time. Patient to be discharged to a SNF facility for ongoing treatment and monitoring of his INR/kidney function. Improving but patient will need to see his invertebrate paleontologist soon which his PCP is aware of. Patient is in agreement with this treatment plan, excited to be out of the hospital. No changes to his chronic medications other than increasing his Lasix to 40 mg p.o. 3 times daily. Can return back to 40 mg twice daily after creatinine is closer to 2. Patient also needs to be fluid restricted to 60 ounces a day initially until kidney function returns to baseline. Procedures Performed: none Results and Findings: Lab Pending Results 01/22/20 12:18: WBC 18.2 H, RBC 3.01 L, Hgb 9.8 L, Hct 29.1 L, MCV 96.7, MCH 32.6 H, MCHC 33.7, RDW 18.8 H, Plt Count 360, MPV 10.9, Neutrophils % (Manual) 83 H, Lymphocytes % (Manual) 9 L, Monocytes % (Manual) 8, Neutrophils # (Manual) 15.1 H, Lymphocytes # (Manual) 1.6, Monocytes # (Manual) 1.5 H, Nucleated RBCs 1.0, Platelet Estimate Normal, Hypochromasia 2+, Anisocytosis 3+, Machias Cells 1+, Schistocytes 1+ 01/22/20 12:18: Sodium 139, Plasma Sodium 139, Potassium 4.3, Chloride 102, Carbon Dioxide 25.0, Anion Gap 16.3 H, BUN 88 H, Creatinine 4.80 H D, Est GFR (Non-Af Amer) 13 L D, BUN/Creatinine Ratio 18.3, Random Glucose 99, Calcium 8.2, Calcium Adj for Albumin 8.6, Total Bilirubin 0.5, AST 25, ALT 22, Alkaline Ph osphatase 86, B-Natriuretic Peptide 4071 H, Total Protein 6.3, Albumin 3.1 L 01/22/20 16:33: Sodium 139, Plasma Sodium 140, Potassium 4.1, Chloride 101, Carbon Dioxide 28.0, Anion Gap 14.1 H, BUN 88 H, Creatinine 4.79 H, Est GFR (Non-Af Amer) 13 L, BUN/Creatinine Ratio 18.4, Random Glucose 135 H D, Calcium 7.8 L, Calcium Adj for Albumin 8.4, Total Bilirubin 0.4, AST 25, ALT 24, Alkaline Phosphatase 86, Total Protein 6.0 L, Albumin 2.9 L 01/23/20 06:00: PT 46.7 H, INR (Anticoag Therapy) 5.02 H* 01/23/20 06:15: WBC 17.6 H, RBC 2.81 L, Hgb 9.0 L, Hct 27.0 L, MCV 96.1, MCH 32.0 H, MCHC 33.3, RDW 18.3 H, Plt Count 357, MPV 10.6, Neutrophils % (Manual) 79 H, Lymphocytes % (Manual) 10 L, Monocytes % (Manual) 10 H, Eosinophils % (Manual) 1, Neutrophils # (Manual) 13.9 H, Lymphocytes # (Manual) 1.8, Monocytes # (Manual) 1.8 H, Eosinophils # (Manual) 0.2, Platelet Estimate Normal, Hypochromasia 1+, Anisocytosis 1+, Ivanna Cells 1+, Schistocytes Trace 01/23/20 06:15: Sodium 138, Plasma Sodium 138, Potassium 3.9, Chloride 103, Carbon Dioxide 27.2, Anion Gap 11.7, BUN 97 H, Creatinine 4.41 H, Est GFR (Non- Af Amer) 14 L, BUN/Creatinine Ratio 22.0 H, Random Glucose 100, Uric Acid 6.0, Calcium 8.0, Calcium Adj for Albumin 8.6, Phosphorus 5.5 H D, Total Bilirubin 0.4, AST 21, ALT 15 L, Alkaline Phosphatase 78, Total Protein 5.9 L, Albumin 2.8 L 01/23/20 17:20: Sodium 137, Plasma Sodium 137, Potassium 3.9, Chloride 100, Carbon Dioxide 25.5, Anion Gap 15.4 H, BUN 98 H, Creatinine 4.56 H, Est GFR (Non-Af Amer) 13 L, BUN/Creatinine Ratio 21.5, Random Glucose 126 H, Calcium 7.7 L, Calcium Adj for Albumin 8.4, Total Bilirubin 0.4, AST 24, ALT 22, Alkaline Phosphatase 91, Total Protein 5.9 L, Albumin 2.7 L 01/24/20 06:00: WBC 18.7 H, RBC 2.79 L, Hgb 9.1 L, Hct 27.0 L, MCV 96.8, MCH 32.6 H, MCHC 33.7, RDW 18.4 H, Plt Count 378, MPV 11.6 H, Neutrophils % (Manual) 78 H, Lymphocytes % (Manual) 8 L, Monocytes % (Manual) 11 H, Eosinophils % (Manual) 3, Neutrophils # (Manual) 14.6 H, Lymphocytes # (Manual) 1.5, Monocytes # (Manual) 2.1 H, Eosinophils # (Manual) 0.6, Platelet Estimate Normal, Hypochromasia 1+, Stomatocytes 1+, Ivanna Cells 1+, Schistocytes 1+ 01/24/20 06:00: Sodium 137, Plasma Sodium 137, Potassium 4.3, Chloride 103, Carbon Dioxide 25.3, Anion Gap 13.0, BUN 97 H, Creatinine 4.17 H, Est GFR (Non- Af Amer) 15 L, BUN/Creatinine Ratio 23.3 H, Random Glucose 110, Calcium 7.8 L, Calcium Adj for Albumin 8.4, Total Bilirubin 0.5, AST 22, ALT 11 L, Alkaline Phosphatase 78, Total Protein 5.3 L, Albumin 2.8 L 01/24/20 06:17: PT 14.0 H, INR (Anticoag Therapy) 1.43 H 01/24/20 14:55: Sodium 137, Plasma Sodium 137, Potassium 3.7, Chloride 102, Carbon Dioxide 25.0, Anion Gap 13.7, BUN 94 H, Creatinine 3.97 H, Est GFR (Non- Af Amer) 16 L, BUN/Creatinine Ratio 23.7 H, Random Glucose 119 H, Calcium 7.8 L, Calcium Adj for Albumin 8.5, Total Bilirubin 0.5, AST 22, ALT 17 L, Alkaline Phosphatase 83, Total Protein 6.0 L, Albumin 2.7 L 01/25/20 06:00: PT 13.9 H, INR (Anticoag Therapy) 1.42 H 01/25/20 06:20: WBC 17.3 H, RBC 2.77 L, Hgb 8.8 L, Hct 26.6 L, MCV 96.0, MCH 31.8 H, MCHC 33.1, RDW 18.0 H, Plt Count 360, MPV 10.5, Neutrophils % (Manual) 73, Band Neuts % (Manual) 2, Lymphocytes % (Manual) 13 L, Monocytes % (Manual) 7, Eosinophils % (Manual) 1, Immature Granulocytes 4 H, Neutrophils # (Manual) 12.6 H, Lymphocytes # (Manual) 2.2, Monocytes # (Manual) 1.2 H, Eosinophils # (Manual) 0.2, Nucleated RBCs 2.0 H, Hypochromasia 1+, Anisocytosis 1+, Ivanna Cells 1+, Schistocytes 1+ 01/25/20 06:20: Sodium 137, Plasma Sodium 137, Potassium 4.1, Chloride 102, Carbon Dioxide 24.0, Anion Gap 15.1 H, BUN 96 H, Creatinine 4.15 H, Est GFR (Non-Af Amer) 15 L, BUN/Creatinine Ratio 23.1 H, Random Glucose 103, Calcium 8.2, Calcium Adj for Albumin 9.1, Total Bilirubin 0.6, AST 23, ALT 19, Alkaline Phosphatase 83, Total Protein 5.9 L, Albumin 2.5 L 01/25/20 18:15: Sodium 134, Plasma Sodium 134, Potassium 4.3, Chloride 100, Carbon Dioxide 24.4, Anion Gap 13.9 H, BUN 97 H, Creatinine 4.13 H, Est GFR (Non-Af Amer) 15 L, BUN/Creatinine Ratio 23.5 H, Random Glucose 128 H, Calcium 8.1, Calcium Adj for Albumin 8.7, Total Bilirubin 0.6, AST 22, ALT 19, Alkaline Phosphatase 96, Total Protein 6.3, Albumin 2.9 L 01/26/20 06:22: PT 16.9 H, INR (Anticoag Therapy) 1.74 H 01/26/20 06:22: WBC 16.1 H, RBC 2.83 L, Hgb 9.0 L, Hct 27.1 L, MCV 95.8, MCH 31.8 H, MCHC 33.2, RDW 18.1 H, Plt Count 374, MPV 11.1, Neutrophils % (Manual) 74, Lymphocytes % (Manual) 14 L, Monocytes % (Manual) 4, Eosinophils % (Manual) 1, Neutrophils # (Manual) 11.9 H, Lymphocytes # (Manual) 2.3, Monocytes # (Manual) 0.6, Eosinophils # (Manual) 0.2, Nucleated RBCs 5.0 H, Atypic/Reactive Lymphs 7 H, Platelet Estimate Normal, Hypochromasia 1+, Anisocytosis 1+, Machias Cells 1+, Schistocytes 1+ 01/26/20 06:22: Sodium 136, Plasma Sodium 136, Potassium 4.5, Chloride 102, Carbon Dioxide 26.0, Anion Gap 12.5, BUN 99 H, Creatinine 3.89 H, Est GFR (Non- Af Amer) 16 L, BUN/Creatinine Ratio 25.4 H, Random Glucose 103, Calcium 7.9, C alcium Adj for Albumin 8.6, Total Bilirubin 0.6, AST 23, ALT 22, Alkaline Phosphatase 93, Total Protein 6.0 L, Albumin 2.7 L 01/27/20 06:50: PT 18.2 H, INR (Anticoag Therapy) 1.88 H 01/27/20 06:50: WBC 15.4 H, RBC 2.91 L, Hgb 9.1 L, Hct 28.0 L, MCV 96.2, MCH 31.3 H, MCHC 32.5, RDW 18.4 H, Plt Count 380, MPV 11.0, Neutrophils % (Manual) 66, Band Neuts % (Manual) 7 H, Lymphocytes % (Manual) 13 L, Monocytes % (Manual) 13 H, Eosinophils % (Manual) 1, Neutrophils # (Manual) 10.2 H, Lymphocytes # (Manual) 2.0, Monocytes # (Manual) 2.0 H, Eosinophils # (Manual) 0.2, Nucleated RBCs 16.0 H, Platelet Estimate Normal, Hypochromasia 2+, Anisocytosis 1+, Target Cells 1+, Ivanna Cells 2+ 01/27/20 06:50: Sodium 137, Plasma Sodium 137, Potassium 4.8 H, Chloride 103, Carbon Dioxide 23.7 L, Anion Gap 15.1 H, BUN 99 H, Creatinine 3.78 H, Est GFR (Non-Af Amer) 17 L, BUN/Creatinine Ratio 26.2 H, Random Glucose 101, Calcium 8.3 01/28/20 05:40: PT 18.1 H, INR (Anticoag Therapy) 1.87 H 01/28/20 05:40: WBC 15.2 H, RBC 2.90 L, Hgb 9.2 L, Hct 27.8 L, MCV 95.9, MCH 31.7 H, MCHC 33.1, RDW 18.3 H, Plt Count 385, MPV 10.8, Neutrophils % (Manual) 69, Lymphocytes % (Manual) 20, Monocytes % (Manual) 10 H, Eosinophils % (Manual) 1, Neutrophils # (Manual) 10.5 H, Lymphocytes # (Manual) 3.0, Monocytes # (Manual) 1.5 H, Eosinophils # (Manual) 0.2, Nucleated RBCs 6.0 H, Platelet Estimate Normal, Hypochromasia 1+, Anisocytosis 1+, Target Cells 1+, Machias Cells 1+ 01/28/20 05:40: Sodium 138, Plasma Sodium 138, Potassium 4.7 H, Chloride 104, Carbon Dioxide 24.0, Anion Gap 14.7 H, BUN 108 H, Creatinine 3.80 H, Est GFR (Non-Af Amer) 17 L, BUN/Creatinine Ratio 28.4 H, Random Glucose 102, Calcium 8.5, Calcium Adj for Albumin 9.2, Total Bilirubin 0.7, AST 23, ALT 19, Alkaline Phosphatase 97, Total Protein 6.0 L, Albumin 2.7 L 01/28/20 06:30: Phosphorus 5.1 H 01/28/20 17:28: Sodium 138, Plasma Sodium 138, Potassium 4.1, Chloride 101, Carbon Dioxide 25.5, Anion Gap 15.6 H, BUN 106 H, Creatinine 3.56 H, Est GFR (Non-Af Amer) 18 L, BUN/Creatinine Ratio 29.8 H, Random Glucose 112 H, Calcium 8.2, Calcium Adj for Albumin 8.9, Total Bilirubin 0.8, AST 22, ALT 24, Alkaline Phosphatase 116, Total Protein 6.3, Albumin 2.7 L 01/29/20 07:25: PT 20.0 H, INR (Anticoag Therapy) 2.08 H 01/29/20 07:25: WBC 15.6 H, RBC 2.86 L, Hgb 9.1 L, Hct 27.6 L, MCV 96.5, MCH 31.8 H, MCHC 33.0, RDW 18.5 H, Plt Count 362, MPV 11.5 H, Neutrophils % (Manual) 69, Lymphocytes % (Manual) 18 L, Monocytes % (Manual) 13 H, Neutrophils # (Manual) 10.8 H, Lymphocytes # (Manual) 2.8, Monocytes # (Manual) 2.0 H, Nucleated RBCs 1.0, Platelet Estimate Normal, Hypochromasia Trace, Anisocytosis 1+, Stomatocytes 1+, Ivanna Cells 1+ 01/29/20 07:25: Sodium 141, Plasma Sodium 141, Potassium 3.7, Chloride 103, Carbon Dioxide 26.0, Anion Gap 15.7 H, BUN 113 H, Creatinine 3.38 H, Est GFR (Non-Af Amer) 19 L, BUN/Creatinine Ratio 33.4 H, Random Glucose 102, Calcium 8.2, Calcium Adj for Albumin 8.9, Phosphorus 5.6 H, Total Bilirubin 0.7, AST 22, ALT 19, Alkaline Phosphatase 108, Total Protein 5.5 L, Albumin 2.7 L Discharge Location: [facility] Disposition: [facility] Condition: Fair Level of Care: SNF Discharge Activity: Activity as tolerated Discharge Diet: Low fat/chol - Fluid restriction to 60 ounces of free fluid a day Residential Therapy: Physical Therapy, Occupation Therapy Referrals: John Dutton DO [Primary Care Provider] - One Week (Close monitoring of kidney function, may need dialysis at some point in future) Additional Patient Instructions (free text): [facility] SNF at discharge. PT and OT to evaluate and treat. Prescriptions (Any new or edited meds): Furosemide [Lasix] 40 mg PO TID #90 tab Transmission Status: Pending to [facility] Complete Home Medications List: Complete Home Medication List: Carvedilol [Coreg] 25 mg PO BID 06/12/13 Arformoterol Tartrate [Brovana] 15 mcg IH BID 11/21/13 Budesonide [Pulmicort] 0.5 mg IH BID 02/04/14 Nitroglycerin 0.4 mg SL [id number] PRN 02/09/14 Levalbuterol Tartrate [Xopenex Hfa] 2 puff IH Q6H PRN 07/22/14 Albuterol Sulfate 2.5 mg IH 1400 09/23/14 Atorvastatin Calcium [Lipitor] 40 mg PO HS 09/23/14 Fluorometholone [FML Ophthalmic Suspension] 1 drp LEFTEYE DAILY 09/23/14 Acetaminophen 1,000 mg PO Q6H PRN 04/03/18 amiodarone 200 mg tablet 200 mg PO DAILY 36 Days #36 tab 10/31/18 prednisolone acetate 1 % eye drops,suspension 1 drp RIGHTEYE DAILY 04/06/19 warfarin 2.5 mg tablet 2.5 mg PO SUMOTUTHFRSA tab 04/06/19 warfarin 5 mg tablet 5 mg PO WE tab 04/06/19 revefenacin 175 mcg/3 mL solution for nebulization 1 puff IH DAILY #90 ml 07/06/19 fexofenadine 180 mg tablet 180 mg PO HS 10/26/19 bupropion HCl 150 mg 24 hr tablet, extended release 150 mg PO DAILY #90 tab 12/11/19 Tamsulosin HCl [Flomax] 0.4 mg PO DAILY@1900 cap.sr.24h 12/17/19 levothyroxine 50 mcg capsule 50 mcg PO DAILY #90 cap 12/26/19 Allopurinol [Zyloprim] 150 mg PO 1500 01/22/20 Fluticasone Propionate [Flonase] 1 spray NS BID PRN 01/22/20 Potassium Chloride [K-Dur] 20 meq PO TID 01/22/20 Furosemide [Lasix] 40 mg PO TID #90 tab 01/29/20 Amb Orders for Discharge: Basic Metabolic Panel Time Frame: 2 Days, Facility: [facility], Location: Laboratory Prothrombin Time Time Frame: 2 Days, Facility: [facility], Location: Laboratory
[2020-01-29 13:50] VITALS: BP 131/53
== END 2020-01-29 13:40 | DRG 682 ==
LOC: CCFAL → MS 10:09
PROVIDERS: ADMIT Family Medicine; ATTEND Family Medicine
DX: E83.39 Other disorders of phosphorus metabolism; E87.5 Hyperkalemia; I50.33 Acute on chronic diastolic (congestive) heart failure; D72.829 Elevated white blood cell count, unspecified; N18.3 Chronic kidney disease, stage 3 (moderate); N17.9 Acute kidney failure, unspecified; I13.0 Hypertensive heart and chronic kidney disease with heart failure and stage 1 through stage 4 chronic kidney disease, or unspecified chronic kidney disease; E03.9 Hypothyroidism, unspecified; Z95.2 Presence of prosthetic heart valve; R53.1 Weakness; I25.10 Atherosclerotic heart disease of native coronary artery without angina pectoris; Z79.01 Long term (current) use of anticoagulants
CPT/HCPCS: 36415; 71020; 71046; 76770; 80048; 80053; 83519; 83880; 84100; 84550; 85007; 85025; 85610; 87040; 87081; 93005; 94640; 94660; 94664; 97110; 97116; 97161

== ENCOUNTER 2020-02-11 12:43 | Inpatient (IN) ==
[2020-02-11 13:15] LABS: Urine Bilirubin Negative (NEGATIVE); Urine Blood Negative /ul (NEGATIVE); Urine Ketone Negative (NEGATIVE); Urine Nitrite Negative (NEGATIVE); Urine Protein Negative (NEGATIVE); Urine Specific Gravity 1.015 SP.GR. (1.005-1.030); Urine Urobilinogen Normal (NORMAL); Urine pH 5.5 pH (5.0-7.0)
[2020-02-11 13:31] LABS: Urine Appearance Clear (CLEAR); Urine Color Yellow
[2020-02-11 13:32] LABS: Urine Bacteria TRACE; Urine Hyaline Cast 0-5 /LPF; Urine RBC None Seen /hpf (0-5); Urine WBC None Seen /hpf (0-5)
[2020-02-11 13:43] LABS: Hematocrit 32.6 % (42.0-52.0); Hemoglobin 10.5 gm/dL (13.5-18.0); Mean Cell Volume 96.2 fl (78-100); Mean Corpuscular Hgb Conc 32.2 g/dl (32-36); Mean Platelet Volume 11.7 fl (8-11.3); Platelet Count 390 K/mm3 (150-450); Red Blood Count 3.39 M/mm3 (4.7-6.0); Red Cell Distribution Width 18.2 % (11.5-14.0); White Blood Count 13.9 K/mm3 (4.0-10.5)
[2020-02-11 13:46] LABS: Total Cells Counted 100
[2020-02-11 14:01] LABS: Atypical (Reactive) Lymph 5 % (0-2); Band 1 % (0-2.0); Basophil 1 % (0-1); Eosinophil 6 % (0-3); Lymphocyte 19 % (20-51); Monocyte 16 % (0-9); Neutrophil 52 % (42-75); Neutrophil # 7.2 K/mm3 (1.3-6.0)
[2020-02-11 14:02] LABS: Anisocytosis 1+; Platelet Estimate Normal (NORMAL); Target Cells 1+
[2020-02-11 14:03] LABS: Albumin * 2.7 gm/dl (3.4-5.0); BUN/Creatinine Ratio 26.1 (9.0-21.6); Bilirubin, Total 0.5 mg/dL (0.0-1.1); Ca. Corrected For Albumin 9.2 mg/dL (8.4-10.2); Calcium * 8.5 mg/dL (7.9-10.9); Carbon Dioxide 23.8 mmol/L (24-32.6); Hypochromia 1+; Macrocytosis Trace; Microcytosis 1+; Potassium 3.8 mmol/L (3.4-4.6); Total Protein 6.5 gm/dL (6.2-8.2)
--- NOTE | 2020-02-11 14:03 | ERNOTE ---
Medical Problem HPI - Narrative Date of Service: 02/11/20 - General Chief Complaint: General Assessment Time Seen by Provider: 02/11/20 13:07 Source: patient, RN notes reviewed, old records Exam Limitations: no limitations - Immun/Allergies/Home Medications Immunizations: IMMUNIZATION HX Immunizations Up to Date Yes History of Influenza Vaccine Yes Hx Pneumococcal Vaccination Yes Allergies/Adverse Reactions: Allergies cat dander Allergy (Verified 02/11/20 13:03) Other mold Allergy (Verified 02/11/20 13:03) Other pollen extracts Allergy (Verified 02/11/20 13:03) Other Home Medications: HOME MEDICATIONS Carvedilol [Coreg] 25 mg PO BID 06/12/13 [Last Taken 04/03/18 09:00] Arformoterol Tartrate [Brovana] 15 mcg IH BID 11/21/13 [Last Taken 04/03/18 09:00] Budesonide [Pulmicort] 0.5 mg IH BID 02/04/14 [Last Taken 04/03/18 09:00] Nitroglycerin 0.4 mg SL [id number] PRN 02/09/14 [Last Taken Unknown] Levalbuterol Tartrate [Xopenex Hfa] 2 puff IH Q6H PRN 07/22/14 [Last Taken 06/25 05/06 08:30] Albuterol Sulfate 2.5 mg IH 1400 09/23/14 [Last Taken 04/02/18 16:00] Atorvastatin Calcium [Lipitor] 40 mg PO HS 09/23/14 [Last Taken 04/02/18 21:00] Fluorometholone [FML Ophthalmic Suspension] 1 drp LEFTEYE DAILY 09/23/14 [Last Taken 04/03/18 08:00] Acetaminophen 1,000 mg PO Q6H PRN 04/03/18 [Last Taken Unknown] amiodarone 200 mg tablet 200 mg PO DAILY 36 Days #36 tab 10/31/18 [Last Taken Unknown] prednisolone acetate 1 % eye drops,suspension 1 drp RIGHTEYE DAILY 04/06/19 [Last Taken Unknown] warfarin 2.5 mg tablet 2.5 mg PO SUMOTUTHFRSA tab 04/06/19 [Last Taken Unknown] warfarin 5 mg tablet 5 mg PO WE tab 04/06/19 [Last Taken Unknown] revefenacin 175 mcg/3 mL solution for nebulization 1 puff IH DAILY #90 ml 07/06/19 [Last Taken Unknown] fexofenadine 180 mg tablet 180 mg PO HS 10/26/19 [Last Taken Unknown] bupropion HCl 150 mg 24 hr tablet, extended release 150 mg PO DAILY #90 tab 12/11/19 [Last Taken Unknown] Tamsulosin HCl [Flomax] 0.4 mg PO DAILY@1900 cap.sr.24h 12/17/19 [Last Taken Unknown] levothyroxine 50 mcg capsule 50 mcg PO DAILY #90 cap 12/26/19 [Last Taken Unknown] Allopurinol [Zyloprim] 150 mg PO 1500 01/22/20 [Last Taken Unknown] Fluticasone Propionate [Flonase] 1 spray NS BID PRN 01/22/20 [Last Taken Unknown] Potassium Chloride [K-Dur] 20 meq PO TID 01/22/20 [Last Taken Unknown] Furosemide [Lasix] 80 mg PO TID 02/11/20 [Last Taken Unknown] - History of Present History Narrative: Darren is a 74-year-old male brought to the emergency department by private vehicle from [facility] for weight gain due to congestive heart failure. He also has chronic renal failure. He reports gaining at least 10 pounds in the past 2 weeks. He is more short of breath with exertion than his usual. His Lasix dose has been increased over the past few days to 80 mg 3 times daily. He has had 2 doses so far today. After a tele-visit with his cellular equipment repairer earlier today, it was decided that he should come here. He was hospitalized less than a month ago for the same problem. He denies any cough or fever. He also denies any chest pain. Review of Systems - Review of Systems Constitutional: Absent: fever, chills, malaise EYE: Present: no symptoms reported ENT: Absent: nose congestion, sore throat Respiratory: Present: shortness of breath. Absent: cough, wheezing Cardiology: Present: edema. Absent: chest pain Gastrointestinal/Abdominal: Absent: vomiting, diarrhea, abdominal pain Genitourinary: Absent: dysuria, decreased urinary output Skin: Present: no symptoms reported Neurological: Absent: headache, dizziness/light-headedness, weakness Endocrine: Present: no symptoms reported Hematologic/Lymphatic: Present: easy bruising, easy bleeding Psych: Present: no symptoms reported Medical History (Last Reviewed 02/11/20 @ 14:00 by Bhavna Dee NP) Bilateral lower extremity edema Bunion of right foot joint was replaced by Dr. Headley 2007 Toe pain, bilateral 1st degree AV block Onset Date: Unknown Anxiety Onset Date: Unknown Asthma Onset Date: ~02/1989 CAD (coronary artery disease) Onset Date: Unknown CHF (congestive heart failure) Onset Date: Unknown COPD (chronic obstructive pulmonary disease) Onset Date: Unknown Depression Onset Date: Unknown Erectile dysfunction Onset Date: ~07/1972 Diagnosed with sterility. Fatigue Onset Date: Unknown Fuchs' endothelial dystrophy Onset Date: 12/30/17 Hearing loss Onset Date: Unknown right ear Hodgkin disease Onset Date: ~09/1980 Hyperlipidemia Onset Date: Unknown Hypothyroidism Onset Date: 03/04/10 Mechanical heart valve present Onset Date: 05/26/17 Aortic valve. Meniere disease Onset Date: Unknown Pacemaker Onset Date: Unknown Pseudophakia Onset Date: 12/30/17 Shortness of breath Onset Date: Unknown Sleep apnea Onset Date: Unknown Acute pharyngitis Onset Date: 05/21/13 Arm pain Onset Date: 11/23/13 Left arm/elbow. Breast disorder Onset Date: 06/07/12 Left breast fullness. Cough Onset Date: 09/20/14 Multifactorial. Hypoglycemia Onset Date: ~06/2001 Low back pain Onset Date: Unknown with radiculopathy Mononucleosis Onset Date: ~1988 Pericarditis Onset Date: ~1988 Acute, viral. Rotator cuff tear, left Onset Date: 05/22/17 Sinusitis, acute Onset Date: Unknown Surgical History: Surgical History (Last Reviewed 02/11/20 @ 14:00 by Bhavna Dee NP) Cataract Onset Date: ~05/2011, right 05/2011 left Compartment syndrome Onset Date: ~04/2006 4 surgeries to correct- left hand Cornea transplant recipient Onset Date: ~09/2004 OD 2004 and 2001 OS H/O aortic valve replacement Onset Date: ~07/2003 [place] H/O coronary angiogram Onset Date: ~1992 [place], [place] H/O lymph node biopsy 1962 and 1971, biopsy of lymph nodes and in 72 for bilateral testies. 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 Jeremi Cha, [facility]. Left leg. History of splenectomy Onset Date: ~1969 With liver biopsy. History of toe surgery Onset Date: 10/11/08 History of tonsillectomy Onset Date: ~06/1952 S/P epidural steroid injection Onset Date: ~11/30/02 L4-5, L5-S1 Family History: Family History (Last Reviewed 02/11/20 @ 14:01 by Bhavna Dee NP) Father Heart disease Hyperlipemia Hypertension CVA (cerebral vascular accident) Uncle CVA (cerebral vascular accident) Mother Diabetes Hyperlipemia Glaucoma Crohns disease Aunt Diabetes Social History: (Last Reviewed 02/11/20 @ 14:01 by Bhavna Dee NP) Social History: Marital status: lives independently: No number of children: 1 current occupational status: retired Highest education level completed: Doctoral degree Service: No Tobacco: Smoking Status: Former smoker Alcohol: alcohol intake: current alcohol intake frequency: holiday/special occasion Substance Use: substance use type: does not use Dietary Habits: caffeine: Yes caffeine comment: current every day Type: tea Physical Exam - Physical Exam General Appearance: Present: alert, no apparent distress, obese, other - Pleasant, talkative Head Exam: Present: normal inspection Eye Exam: Normal inspection: bilateral Neck: Present: normal inspection, nontender, supple Respiratory: Present: no accessory muscle use - At rest but becomes dyspneic with minimal exertion, lungs clear, decreased breath sounds - bilateral bases d/t large body habitus Cardiovascular/Chest: Present: other - mechanical valve click present Extremity Exam: Present: non-tender, normal range of motion, extremity edema - 4+pitting up to knees Neurological Exam: Present: alert, oriented, normal mood/affect, no motor/sensory deficits Skin Exam: Present: normal color, warm/dry Progress - Results and Orders Patient's Lab Results:: I have reviewed the patient's lab results. - Vital Signs Patient's Vital Signs:: I have reviewed the patient's vital signs. Vital Signs: Vital Signs 02/11/20 12:58 02/11/20 13:19 02/11/20 13:42 Temperature 36.4 C Pulse Rate 80 80 80 Respiratory Rate 14 17 15 Blood Pressure 144/64 135/63 O2 Sat by Pulse Oximetry 95 94 94 - X-Ray X-Ray #1 X-Ray: chest Interpretation: Reviewed by me X-ray Comments: Technique: Portable AP view of the chest is compared to multiple prior exams dated from January 22, 2020 through May 08, 2019. Findings: Stable median sternotomy wires and prosthetic aortic valve. Stable cardiac pacer stable chronic left-sided pleural effusion and/or pleural scarring. No right-sided pleural effusion. No consolidation or pneumothorax. Cardiac silhouette is enlarged but stable. The pulmonary vasculature are normal for portable technique. The osseous structures demonstrate degenerative changes of the spine and shoulders. IMPRESSION: 1. STABLE MEDIAN STERNOTOMY WIRES, PROSTHETIC AORTIC VALVE, CARDIAC PACER AND CARDIOMEGALY . 2. STABLE SMALL CHRONIC LEFT-SIDED PLEURAL EFFUSION AND/OR PLEURAL SCARRING WITH NO ACUTE CARDIOPULMONARY ABNORMALITY IDENTIFIED Electronically signed by Giovanni Hopson D.O.. - Progress/Reassessment Chief Complaint: General Assessment Progress:: Unchanged Plan - Plan Plan: Renal function is significantly impaired but stable with a creatinine of 3.75 and GFR of 15. BN is 4700 today, this is up a little bit from his usual. Chest x-ray is stable. Dr. Dutton was contacted and agreed to admit the patient for diuresis and monitoring of his renal function. Departure Clinical Impression: CHF exacerbation Qualifiers: Heart failure type: unspecified Qualified Code(s): I50.9 - Heart failure, unspecified Acute on chronic renal failure Qualifiers: Acute renal failure type: unspecified Chronic kidney disease stage: unspecified stage Qualified Code(s): N17.9 - Acute kidney failure, unspecified - Departure Disposition: Still a patient Condition: Stable Referrals: John Dutton DO [Primary Care Provider] -
[2020-02-11 14:16] LABS: Prothrombin Time (Patient) 59.5 Seconds (9.1-10.7)
[2020-02-11 14:21] LABS: INR 6.46 INR (0.92-1.08)
[2020-02-11] MEDS: FUROSEMIDE 10 MG/ML VIAL IV SCH ×2 (17:01→22:11)
[2020-02-12] MEDS: FUROSEMIDE 10 MG/ML VIAL IV SCH (04:06)
[2020-02-12] MEDS ORDERED: FLUTICASONE PROPIONATE 120 SPRAY INHALER NS PRN (07:29)
[2020-02-12 08:01] LABS: Hematocrit 31.7 % (42.0-52.0); Hemoglobin 10.2 gm/dL (13.5-18.0); Mean Cell Volume 95.8 fl (78-100); Mean Corpuscular Hemoglobin 30.8 pg (27-31); Mean Corpuscular Hgb Conc 32.2 g/dl (32-36); Mean Platelet Volume 11.8 fl (8-11.3); NRBC# 0.1 k/mm3 (0-1); Neutrophil # 6.6 K/mm3 (1.3-6.0); Neutrophil % 55.7 % (42-75.0); Platelet Count 395 K/mm3 (150-450); Red Blood Count 3.31 M/mm3 (4.7-6.0); Red Cell Distribution Width 17.8 % (11.5-14.0); White Blood Count 11.8 K/mm3 (4.0-10.5)
[2020-02-12 08:17] LABS: Albumin * 2.7 gm/dl (3.4-5.0); Anion Gap 17.4 mmol/L (6.8-13.8); BUN/Creatinine Ratio 26.4 (9.0-21.6); Bilirubin, Total 0.6 mg/dL (0.0-1.1); Calcium * 8.3 mg/dL (7.9-10.9); Carbon Dioxide 23.2 mmol/L (24-32.6); Potassium 3.6 mmol/L (3.4-4.6); Total Protein 6.4 gm/dL (6.2-8.2)
[2020-02-12 08:23] LABS: Prothrombin Time (Patient) 65.7 Seconds (9.1-10.7)
[2020-02-12 08:28] LABS: INR 7.16 INR (0.92-1.08)
[2020-02-12] MEDS ORDERED: WARFARIN SODIUM 2.5 MG TABLET PO SCH (09:00)
[2020-02-12] MEDS: BUDESONIDE 0.5 MG/2 ML VIAL.NEB IH SCH ×2 (09:00→18:08)
[2020-02-12] MEDS: FORMOTEROL FUMARATE 20 MCG/2 ML VIAL IH SCH ×2 (09:01→18:08)
[2020-02-12] MEDS: LEVOTHYROXINE SODIUM 50 MCG TABLET PO SCH (09:59)
[2020-02-12] MEDS: buPROPion HCL 150 MG TAB.SR.24H PO SCH (10:00)
[2020-02-12] MEDS ORDERED: BUMETANIDE 0.25 MG/ML VIAL IV SCH (10:00)
[2020-02-12] MEDS: prednisoLONE ACETATE 50 DROP BTL RIGHTEYE SCH (10:00)
[2020-02-12] MEDS: CARVEDILOL 25 MG TABLET PO SCH ×2 (10:00→20:14)
[2020-02-12] MEDS: AMIODARONE HCL 200 MG TABLET PO SCH (10:00)
[2020-02-12] MEDS: YUPELRI PO SCH (10:00)
[2020-02-12] MEDS: POTASSIUM CHLORIDE 20 MEQ TABLET.SA PO SCH ×3 (10:00→17:25)
[2020-02-12] MEDS: FLUOROMETHOLONE LEFTEYE SCH (10:01)
[2020-02-12] MEDS: ALLOPURINOL 300 MG TABLET PO SCH (14:09)
--- NOTE | 2020-02-12 14:12 | HP ---
Chief Complaint - Chief Complaint Date of Service: 02/11/20 Time of Service: 16:30 Chief Complaint: Weight gain, edema, shortness of breath History of Present Illness: Darren is a 74 yo male who has been SNF at [facility] for recent hospitalization for acute on chronic diastolic CHF and acute on chronic renal failure. He was previously diuresed in the hospital with IV lasix and discharged on Lasix 40mg TID. His creatinine had improved from 4.8 to about 3.5 but he began retaining more fluid and having increased weight. His lasix was increased to 80mg PO TID but he continued to retain fluid and gain weight. He had a televisit with his [facility] who requested he go to the ER to be evaluated. He did not have any electrolyte abnormality but he has had about a 20lb weight gain since his last hospitalization. He reports edematous legs, scrotum, abdomen, and left arm. Medical History (Last Reviewed 02/11/20 @ 17:47 by Mary Kate Fischer RN) Bilateral lower extremity edema Bunion of right foot joint was replaced by Dr. Headley 2008 Toe pain, bilateral 1st degree AV block Onset Date: Unknown Anxiety Onset Date: Unknown Asthma Onset Date: ~02/1989 CAD (coronary artery disease) Onset Date: Unknown CHF (congestive heart failure) Onset Date: Unknown COPD (chronic obstructive pulmonary disease) Onset Date: Unknown Depression Onset Date: Unknown Erectile dysfunction Onset Date: ~07/1972 Diagnosed with sterility. Fatigue Onset Date: Unknown Fuchs' endothelial dystrophy Onset Date: 12/30/17 Hearing loss Onset Date: Unknown right ear Hodgkin disease Onset Date: ~09/1980 Hyperlipidemia Onset Date: Unknown Hypothyroidism Onset Date: 03/04/10 Mechanical heart valve present Onset Date: 05/26/17 Aortic valve. Meniere disease Onset Date: Unknown Pacemaker Onset Date: Unknown Pseudophakia Onset Date: 12/30/17 Shortness of breath Onset Date: Unknown Sleep apnea Onset Date: Unknown Acute pharyngitis Onset Date: 05/21/13 Arm pain Onset Date: 11/23/13 Left arm/elbow. Breast disorder Onset Date: 06/07/12 Left breast fullness. Cough Onset Date: 09/20/14 Multifactorial. Hypoglycemia Onset Date: ~06/2001 Low back pain Onset Date: Unknown with radiculopathy Mononucleosis Onset Date: ~1988 Pericarditis Onset Date: ~1988 Acute, viral. Rotator cuff tear, left Onset Date: 05/22/17 Sinusitis, acute Onset Date: Unknown Surgical History: Surgical History (Last Reviewed 02/11/20 @ 17:48 by Mary Kate Fischer RN) Cataract Onset Date: ~05/2011, right 05/2011 left Compartment syndrome Onset Date: ~04/2006 4 surgeries to correct- left hand Cornea transplant recipient Onset Date: ~09/2004 OD 2004 and 2001 OS H/O aortic valve replacement Onset Date: ~07/2003 [place] H/O coronary angiogram Onset Date: ~1992 [place], [place] H/O lymph node biopsy 1962 and 1971, biopsy of lymph nodes and in 72 for bilateral testies. 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 Jeremi hCa, [facility]. Left leg. History of splenectomy Onset Date: ~1969 With liver biopsy. History of toe surgery Onset Date: 10/11/08 History of tonsillectomy Onset Date: ~06/1952 S/P epidural steroid injection Onset Date: ~11/30/02 L4-5, L5-S1 Family History: Family History (Last Reviewed 02/11/20 @ 17:49 by Mary Kate Fischer RN) Father Heart disease Hyperlipemia Hypertension CVA (cerebral vascular accident) Uncle CVA (cerebral vascular accident) Mother Diabetes Hyperlipemia Glaucoma Crohns disease Aunt Diabetes Social History: (Last Reviewed 02/11/20 @ 17:50 by Mary Kate Fischer RN) Social History: fpc: Yes fpc comment: WPELIDA Marital status: lives independently: No number of children: 1 current occupational status: retired Highest education level completed: Doctoral degree Service: No Tobacco: Smoking Status: Former smoker Alcohol: alcohol intake: current alcohol intake frequency: holiday/special occasion Substance Use: substance use type: does not use Dietary Habits: caffeine: Yes caffeine comment: current every day Type: tea Review Of Systems (GEN) - Review of Systems Generalized/Overall Review: Present: Weakness, Weight gain. Absent: Chills, Fever EENTM: Absent: Eye Pain, Blurred Vision Respiratory: Present: Shortness of Breath. Absent: Cough Cardiac: Present: Edema. Absent: Chest Pain Abdominal: Absent: Nausea, Vomiting Genitourinary: Absent: Burning, Itching Musculoskeletal: Present: Back Pain. Absent: Joint Pain Neurological: Absent: Headache, Anxiety Skin: Absent: Dryness, Lesions Immunizations: IMMUNIZATION HX Immunizations Up to Date Yes History of Influenza Vaccine Yes Hx Pneumococcal Vaccination Yes Allergies/Adverse Reactions: Allergies Allergy/AdvReac Type Severity Reaction Status Date / Time cat dander Allergy Other Verified 02/11/20 17:50 mold Allergy Other Verified 02/11/20 17:50 pollen extracts Allergy Other Verified 02/11/20 17:50 Home Medications: HOME MEDICATIONS Carvedilol [Coreg] 25 mg PO BID 06/12/13 [Last Taken 04/03/18 09:00] Arformoterol Tartrate [Brovana] 15 mcg IH BID 11/21/13 [Last Taken 04/03/18 09:00] Budesonide [Pulmicort] 0.5 mg IH BID 02/04/14 [Last Taken 04/03/18 09:00] Nitroglycerin 0.4 mg SL [id number] PRN 02/09/14 [Last Taken Unknown] Levalbuterol Tartrate [Xopenex Hfa] 2 puff IH Q6H PRN 07/22/14 [Last Taken 07/20/14 08:30] Albuterol Sulfate 2.5 mg IH 1400 09/23/14 [Last Taken 04/02/18 16:00] Atorvastatin Calcium [Lipitor] 40 mg PO HS 09/23/14 [Last Taken 04/02/18 21:00] Fluorometholone [FML Ophthalmic Suspension] 1 drp LEFTEYE DAILY 09/23/14 [Last Taken 04/03/18 08:00] Acetaminophen 1,000 mg PO Q6H PRN 04/03/18 [Last Taken Unknown] amiodarone 200 mg tablet 200 mg PO DAILY 36 Days #36 tab 10/31/18 [Last Taken Unknown] prednisolone acetate 1 % eye drops,suspension 1 drp RIGHTEYE DAILY 04/06/19 [Last Taken Unknown] warfarin 2.5 mg tablet 2.5 mg PO DAILY tab 04/06/19 [Last Taken Unknown] revefenacin 175 mcg/3 mL solution for nebulization 1 puff IH DAILY #90 ml 07/06/19 [Last Taken Unknown] fexofenadine 180 mg tablet 180 mg PO HS 10/26/19 [Last Taken Unknown] bupropion HCl 150 mg 24 hr tablet, extended release 150 mg PO DAILY #90 tab 12/11/19 [Last Taken Unknown] Tamsulosin HCl [Flomax] 0.4 mg PO DAILY@1900 cap.sr.24h 12/17/19 [Last Taken Unknown] levothyroxine 50 mcg capsule 50 mcg PO DAILY #90 cap 12/26/19 [Last Taken Unknown] Allopurinol [Zyloprim] 150 mg PO 1500 01/22/20 [Last Taken Unknown] Fluticasone Propionate [Flonase] 1 spray NS BID PRN 01/22/20 [Last Taken Unknown] Potassium Chloride [K-Dur] 20 meq PO TID 01/22/20 [Last Taken Unknown] Furosemide [Lasix] 80 mg PO TID 02/11/20 [Last Taken Unknown] Exam - Exam Vital Signs: Vital Signs - Last Taken Temp 36.6 C 02/12/20 09:55 Pulse 80 02/12/20 10:00 Resp 20 02/12/20 09:55 BP 129/54 02/12/20 10:00 Pulse Ox 96 02/12/20 09:55 Constitutional: Present: Alert, Oriented x3, Cooperative, Morbidly obese ENT Exam: Present: hearing grossly normal Eye Exam: bilateral eye: normal inspection Respiratory: Present: lungs clear, normal breath sounds, no respiratory distress Cardiovascular/Chest: Present: regular rate, rhythm, other - valve click, edema - 4+ Peripheral Pulses: radial (R): 2+, radial (L): 2+ Abdomen: Present: Normal bowel sounds, nontender, distended - with tight and edematous abdominal skin Extremity: Present: lower extremity edema - 4+ Eye contact: Present: cooperative, good eye contact, normal speech Thoughts: Present: normal thought pattern, no apparent hallucination Diagnostic Studies: Abnormal Lab Results 02/11/20 02/12/20 02/12/20 Range/Units 13:50 07:49 07:49 WBC 11.8 H (4.0-10.5) K/mm3 RBC 3.31 L (4.7-6.0) M/mm3 Hgb 10.2 L (13.5-18.0) gm/dL Hct 31.7 L (42.0-52.0) % RDW 17.8 H (11.5-14.0) % MPV 11.8 H (8-11.3) fl Immature Gran % (Auto) 0.60 H (0.001-0.429) % Immature Gran # (Auto) 0.07 H (0.000-0.0310) K/mm3 Monocytes % 12.2 H (0.0-9) % Eosinophils % 6.0 H (0.0-3.0) % Neutrophils # 6.6 H (1.3-6.0) K/mm3 Monocytes # 1.5 H (0.0-1.0) k/mm3 PT 59.5 H 65.7 H (9.1-10.7) Seconds INR (Anticoag Therapy) 6.46 H* 7.16 H* (0.92-1.08) INR Carbon Dioxide (24-32.6) mmol/L Anion Gap (6.8-13.8) mmol/L BUN (6-23) mg/dL Creatinine (0.4-1.4) mg/dL Est GFR (Non-Af Amer) (60-130) mL/min BUN/Creatinine Ratio (9.0-21.6) ALT (19-67) U/L Albumin (3.4-5.0) gm/dl 02/12/20 Range/Units 07:49 WBC (4.0-10.5) K/mm3 RBC (4.7-6.0) M/mm3 Hgb (13.5-18.0) gm/dL Hct (42.0-52.0) % RDW (11.5-14.0) % MPV (8-11.3) fl Immature Gran % (Auto) (0.001-0.429) % Immature Gran # (Auto) (0.000-0.0310) K/mm3 Monocytes % (0.0-9) % Eosinophils % (0.0-3.0) % Neutrophils # (1.3-6.0) K/mm3 Monocytes # (0.0-1.0) k/mm3 PT (9.1-10.7) Seconds INR (Anticoag Therapy) (0.92-1.08) INR Carbon Dioxide 23.2 L (24-32.6) mmol/L Anion Gap 17.4 H (6.8-13.8) mmol/L BUN 96 H (6-23) mg/dL Creatinine 3.63 H (0.4-1.4) mg/dL Est GFR (Non-Af Amer) 18 L (60-130) mL/min BUN/Creatinine Ratio 26.4 H (9.0-21.6) ALT 16 L (19-67) U/L Albumin 2.7 L (3.4-5.0) gm/dl Microbiology 02/11/20 17:47 - Final Nares MRSA Positive Laboratory Results WBC 11.8 K/mm3 (4.0-10.5) H 02/12/20 07:49 RBC 3.31 M/mm3 (4.7-6.0) L 02/12/20 07:49 Hgb 10.2 gm/dL (13.5-18.0) L 02/12/20 07:49 Hct 31.7 % (42.0-52.0) L 02/12/20 07:49 MCV 95.8 fl (78-100) 02/12/20 07:49 MCH 30.8 pg (27-31) 02/12/20 07:49 MCHC 32.2 g/dl (32-36) 02/12/20 07:49 RDW 17.8 % (11.5-14.0) H 02/12/20 07:49 Plt Count 395 K/mm3 (150-450) 02/12/20 07:49 MPV 11.8 fl (8-11.3) H 02/12/20 07:49 Immature Gran % (Auto) 0.60 % (0.001-0.429) H 02/12/20 07:49 Immature Gran # (Auto) 0.07 K/mm3 (0.000-0.0310) H 02/12/20 07:49 Neutrophils % 55.7 % (42-75.0) 02/12/20 07:49 Neutrophils % (Manual) 52 % (42-75) 02/11/20 13:37 Band Neuts % (Manual) 1 % (0-2.0) 02/11/20 13:37 Lymphocytes % 24.5 % (20-51) 02/12/20 07:49 Lymphocytes % (Manual) 19 % (20-51) L 02/11/20 13:37 Monocytes % 12.2 % (0.0-9) H 02/12/20 07:49 Monocytes % (Manual) 16 % (0-9) H 02/11/20 13:37 Eosinophils % 6.0 % (0.0-3.0) H 02/12/20 07:49 Eosinophils % (Manual) 6 % (0-3) H 02/11/20 13:37 Basophils % 1.0 % (0.0-1.0) 02/12/20 07:49 Basophils % (Manual) 1 % (0-1) 02/11/20 13:37 Nucleated RBC % 0.1 k/mm3 (0-1) 02/12/20 07:49 Neutrophils # 6.6 K/mm3 (1.3-6.0) H 02/12/20 07:49 Neutrophils # (Manual) 7.2 K/mm3 (1.3-6.0) H 02/11/20 13:37 Lymphocytes # 2.90 k/mm3 (1.5-3.5) 02/12/20 07:49 Lymphocytes # (Manual) 2.6 k/mm3 (1.5-3.5) 02/11/20 13:37 Monocytes # 1.5 k/mm3 (0.0-1.0) H 02/12/20 07:49 Monocytes # (Manual) 2.2 k/mm3 (0.0-1.0) H 02/11/20 13:37 Eosinophils # 0.7 k/mm3 (0.0-0.7) 02/12/20 07:49 Eosinophils # (Manual) 0.8 k/mm3 (0.0-0.7) H 02/11/20 13:37 Basophils # (Manual) 0.1 k/mm3 (0.0-0.1) 02/11/20 13:37 Absolute Basophils 0.1 k/mm3 (0.0-0.1) 02/12/20 07:49 Atypic/Reactive Lymphs 5 % (0-2) H 02/11/20 13:37 Platelet Estimate Normal (NORMAL) 02/11/20 13:37 Hypochromasia 1+ 02/11/20 13:37 Anisocytosis 1+ 02/11/20 13:37 Microcytosis 1+ 02/11/20 13:37 Macrocytosis Trace 02/11/20 13:37 Target Cells 1+ 02/11/20 13:37 PT 65.7 Seconds (9.1-10.7) H 02/12/20 07:49 INR (Anticoag Therapy) 7.16 INR (0.92-1.08) H* 02/12/20 07:49 Sodium 142 mmol/L (132-142) 02/12/20 07:49 Plasma Sodium 142 mmol/L (130-142) 02/12/20 07:49 Potassium 3.6 mmol/L (3.4-4.6) 02/12/20 07:49 Chloride 105 mmol/L (97-106) 02/12/20 07:49 Carbon Dioxide 23.2 mmol/L (24-32.6) L 02/12/20 07:49 Anion Gap 17.4 mmol/L (6.8-13.8) H 02/12/20 07:49 BUN 96 mg/dL (6-23) H 02/12/20 07:49 Creatinine 3.63 mg/dL (0.4-1.4) H 02/12/20 07:49 Est GFR (Non-Af Amer) 18 mL/min (60-130) L 02/12/20 07:49 BUN/Creatinine Ratio 26.4 (9.0-21.6) H 02/12/20 07:49 Random Glucose 95 mg/dL (70-110) 02/12/20 07:49 Calcium 8.3 mg/dL (7.9-10.9) 02/12/20 07:49 Calcium Adj for Albumin 9.0 mg/dL (8.4-10.2) 02/12/20 07:49 Total Bilirubin 0.6 mg/dL (0.0-1.1) 02/12/20 07:49 AST 22 U/L (0-48) 02/12/20 07:49 ALT 16 U/L (19-67) L 02/12/20 07:49 Alkaline Phosphatase 105 U/L (50-170) 02/12/20 07:49 B-Natriuretic Peptide 4728 pg/mL (5-350) H 02/11/20 13:37 Total Protein 6.4 gm/dL (6.2-8.2) 02/12/20 07:49 Albumin 2.7 gm/dl (3.4-5.0) L 02/12/20 07:49 Urine Color Yellow 02/11/20 13:10 Urine Appearance Clear (CLEAR) 02/11/20 13:10 Urine pH 5.5 pH (5.0-7.0) 02/11/20 13:10 Ur Specific [place] 1.015 SP.GR. (1.005-1.030) 02/11/20 13:10 Urine Protein Negative mg/dL (NEGATIVE) 02/11/20 13:10 Urine Glucose (UA) Negative mg/dL (NEGATIVE) 02/11/20 13:10 Urine Ketones Negative mg/dL (NEGATIVE) 02/11/20 13:10 Urine Blood Negative /ul (NEGATIVE) 02/11/20 13:10 Urine Nitrate Negative (NEGATIVE) 02/11/20 13:10 Urine Bilirubin Negative mg/dl (NEGATIVE) 02/11/20 13:10 Urine Urobilinogen Normal EU/dl (NORMAL) 02/11/20 13:10 Ur Leukocyte Esterase Negative /ul (NEGATIVE) 02/11/20 13:10 Urine RBC None seen /hpf (0-5) 02/11/20 13:10 Urine WBC None seen /hpf (0-5) 02/11/20 13:10 Ur Epithelial Cells 0-5 /hpf (0-5) 02/11/20 13:10 Urine Bacteria Trace (NONE) 02/11/20 13:10 Hyaline Casts 0-5 /LPF (NONE) H 02/11/20 13:10 Urine Culture Comments No culture indicated 02/11/20 13:10 Assessment/Plan - Narrative Narrative: Darren is a 74 yo male with: 1) Renal Anasarca - He has significant edema from feet to abdomen including scrotum. Will diurese with aggressive IV lasix 80mg IV q6hr. Will monitor renal function and weight. He has no significant electrolyte abnormality. He is up about 20lbs. I suspect it will take >2 midnights to adequately diurese him and he may potentially need transfer to inpatient with nephrology at [facility]. Will monitor his response with IV lasix. 2) Acute on Chronic Diastolic CHF with hypervolumia/edema. Treatment as above. 3) Will admit to observation but if he does not respond adequately enough he may need greater than 2 midnights and may qualify for inpatient status. - Assessment/Plan (1) Anasarca associated with disorder of kidney Problem: Acute (2) Acute on chronic diastolic CHF (congestive heart failure) Problem: Acute
[2020-02-12] MEDS: ACETAMINOPHEN 500 MG TABLET PO PRN (14:54)
[2020-02-12] MEDS ORDERED: BUMETANIDE 0.25 MG/ML VIAL IV ONE (16:00)
[2020-02-12] MEDS: TAMSULOSIN HCL 0.4 MG CAP.SR.24H PO SCH (19:24)
[2020-02-12] MEDS: LORATADINE 10 MG TABLET PO SCH (20:14)
[2020-02-12] MEDS: ROSUVASTATIN CALCIUM 20 MG TABLET PO SCH (20:14)
[2020-02-12] MEDS ORDERED: BUMETANIDE 1 MG TABLET PO SCH (22:52)
--- NOTE | 2020-02-12 22:52 | PN ---
Subjective - Date and Time Seen Date: 02/12/20 Time: 12:00 Subjective Narrative: Darren received a dose of Bumex 2mg IV at 10am and feels so far that it has worked better than the lasix. His weight is down 6 lbs and creatinine is stable. He is still up about 15lbs in the past 2 weeks. No shortness of breath. He reports scrotum is sore. No fever or shortness of breath. Objective - Vitals Vitals: Last Vital Signs Temp 36.5 C 02/12/20 18:23 Pulse 80 02/12/20 20:14 Resp 16 02/12/20 18:23 BP 120/57 02/12/20 20:14 Pulse Ox 95 02/12/20 18:23 - Abnormal Lab Findings Abnormal Lab Findings: Abnormal Lab Results 02/12/20 02/12/20 02/12/20 Range/Units 07:49 07:49 07:49 WBC 11.8 H (4.0-10.5) K/mm3 RBC 3.31 L (4.7-6.0) M/mm3 Hgb 10.2 L (13.5-18.0) gm/dL Hct 31.7 L (42.0-52.0) % RDW 17.8 H (11.5-14.0) % MPV 11.8 H (8-11.3) fl Immature Gran % (Auto) 0.60 H (0.001-0.429) % Immature Gran # (Auto) 0.07 H (0.000-0.0310) K/mm3 Monocytes % 12.2 H (0.0-9) % Eosinophils % 6.0 H (0.0-3.0) % Neutrophils # 6.6 H (1.3-6.0) K/mm3 Monocytes # 1.5 H (0.0-1.0) k/mm3 PT 65.7 H (9.1-10.7) Seconds INR (Anticoag Therapy) 7.16 H* (0.92-1.08) INR Carbon Dioxide 23.2 L (24-32.6) mmol/L Anion Gap 17.4 H (6.8-13.8) mmol/L BUN 96 H (6-23) mg/dL Creatinine 3.63 H (0.4-1.4) mg/dL Est GFR (Non-Af Amer) 18 L (60-130) mL/min BUN/Creatinine Ratio 26.4 H (9.0-21.6) ALT 16 L (19-67) U/L Albumin 2.7 L (3.4-5.0) gm/dl - Exam Constitutional: Present: Alert, Oriented x3, Cooperative ENT Exam: Present: hearing grossly normal Respiratory: Present: lungs clear, normal breath sounds Cardiovascular/Chest: Present: regular rate, rhythm, edema - anasarca up to abdomen Abdomen: Present: Normal bowel sounds, nontender, distended - edematous Extremity: Present: lower extremity edema - 4+ Skin Exam: Present: normal color, warm/dry, no cyanosis Appearance: Present: appropriate appearance, appropriate insight Eye contact: Present: cooperative, good eye contact, normal speech Assessment/Plan Plan Narrative: Darren is improved but he is still significantly edematous. I am concerned that when I switch him to oral he will not be able to keep the fluid off and he is not back at his baseline weight. Will continue using bumex as he believes it is working better. May trial oral bumex. If he is getting a good response with this he may be discharged to home tomorrow. - Problems/Diagnosis (1) Anasarca associated with disorder of kidney Problem: Acute (2) Acute on chronic diastolic CHF (congestive heart failure) Problem: Acute
[2020-02-13] MEDS: FORMOTEROL FUMARATE 20 MCG/2 ML VIAL IH SCH ×2 (06:14→17:59)
[2020-02-13] MEDS: BUDESONIDE 0.5 MG/2 ML VIAL.NEB IH SCH ×2 (06:14→17:59)
[2020-02-13] MEDS: LEVOTHYROXINE SODIUM 50 MCG TABLET PO SCH (06:37)
[2020-02-13] MEDS: ACETAMINOPHEN 500 MG TABLET PO PRN (06:40)
[2020-02-13] MEDS: AMIODARONE HCL 200 MG TABLET PO SCH (08:25)
[2020-02-13] MEDS: FLUOROMETHOLONE LEFTEYE SCH (08:26)
[2020-02-13] MEDS: POTASSIUM CHLORIDE 20 MEQ TABLET.SA PO SCH ×3 (08:26→16:41)
[2020-02-13] MEDS: CARVEDILOL 25 MG TABLET PO SCH ×2 (08:26→20:11)
[2020-02-13] MEDS: prednisoLONE ACETATE 50 DROP BTL RIGHTEYE SCH (08:28)
[2020-02-13] MEDS: buPROPion HCL 150 MG TAB.SR.24H PO SCH (08:29)
[2020-02-13] MEDS: YUPELRI PO SCH (08:37)
[2020-02-13] MEDS ORDERED: METOLAZONE 5 MG TABLET PO ONE (08:54)
[2020-02-13] MEDS: BUMETANIDE 1 MG TABLET PO SCH (10:14)
[2020-02-13 10:37] LABS: Hematocrit 30.7 % (42.0-52.0); Mean Cell Volume 95.9 fl (78-100); Mean Corpuscular Hemoglobin 31.3 pg (27-31); Mean Corpuscular Hgb Conc 32.6 g/dl (32-36); Mean Platelet Volume 11.4 fl (8-11.3); NRBC# 0.1 k/mm3 (0-1); Neutrophil # 8.1 K/mm3 (1.3-6.0); Neutrophil % 64.4 % (42-75.0); Platelet Count 394 K/mm3 (150-450); Red Cell Distribution Width 17.8 % (11.5-14.0); White Blood Count 12.6 K/mm3 (4.0-10.5)
[2020-02-13 10:48] LABS: Albumin * 2.6 gm/dl (3.4-5.0); Anion Gap 13.5 mmol/L (6.8-13.8); BUN/Creatinine Ratio 26.8 (9.0-21.6); Bilirubin, Total 0.4 mg/dL (0.0-1.1); Ca. Corrected For Albumin 8.8 mg/dL (8.4-10.2); Carbon Dioxide 27.2 mmol/L (24-32.6); Potassium 3.7 mmol/L (3.4-4.6); Total Protein 6.2 gm/dL (6.2-8.2)
[2020-02-13 11:00] LABS: Prothrombin Time (Patient) 42.8 Seconds (9.1-10.7)
[2020-02-13 11:02] LABS: INR 4.58 INR (0.92-1.08)
[2020-02-13 11:44] LABS: Random Urine Total Protein 8.8 mg/dL (0-12)
--- NOTE | 2020-02-13 14:28 | PN ---
Subjective - Date and Time Seen Date: 02/13/20 Time: 08:00 Subjective Narrative: Darren remains severely edematous from his feet to his upper abdomen. He reports cool extremities and skin is tight and sore. scrotum and penis are swollen, tight, erythematous. He has not lost any significant weight in the last 24 hours. Discussed with nephrology at [facility] who recommended increasing dose of bumex and adding metolazone. Darren reports abdominal pain and distension, this is worse in the right upper abdomen. Scrotum is painful due to swelling. Objective - Vitals Vitals: Last Vital Signs Temp 36.6 C 02/13/20 10:50 Pulse 80 02/13/20 10:50 Resp 16 02/13/20 10:50 BP 128/63 02/13/20 10:50 Pulse Ox 92 L 02/13/20 10:50 - Abnormal Lab Findings Abnormal Lab Findings: Abnormal Lab Results 02/13/20 02/13/20 02/13/20 Range/Units 10:28 10:28 10:28 WBC 12.6 H (4.0-10.5) K/mm3 RBC 3.20 L (4.7-6.0) M/mm3 Hgb 10.0 L (13.5-18.0) gm/dL Hct 30.7 L (42.0-52.0) % MCH 31.3 H (27-31) pg RDW 17.8 H (11.5-14.0) % MPV 11.4 H (8-11.3) fl Immature Gran % (Auto) 0.70 H (0.001-0.429) % Immature Gran # (Auto) 0.09 H (0.000-0.0310) K/mm3 Lymphocytes % 17.8 L (20-51) % Monocytes % 11.2 H (0.0-9) % Eosinophils % 5.0 H (0.0-3.0) % Neutrophils # 8.1 H (1.3-6.0) K/mm3 Monocytes # 1.4 H (0.0-1.0) k/mm3 PT 42.8 H (9.1-10.7) Seconds INR (Anticoag Therapy) 4.58 H* (0.92-1.08) INR BUN 98 H (6-23) mg/dL Creatinine 3.65 H (0.4-1.4) mg/dL Est GFR (Non-Af Amer) 17 L (60-130) mL/min BUN/Creatinine Ratio 26.8 H (9.0-21.6) Random Glucose 129 H D (70-110) mg/dL ALT 17 L (19-67) U/L Albumin 2.6 L (3.4-5.0) gm/dl - Exam Constitutional: Present: Alert, Oriented x3, Cooperative Respiratory: Present: lungs clear, normal breath sounds Cardiovascular/Chest: Present: regular rate, rhythm, other - valvular click Abdomen: Present: Normal bowel sounds, distended - skin is tight and edematous, brawny /Rectal: Present: Other - Scrotum and penis have woody edema with shiny skin which is erythematous and breakdown appears immenent Skin Exam: Present: other - Skin is compromised from feet to abdomen with severe edema. Erythematous and shiny in areas. Assessment/Plan Plan Narrative: Darren has severe anasarca which is resistent to diuretics so far. Increasing bumex and adding metolazone. His skin has immenent breakdown. Will add zinc oxide to help create protective barrier. I anticipate it will take an additional 2-4 days to adequately diurese. He meets inpatient criteria as he has failed my attempt at treating as outpatient and observation. If he continues to fail medical management he may need transfer to nephrology and consideration for dialysis. - Problems/Diagnosis (1) Anasarca associated with disorder of kidney Problem: Acute (2) Acute on chronic diastolic CHF (congestive heart failure) Problem: Acute
[2020-02-13] MEDS: ALLOPURINOL 300 MG TABLET PO SCH (15:24)
[2020-02-13] MEDS: ZINC OXIDE 60 APPL TUBE TP PRN (15:24)
[2020-02-13] MEDS ORDERED: BUMETANIDE 1 MG TABLET PO ONE (16:45)
[2020-02-13] MEDS: TAMSULOSIN HCL 0.4 MG CAP.SR.24H PO SCH (19:45)
[2020-02-13] MEDS: ROSUVASTATIN CALCIUM 20 MG TABLET PO SCH (20:11)
[2020-02-13] MEDS: LORATADINE 10 MG TABLET PO SCH (20:11)
[2020-02-13] MEDS ORDERED: BUMETANIDE 0.25 MG/ML VIAL IV ONE (22:31)
[2020-02-14] MEDS: BUDESONIDE 0.5 MG/2 ML VIAL.NEB IH SCH ×2 (06:11→18:04)
[2020-02-14] MEDS: FORMOTEROL FUMARATE 20 MCG/2 ML VIAL IH SCH ×2 (06:11→18:04)
[2020-02-14 06:35] LABS: Hematocrit 30.3 % (42.0-52.0); Hemoglobin 9.8 gm/dL (13.5-18.0); Mean Cell Volume 95.9 fl (78-100); Mean Corpuscular Hgb Conc 32.3 g/dl (32-36); Mean Platelet Volume 11.7 fl (8-11.3); Platelet Count 393 K/mm3 (150-450); Red Blood Count 3.16 M/mm3 (4.7-6.0); Red Cell Distribution Width 17.4 % (11.5-14.0); White Blood Count 12.5 K/mm3 (4.0-10.5)
[2020-02-14 06:40] LABS: INR 3.94 INR (0.92-1.08)
[2020-02-14 06:41] LABS: Total Cells Counted 100
[2020-02-14 06:47] LABS: Albumin * 2.6 gm/dl (3.4-5.0); Anion Gap 13.4 mmol/L (6.8-13.8); Bilirubin, Total 0.4 mg/dL (0.0-1.1); Ca. Corrected For Albumin 8.8 mg/dL (8.4-10.2); Carbon Dioxide 26.6 mmol/L (24-32.6); Total Protein 5.9 gm/dL (6.2-8.2)
[2020-02-14] MEDS: LEVOTHYROXINE SODIUM 50 MCG TABLET PO SCH (06:51)
[2020-02-14 06:52] LABS: Eosinophil 4 % (0-3); Lymphocyte 26 % (20-51); Monocyte 12 % (0-9); Neutrophil 58 % (42-75); Neutrophil # 7.3 K/mm3 (1.3-6.0); Nucleated Red Blood Cell 0.1 % (0-1)
[2020-02-14 06:53] LABS: Anisocytosis 1+; Macrocytosis 1+; Target Cells 1+
[2020-02-14 06:54] LABS: Platelet Estimate Normal (NORMAL)
[2020-02-14] MEDS: ACETAMINOPHEN 500 MG TABLET PO PRN (07:06)
[2020-02-14] MEDS ORDERED: METOLAZONE 5 MG TABLET PO ONE (07:50)
[2020-02-14] MEDS: FLUOROMETHOLONE LEFTEYE SCH (08:19)
[2020-02-14] MEDS: prednisoLONE ACETATE 50 DROP BTL RIGHTEYE SCH (08:20)
[2020-02-14] MEDS: buPROPion HCL 150 MG TAB.SR.24H PO SCH (08:22)
[2020-02-14] MEDS: CARVEDILOL 25 MG TABLET PO SCH ×2 (08:22→20:00)
[2020-02-14] MEDS: AMIODARONE HCL 200 MG TABLET PO SCH (08:22)
[2020-02-14] MEDS: YUPELRI PO SCH (08:23)
[2020-02-14] MEDS: BUMETANIDE 1 MG TABLET PO SCH (08:53)
[2020-02-14] MEDS ORDERED: POTASSIUM CHLORIDE 20 MEQ TABLET.SA PO SCH (09:00)
[2020-02-14] MEDS ORDERED: BUMETANIDE 1 MG TABLET PO ONE (15:28)
[2020-02-14] MEDS: ALLOPURINOL 300 MG TABLET PO SCH (16:07)
[2020-02-14] MEDS: LEVALBUTEROL HCL 1.25 MG/3 ML AMPUL IH PRN (18:04)
[2020-02-14] MEDS: LORATADINE 10 MG TABLET PO SCH (20:00)
[2020-02-14] MEDS: ROSUVASTATIN CALCIUM 20 MG TABLET PO SCH (20:00)
[2020-02-14] MEDS: TAMSULOSIN HCL 0.4 MG CAP.SR.24H PO SCH (20:00)
--- NOTE | 2020-02-14 23:38 | PN ---
Subjective - Date and Time Seen Date: 02/14/20 Time: 08:00 Subjective Narrative: Darren is down another 2lbs. US showed ascites. Creatinine is stable. He reports getting more fluid off with bumex. Objective - Vitals Vitals: Last Vital Signs Temp 36.8 C 02/14/20 18:00 Pulse 80 02/14/20 20:00 Resp 18 02/14/20 18:14 BP 124/55 02/14/20 20:00 Pulse Ox 94 02/14/20 18:04 - Abnormal Lab Findings Abnormal Lab Findings: Abnormal Lab Results 02/14/20 02/14/20 02/14/20 Range/Units 06:15 06:15 06:15 WBC 12.5 H (4.0-10.5) K/mm3 RBC 3.16 L (4.7-6.0) M/mm3 Hgb 9.8 L (13.5-18.0) gm/dL Hct 30.3 L (42.0-52.0) % RDW 17.4 H (11.5-14.0) % MPV 11.7 H (8-11.3) fl Monocytes % (Manual) 12 H (0-9) % Eosinophils % (Manual) 4 H (0-3) % Neutrophils # (Manual) 7.3 H (1.3-6.0) K/mm3 Monocytes # (Manual) 1.5 H (0.0-1.0) k/mm3 PT 37.0 H (9.1-10.7) Seconds INR (Anticoag Therapy) 3.94 H (0.92-1.08) INR Potassium 3.0 L (3.4-4.6) mmol/L BUN 99 H (6-23) mg/dL Creatinine 3.66 H (0.4-1.4) mg/dL Est GFR (Non-Af Amer) 17 L (60-130) mL/min BUN/Creatinine Ratio 27.0 H (9.0-21.6) ALT 17 L (19-67) U/L Total Protein 5.9 L (6.2-8.2) gm/dL Albumin 2.6 L (3.4-5.0) gm/dl - Exam Constitutional: Present: Alert, Oriented x3, Cooperative Respiratory: Present: lungs clear, normal breath sounds, no respiratory distress Cardiovascular/Chest: Present: regular rate, rhythm, other - valve click Abdomen: Present: Normal bowel sounds, soft, distended - abdomen edematous Extremity: Present: lower extremity edema Assessment/Plan Plan Narrative: Down another 2lbs continue bumex and metolazone, renal function is stable. Potassium down will replace. - Problems/Diagnosis (1) Anasarca associated with disorder of kidney Problem: Acute (2) Acute on chronic diastolic CHF (congestive heart failure) Problem: Acute (3) Hypokalemia Problem: Acute (4) CKD (chronic kidney disease) stage 4, GFR 15-29 ml/min Problem: Acute
[2020-02-15] MEDS: FORMOTEROL FUMARATE 20 MCG/2 ML VIAL IH SCH ×2 (06:08→18:15)
[2020-02-15] MEDS: BUDESONIDE 0.5 MG/2 ML VIAL.NEB IH SCH ×2 (06:08→18:15)
[2020-02-15 06:29] LABS: Hematocrit 30.1 % (42.0-52.0); Hemoglobin 9.7 gm/dL (13.5-18.0); Mean Cell Volume 93.8 fl (78-100); Mean Corpuscular Hemoglobin 30.2 pg (27-31); Mean Corpuscular Hgb Conc 32.2 g/dl (32-36); Mean Platelet Volume 11.3 fl (8-11.3); NRBC# 0.1 k/mm3 (0-1); Neutrophil # 6.9 K/mm3 (1.3-6.0); Platelet Count 387 K/mm3 (150-450); Red Blood Count 3.21 M/mm3 (4.7-6.0); Red Cell Distribution Width 17.2 % (11.5-14.0); White Blood Count 12.9 K/mm3 (4.0-10.5)
[2020-02-15 06:35] LABS: Prothrombin Time (Patient) 29.3 Seconds (9.1-10.7)
[2020-02-15] MEDS: LEVOTHYROXINE SODIUM 50 MCG TABLET PO SCH (06:38)
[2020-02-15 06:42] LABS: Albumin * 2.6 gm/dl (3.4-5.0); Anion Gap 12.7 mmol/L (6.8-13.8); BUN/Creatinine Ratio 27.5 (9.0-21.6); Bilirubin, Total 0.5 mg/dL (0.0-1.1); Calcium * 8.2 mg/dL (7.9-10.9); Carbon Dioxide 28.9 mmol/L (24-32.6); Potassium 2.6 mmol/L (3.4-4.6); Total Protein 5.9 gm/dL (6.2-8.2)
[2020-02-15 06:49] LABS: INR 3.09 INR (0.92-1.08)
[2020-02-15 07:01] LABS: Total Cells Counted 100
[2020-02-15 07:29] LABS: Eosinophil 4 % (0-3); Lymphocyte 28 % (20-51); Monocyte 7 % (0-9); Neutrophil 61 % (42-75); Neutrophil # 7.9 K/mm3 (1.3-6.0)
[2020-02-15 07:30] LABS: Platelet Estimate Normal (NORMAL); RBC Morphology Normal (NORMAL)
[2020-02-15] MEDS ORDERED: METOLAZONE 5 MG TABLET PO ONE (08:31)
[2020-02-15] MEDS: BUMETANIDE 1 MG TABLET PO SCH (09:19)
[2020-02-15] MEDS: AMIODARONE HCL 200 MG TABLET PO SCH (09:21)
[2020-02-15] MEDS: CARVEDILOL 25 MG TABLET PO SCH ×2 (09:22→20:53)
[2020-02-15] MEDS: FLUOROMETHOLONE LEFTEYE SCH (09:23)
[2020-02-15] MEDS: POTASSIUM CHLORIDE 20 MEQ TABLET.SA PO SCH ×3 (09:24→16:06)
[2020-02-15] MEDS: prednisoLONE ACETATE 50 DROP BTL RIGHTEYE SCH (09:25)
[2020-02-15] MEDS: buPROPion HCL 150 MG TAB.SR.24H PO SCH (09:26)
[2020-02-15] MEDS: YUPELRI PO SCH (09:26)
[2020-02-15] MEDS: ALLOPURINOL 300 MG TABLET PO SCH (14:51)
[2020-02-15] MEDS: WARFARIN SODIUM 2.5 MG TABLET PO SCH (16:06)
[2020-02-15] MEDS ORDERED: BUMETANIDE 1 MG TABLET PO ONE ×2 (16:30→21:46)
[2020-02-15] MEDS: LEVALBUTEROL HCL 1.25 MG/3 ML AMPUL IH PRN (18:15)
[2020-02-15] MEDS: TAMSULOSIN HCL 0.4 MG CAP.SR.24H PO SCH (18:29)
[2020-02-15] MEDS: LORATADINE 10 MG TABLET PO SCH (20:53)
[2020-02-15] MEDS: ROSUVASTATIN CALCIUM 20 MG TABLET PO SCH (20:53)
--- NOTE | 2020-02-15 21:55 | PN ---
Subjective - Date and Time Seen Date: 02/15/20 Time: 08:30 Subjective Narrative: Weight is down another lb, creatinine is stable, potassium is down. No fever, chills, nausea, or vomiting. Objective - Vitals Vitals: Last Vital Signs Temp 36.5 C 02/15/20 20:00 Pulse 89 02/15/20 20:53 Resp 18 02/15/20 20:00 BP 118/48 02/15/20 20:53 Pulse Ox 95 02/15/20 20:00 - Abnormal Lab Findings Abnormal Lab Findings: Abnormal Lab Results 02/15/20 02/15/20 02/15/20 Range/Units 06:22 06:22 06:22 WBC 12.9 H (4.0-10.5) K/mm3 RBC 3.21 L (4.7-6.0) M/mm3 Hgb 9.7 L (13.5-18.0) gm/dL Hct 30.1 L (42.0-52.0) % RDW 17.2 H (11.5-14.0) % Immature Gran # (Auto) 0.05 H (0.000-0.0310) K/mm3 Monocytes % 13.8 H (0.0-9) % Eosinophils % 6.1 H (0.0-3.0) % Eosinophils % (Manual) 4 H (0-3) % Neutrophils # 6.9 H (1.3-6.0) K/mm3 Neutrophils # (Manual) 7.9 H (1.3-6.0) K/mm3 Lymphocytes # (Manual) 3.6 H (1.5-3.5) k/mm3 Monocytes # 1.8 H (0.0-1.0) k/mm3 Eosinophils # 0.8 H (0.0-0.7) k/mm3 PT 29.3 H (9.1-10.7) Seconds INR (Anticoag Therapy) 3.09 H (0.92-1.08) INR Potassium 2.6 L (3.4-4.6) mmol/L BUN 104 H (6-23) mg/dL Creatinine 3.78 H (0.4-1.4) mg/dL Est GFR (Non-Af Amer) 17 L (60-130) mL/min BUN/Creatinine Ratio 27.5 H (9.0-21.6) ALT 17 L (19-67) U/L Total Protein 5.9 L (6.2-8.2) gm/dL Albumin 2.6 L (3.4-5.0) gm/dl - Exam Constitutional: Present: Alert, Oriented x3, Cooperative ENT Exam: Present: hearing grossly normal Respiratory: Present: lungs clear, normal breath sounds, no respiratory distress Cardiovascular/Chest: Present: regular rate, rhythm, edema - pitting edema from abdomen to feet Abdomen: Present: Normal bowel sounds, distended Assessment/Plan Plan Narrative: Continue metolazone and bumex. Fluid is gradually coming off and creatinine stable. Potassium has dropped further will increase potassium replacement. - Problems/Diagnosis (1) Anasarca associated with disorder of kidney Problem: Acute (2) Acute on chronic diastolic CHF (congestive heart failure) Problem: Acute (3) Hypokalemia Problem: Acute (4) CKD (chronic kidney disease) stage 4, GFR 15-29 ml/min Problem: Acute
[2020-02-16] MEDS: FORMOTEROL FUMARATE 20 MCG/2 ML VIAL IH SCH ×2 (06:04→18:12)
[2020-02-16] MEDS: BUDESONIDE 0.5 MG/2 ML VIAL.NEB IH SCH ×2 (06:04→18:12)
[2020-02-16 06:16] LABS: Hematocrit 29.7 % (42.0-52.0); Hemoglobin 9.8 gm/dL (13.5-18.0); Mean Platelet Volume 11.7 fl (8-11.3); Platelet Count 397 K/mm3 (150-450); Red Blood Count 3.16 M/mm3 (4.7-6.0); Red Cell Distribution Width 17.4 % (11.5-14.0); White Blood Count 13.4 K/mm3 (4.0-10.5)
[2020-02-16 06:18] LABS: Total Cells Counted 100
[2020-02-16 06:25] LABS: Prothrombin Time (Patient) 24.8 Seconds (9.1-10.7)
[2020-02-16 06:31] LABS: Albumin * 2.5 gm/dl (3.4-5.0); Anion Gap 11.5 mmol/L (6.8-13.8); BUN/Creatinine Ratio 27.9 (9.0-21.6); Bilirubin, Total 0.4 mg/dL (0.0-1.1); Ca. Corrected For Albumin 8.8 mg/dL (8.4-10.2); Calcium * 7.9 mg/dL (7.9-10.9); Carbon Dioxide 29.2 mmol/L (24-32.6); Potassium 2.7 mmol/L (3.4-4.6); Total Protein 5.8 gm/dL (6.2-8.2)
[2020-02-16 06:40] LABS: Atypical (Reactive) Lymph 2 % (0-2); Eosinophil 3 % (0-3); Lymphocyte 31 % (20-51); Monocyte 8 % (0-9); Neutrophil 56 % (42-75); Neutrophil # 7.5 K/mm3 (1.3-6.0)
[2020-02-16 06:41] LABS: Anisocytosis 2+; Platelet Estimate Normal (NORMAL); Target Cells 1+
[2020-02-16 06:44] LABS: INR 2.6 INR (0.92-1.08)
[2020-02-16] MEDS: LEVOTHYROXINE SODIUM 50 MCG TABLET PO SCH (06:59)
[2020-02-16] MEDS: CARVEDILOL 25 MG TABLET PO SCH ×2 (09:03→20:17)
[2020-02-16] MEDS: buPROPion HCL 150 MG TAB.SR.24H PO SCH (09:03)
[2020-02-16] MEDS: POTASSIUM CHLORIDE 20 MEQ TABLET.SA PO SCH ×3 (09:03→16:17)
[2020-02-16] MEDS: BUMETANIDE 1 MG TABLET PO SCH ×3 (09:03→18:59)
[2020-02-16] MEDS: AMIODARONE HCL 200 MG TABLET PO SCH (09:04)
[2020-02-16] MEDS: prednisoLONE ACETATE 50 DROP BTL RIGHTEYE SCH (09:04)
[2020-02-16] MEDS: YUPELRI PO SCH (09:04)
[2020-02-16] MEDS: FLUOROMETHOLONE LEFTEYE SCH (09:04)
[2020-02-16] MEDS ORDERED: METOLAZONE 5 MG TABLET PO ONE (09:20)
--- NOTE | 2020-02-16 10:27 | PN ---
Subjective - Date and Time Seen Date: 02/16/20 Time: 10:17 Subjective Narrative: Weight down about 5lbs in the last 24 hours. He doesn't notice much change in edema. No fever, chills, nausea, or vomiting. No new concerns. Objective - Vitals Vitals: Last Vital Signs Temp 36.8 C 02/16/20 06:28 Pulse 80 02/16/20 09:03 Resp 20 02/16/20 06:28 BP 120/46 02/16/20 09:03 Pulse Ox 94 02/16/20 06:28 - Abnormal Lab Findings Abnormal Lab Findings: Abnormal Lab Results 02/16/20 02/16/20 02/16/20 Range/Units 05:55 05:55 05:55 WBC 13.4 H (4.0-10.5) K/mm3 RBC 3.16 L (4.7-6.0) M/mm3 Hgb 9.8 L (13.5-18.0) gm/dL Hct 29.7 L (42.0-52.0) % RDW 17.4 H (11.5-14.0) % MPV 11.7 H (8-11.3) fl Neutrophils # (Manual) 7.5 H (1.3-6.0) K/mm3 Lymphocytes # (Manual) 4.2 H (1.5-3.5) k/mm3 Monocytes # (Manual) 1.1 H (0.0-1.0) k/mm3 PT 24.8 H (9.1-10.7) Seconds INR (Anticoag Therapy) 2.60 H (0.92-1.08) INR Potassium 2.7 L (3.4-4.6) mmol/L BUN 106 H (6-23) mg/dL Creatinine 3.80 H (0.4-1.4) mg/dL Est GFR (Non-Af Amer) 17 L (60-130) mL/min BUN/Creatinine Ratio 27.9 H (9.0-21.6) ALT 17 L (19-67) U/L Total Protein 5.8 L (6.2-8.2) gm/dL Albumin 2.5 L (3.4-5.0) gm/dl - Exam Constitutional: Present: Alert, Oriented x3, Cooperative ENT Exam: Present: hearing grossly normal Respiratory: Present: lungs clear, normal breath sounds Cardiovascular/Chest: Present: regular rate, rhythm, other - valve click Abdomen: Present: Normal bowel sounds, firm - edematous to mid abdomen Extremity: Present: lower extremity edema - 4+ Assessment/Plan Plan Narrative: Overall stable. Weight is down another 5lbs. He is still extremely edematous, weak. Will having nursing get on tubigrips and SCDs when in bed to manually get more fluid out. Continue bumex and metalozone. Potassium is 2.7 today, up from 2.6. It is currently 40meq TID and appears to be balanced with the diuretics. No other changes today. - Problems/Diagnosis (1) Anasarca associated with disorder of kidney Problem: Acute (2) Acute on chronic diastolic CHF (congestive heart failure) Problem: Acute (3) Hypokalemia Problem: Acute (4) CKD (chronic kidney disease) stage 4, GFR 15-29 ml/min Problem: Acute
[2020-02-16] MEDS: ACETAMINOPHEN 500 MG TABLET PO PRN (12:04)
[2020-02-16] MEDS: ZINC OXIDE 60 APPL TUBE TP PRN (12:06)
[2020-02-16] MEDS: ALLOPURINOL 300 MG TABLET PO SCH (14:03)
[2020-02-16] MEDS: WARFARIN SODIUM 2.5 MG TABLET PO SCH (16:16)
[2020-02-16] MEDS: TAMSULOSIN HCL 0.4 MG CAP.SR.24H PO SCH (18:59)
[2020-02-16] MEDS: LORATADINE 10 MG TABLET PO SCH (20:17)
[2020-02-16] MEDS: ROSUVASTATIN CALCIUM 20 MG TABLET PO SCH (20:17)
[2020-02-17] MEDS: FORMOTEROL FUMARATE 20 MCG/2 ML VIAL IH SCH ×2 (06:11→18:17)
[2020-02-17] MEDS: BUDESONIDE 0.5 MG/2 ML VIAL.NEB IH SCH ×2 (06:11→18:17)
[2020-02-17] MEDS: LEVOTHYROXINE SODIUM 50 MCG TABLET PO SCH (07:27)
[2020-02-17 08:24] LABS: INR 2.73 INR (0.92-1.08)
[2020-02-17] MEDS: BUMETANIDE 1 MG TABLET PO SCH ×3 (09:35→19:22)
[2020-02-17] MEDS: POTASSIUM CHLORIDE 20 MEQ TABLET.SA PO SCH ×3 (09:35→16:44)
[2020-02-17] MEDS: prednisoLONE ACETATE 50 DROP BTL RIGHTEYE SCH (09:36)
[2020-02-17] MEDS: AMIODARONE HCL 200 MG TABLET PO SCH (09:36)
[2020-02-17] MEDS: CARVEDILOL 25 MG TABLET PO SCH ×2 (09:36→20:54)
[2020-02-17] MEDS: FLUOROMETHOLONE LEFTEYE SCH (09:36)
[2020-02-17] MEDS: YUPELRI PO SCH (09:36)
[2020-02-17] MEDS: buPROPion HCL 150 MG TAB.SR.24H PO SCH (09:36)
[2020-02-17 10:33] LABS: Hematocrit 31.8 % (42.0-52.0); Hemoglobin 10.2 gm/dL (13.5-18.0); Mean Cell Volume 95.5 fl (78-100); Mean Corpuscular Hemoglobin 30.6 pg (27-31); Mean Corpuscular Hgb Conc 32.1 g/dl (32-36); Mean Platelet Volume 12.1 fl (8-11.3); Platelet Count 400 K/mm3 (150-450); Red Blood Count 3.33 M/mm3 (4.7-6.0); Red Cell Distribution Width 17.4 % (11.5-14.0); White Blood Count 13.4 K/mm3 (4.0-10.5)
[2020-02-17 10:36] LABS: Total Cells Counted 100
[2020-02-17 10:45] LABS: Albumin * 2.8 gm/dl (3.4-5.0); Anion Gap 15.1 mmol/L (6.8-13.8); BUN/Creatinine Ratio 28.1 (9.0-21.6); Bilirubin, Total 0.5 mg/dL (0.0-1.1); Ca. Corrected For Albumin 9.1 mg/dL (8.4-10.2); Calcium * 8.5 mg/dL (7.9-10.9); Carbon Dioxide 28.5 mmol/L (24-32.6); Potassium 3.6 mmol/L (3.4-4.6); Total Protein 5.7 gm/dL (6.2-8.2)
[2020-02-17 10:52] LABS: Anisocytosis 1+; Eosinophil 7 % (0-3); Lymphocyte 29 % (20-51); Monocyte 13 % (0-9); Neutrophil 51 % (42-75); Neutrophil # 6.8 K/mm3 (1.3-6.0); Platelet Estimate Normal (NORMAL); RBC Morphology Normal (NORMAL)
[2020-02-17] MEDS: ALLOPURINOL 300 MG TABLET PO SCH (14:38)
[2020-02-17] MEDS: WARFARIN SODIUM 2.5 MG TABLET PO SCH (16:44)
[2020-02-17] MEDS: TAMSULOSIN HCL 0.4 MG CAP.SR.24H PO SCH (19:22)
[2020-02-17] MEDS: ROSUVASTATIN CALCIUM 20 MG TABLET PO SCH (20:54)
[2020-02-17] MEDS: LORATADINE 10 MG TABLET PO SCH (21:24)
--- NOTE | 2020-02-17 23:33 | PN ---
Subjective - Date and Time Seen Date: 02/17/20 Time: 10:30 Subjective Narrative: Darren reports improved swelling. His left hand and legs are less swollen. His abdominal pain is resolved. Creatinine a little higher at 3.9 today. Weight down another lb. Objective - Vitals Vitals: Last Vital Signs Temp 36.7 C 02/17/20 22:20 Pulse 80 02/17/20 22:20 Resp 16 02/17/20 22:20 BP 119/58 02/17/20 22:20 Pulse Ox 94 02/17/20 22:20 - Abnormal Lab Findings Abnormal Lab Findings: Abnormal Lab Results 02/17/20 02/17/20 02/17/20 Range/Units 07:31 07:31 07:31 WBC 13.4 H (4.0-10.5) K/mm3 RBC 3.33 L (4.7-6.0) M/mm3 Hgb 10.2 L (13.5-18.0) gm/dL Hct 31.8 L (42.0-52.0) % RDW 17.4 H (11.5-14.0) % MPV 12.1 H (8-11.3) fl Monocytes % (Manual) 13 H (0-9) % Eosinophils % (Manual) 7 H (0-3) % Neutrophils # (Manual) 6.8 H (1.3-6.0) K/mm3 Lymphocytes # (Manual) 3.9 H (1.5-3.5) k/mm3 Monocytes # (Manual) 1.7 H (0.0-1.0) k/mm3 Eosinophils # (Manual) 0.9 H (0.0-0.7) k/mm3 PT 26.0 H (9.1-10.7) Seconds INR (Anticoag Therapy) 2.73 H (0.92-1.08) INR Sodium 143 H (132-142) mmol/L Plasma Sodium 143 H (130-142) mmol/L Anion Gap 15.1 H (6.8-13.8) mmol/L BUN 112 H (6-23) mg/dL Creatinine 3.98 H (0.4-1.4) mg/dL Est GFR (Non-Af Amer) 16 L (60-130) mL/min BUN/Creatinine Ratio 28.1 H (9.0-21.6) Total Protein 5.7 L (6.2-8.2) gm/dL Albumin 2.8 L (3.4-5.0) gm/dl - Exam Constitutional: Present: Alert, Oriented x3, Cooperative ENT Exam: Present: hearing grossly normal Respiratory: Present: lungs clear, normal breath sounds Cardiovascular/Chest: Present: regular rate, rhythm, other - valve click Abdomen: Present: Normal bowel sounds, firm - edematous Extremity: Present: lower extremity edema - 3+ Skin Exam: Present: normal color, warm/dry, no cyanosis Assessment/Plan Plan Narrative: Potassium back to normal. Creatinine elevated a little higher, will hold on any more metolazone today. Continue bumex 4mg PO TID. Continue potassium replacement. Potentially able to discharge in the next 2-3 days if creatinine is stable and weight continues to drop. - Problems/Diagnosis (1) Anasarca associated with disorder of kidney Problem: Acute (2) Acute on chronic diastolic CHF (congestive heart failure) Problem: Acute (3) Hypokalemia Problem: Acute (4) CKD (chronic kidney disease) stage 4, GFR 15-29 ml/min Problem: Acute
[2020-02-18] MEDS: ACETAMINOPHEN 500 MG TABLET PO PRN (00:54)
[2020-02-18] MEDS: FORMOTEROL FUMARATE 20 MCG/2 ML VIAL IH SCH ×2 (06:04→18:12)
[2020-02-18] MEDS: BUDESONIDE 0.5 MG/2 ML VIAL.NEB IH SCH ×2 (06:04→18:12)
[2020-02-18 06:20] LABS: Hematocrit 30.4 % (42.0-52.0); Hemoglobin 9.7 gm/dL (13.5-18.0); Mean Cell Volume 93.5 fl (78-100); Mean Corpuscular Hemoglobin 29.8 pg (27-31); Mean Corpuscular Hgb Conc 31.9 g/dl (32-36); Mean Platelet Volume 11.1 fl (8-11.3); Platelet Count 381 K/mm3 (150-450); Red Blood Count 3.25 M/mm3 (4.7-6.0); Red Cell Distribution Width 17.3 % (11.5-14.0); White Blood Count 13.6 K/mm3 (4.0-10.5)
[2020-02-18 06:23] LABS: Total Cells Counted 100
[2020-02-18 06:28] LABS: Prothrombin Time (Patient) 23.5 Seconds (9.1-10.7)
[2020-02-18 06:29] LABS: INR 2.46 INR (0.92-1.08)
[2020-02-18 06:39] LABS: Albumin * 2.5 gm/dl (3.4-5.0); Anion Gap 13.7 mmol/L (6.8-13.8); BUN/Creatinine Ratio 29.6 (9.0-21.6); Bilirubin, Total 0.4 mg/dL (0.0-1.1); Ca. Corrected For Albumin 9.4 mg/dL (8.4-10.2); Calcium * 8.5 mg/dL (7.9-10.9); Carbon Dioxide 29.4 mmol/L (24-32.6); Potassium 3.1 mmol/L (3.4-4.6); Total Protein 5.8 gm/dL (6.2-8.2)
[2020-02-18 06:46] LABS: Eosinophil 7 % (0-3); Lymphocyte 31 % (20-51); Monocyte 10 % (0-9); Neutrophil 52 % (42-75); Neutrophil # 7.1 K/mm3 (1.3-6.0)
[2020-02-18 06:47] LABS: Anisocytosis 1+; Platelet Estimate Normal (NORMAL)
[2020-02-18] MEDS: LEVOTHYROXINE SODIUM 50 MCG TABLET PO SCH (07:40)
[2020-02-18] MEDS: YUPELRI PO SCH (08:58)
[2020-02-18] MEDS: FLUOROMETHOLONE LEFTEYE SCH (09:16)
[2020-02-18] MEDS: prednisoLONE ACETATE 50 DROP BTL RIGHTEYE SCH (09:16)
[2020-02-18] MEDS: CARVEDILOL 25 MG TABLET PO SCH ×2 (09:17→21:27)
[2020-02-18] MEDS: POTASSIUM CHLORIDE 20 MEQ TABLET.SA PO SCH ×3 (09:17→17:34)
[2020-02-18] MEDS: buPROPion HCL 150 MG TAB.SR.24H PO SCH (09:17)
[2020-02-18] MEDS: AMIODARONE HCL 200 MG TABLET PO SCH (09:17)
[2020-02-18] MEDS: BUMETANIDE 1 MG TABLET PO SCH ×3 (09:19→18:29)
[2020-02-18 12:05] LABS: Albumin * 2.7 gm/dl (3.4-5.0); BUN/Creatinine Ratio 30.7 (9.0-21.6); Bilirubin, Total 0.4 mg/dL (0.0-1.1); Ca. Corrected For Albumin 8.5 mg/dL (8.4-10.2); Calcium * 7.8 mg/dL (7.9-10.9); Carbon Dioxide 29.9 mmol/L (24-32.6); Potassium 2.9 mmol/L (3.4-4.6); Total Protein 6.2 gm/dL (6.2-8.2); Uric Acid 8.3 mg/dL (2.6-7.2)
[2020-02-18] MEDS: predniSONE 20 MG TABLET PO SCH (13:49)
[2020-02-18] MEDS: ALLOPURINOL 100 MG TABLET PO SCH ×2 (13:51→14:37)
--- NOTE | 2020-02-18 15:43 | PN ---
Subjective - Date and Time Seen Date: 02/18/20 Time: 14:57 Subjective Narrative: Darren reports left ankle pain that is too painful to bear weight. Labs show elevated uric acid, creatinine is stable, potassium is critically low at 2.9. No abdominal pain today. Weight is down another pound. Objective - Vitals Vitals: Last Vital Signs Temp 36.5 C 02/18/20 14:00 Pulse 80 02/18/20 14:00 Resp 20 02/18/20 14:00 BP 124/57 02/18/20 14:00 Pulse Ox 94 02/18/20 14:00 - Abnormal Lab Findings Abnormal Lab Findings: Abnormal Lab Results 02/18/20 02/18/20 02/18/20 Range/Units 06:10 06:10 06:10 WBC 13.6 H (4.0-10.5) K/mm3 RBC 3.25 L (4.7-6.0) M/mm3 Hgb 9.7 L (13.5-18.0) gm/dL Hct 30.4 L (42.0-52.0) % MCHC 31.9 L (32-36) g/dl RDW 17.3 H (11.5-14.0) % Monocytes % (Manual) 10 H (0-9) % Eosinophils % (Manual) 7 H (0-3) % Neutrophils # (Manual) 7.1 H (1.3-6.0) K/mm3 Lymphocytes # (Manual) 4.2 H (1.5-3.5) k/mm3 Monocytes # (Manual) 1.4 H (0.0-1.0) k/mm3 Eosinophils # (Manual) 1.0 H (0.0-0.7) k/mm3 PT 23.5 H (9.1-10.7) Seconds INR (Anticoag Therapy) 2.46 H (0.92-1.08) INR Sodium 143 H (132-142) mmol/L Plasma Sodium 143 H (130-142) mmol/L Potassium 3.1 L (3.4-4.6) mmol/L Anion Gap (6.8-13.8) mmol/L BUN 114 H (6-23) mg/dL Creatinine 3.85 H (0.4-1.4) mg/dL Est GFR (Non-Af Amer) 16 L (60-130) mL/min BUN/Creatinine Ratio 29.6 H (9.0-21.6) Random Glucose (70-110) mg/dL Uric Acid (2.6-7.2) mg/dL Calcium (7.9-10.9) mg/dL Total Protein 5.8 L (6.2-8.2) gm/dL Albumin 2.5 L (3.4-5.0) gm/dl 02/18/20 Range/Units 11:47 WBC (4.0-10.5) K/mm3 RBC (4.7-6.0) M/mm3 Hgb (13.5-18.0) gm/dL Hct (42.0-52.0) % MCHC (32-36) g/dl RDW (11.5-14.0) % Monocytes % (Manual) (0-9) % Eosinophils % (Manual) (0-3) % Neutrophils # (Manual) (1.3-6.0) K/mm3 Lymphocytes # (Manual) (1.5-3.5) k/mm3 Monocytes # (Manual) (0.0-1.0) k/mm3 Eosinophils # (Manual) (0.0-0.7) k/mm3 PT (9.1-10.7) Seconds INR (Anticoag Therapy) (0.92-1.08) INR Sodium 143 H (132-142) mmol/L Plasma Sodium 143 H (130-142) mmol/L Potassium 2.9 L (3.4-4.6) mmol/L Anion Gap 14.0 H (6.8-13.8) mmol/L BUN 116 H (6-23) mg/dL Creatinine 3.78 H (0.4-1.4) mg/dL Est GFR (Non-Af Amer) 17 L (60-130) mL/min BUN/Creatinine Ratio 30.7 H (9.0-21.6) Random Glucose 120 H (70-110) mg/dL Uric Acid 8.3 H (2.6-7.2) mg/dL Calcium 7.8 L (7.9-10.9) mg/dL Total Protein (6.2-8.2) gm/dL Albumin 2.7 L (3.4-5.0) gm/dl - Exam Constitutional: Present: Alert, Oriented x3, Cooperative ENT Exam: Present: hearing grossly normal Respiratory: Present: lungs clear, normal breath sounds Cardiovascular/Chest: Present: regular rate, rhythm, no murmur Abdomen: Present: Normal bowel sounds, nontender, firm - edematous Extremity: Present: lower extremity edema - 3+ Appearance: Present: appropriate appearance, appropriate insight Eye contact: Present: cooperative, good eye contact, normal speech Assessment/Plan Plan Narrative: His creatinine is stable and is likely at a new baseline. I am working to make sure his renal function remains stable and his fluid status is stable, along with potassium. His potassium is critically low. Will continue potassium replacement. I believe it is still effected from the metolazone previously given so I will not adjust the potassium dose. Will continue bumex 4mg TID this appears to have his fluid trending down and his creatinine is stable. I only need to balance his potassium before he is safe for discharge. 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 Increasing allopurinol for chronic treatment and starting prednisone for acute treatment. Anticipate discharge to [facility] in 2 days. - Problems/Diagnosis (1) Anasarca associated with disorder of kidney Problem: Acute (2) Acute on chronic diastolic CHF (congestive heart failure) Problem: Acute (3) Hypokalemia Problem: Acute (4) CKD (chronic kidney disease) stage 4, GFR 15-29 ml/min Problem: Chronic (5) Acute gout due to renal impairment involving ankle Problem: Acute
[2020-02-18] MEDS: WARFARIN SODIUM 2.5 MG TABLET PO SCH (17:34)
[2020-02-18] MEDS: LEVALBUTEROL HCL 1.25 MG/3 ML AMPUL IH PRN (18:13)
[2020-02-18] MEDS: TAMSULOSIN HCL 0.4 MG CAP.SR.24H PO SCH (18:29)
[2020-02-18] MEDS: LORATADINE 10 MG TABLET PO SCH (21:27)
[2020-02-18] MEDS: ROSUVASTATIN CALCIUM 20 MG TABLET PO SCH (21:27)
[2020-02-19] MEDS: LEVALBUTEROL HCL 1.25 MG/3 ML AMPUL IH PRN ×2 (06:03→17:58)
[2020-02-19] MEDS: BUDESONIDE 0.5 MG/2 ML VIAL.NEB IH SCH ×3 (06:03→17:59)
[2020-02-19] MEDS: FORMOTEROL FUMARATE 20 MCG/2 ML VIAL IH SCH ×3 (06:03→18:13)
[2020-02-19 06:19] LABS: Hematocrit 30.2 % (42.0-52.0); Hemoglobin 9.9 gm/dL (13.5-18.0); Mean Cell Volume 93.8 fl (78-100); Mean Corpuscular Hemoglobin 30.7 pg (27-31); Mean Corpuscular Hgb Conc 32.8 g/dl (32-36); Mean Platelet Volume 10.9 fl (8-11.3); Neutrophil # 7.4 K/mm3 (1.3-6.0); Neutrophil % 84.9 % (42-75.0); Platelet Count 385 K/mm3 (150-450); Red Blood Count 3.22 M/mm3 (4.7-6.0); Red Cell Distribution Width 17.1 % (11.5-14.0); White Blood Count 8.7 K/mm3 (4.0-10.5)
[2020-02-19 06:27] LABS: Prothrombin Time (Patient) 24.5 Seconds (9.1-10.7)
[2020-02-19 06:33] LABS: Albumin * 2.5 gm/dl (3.4-5.0); Anion Gap 11.6 mmol/L (6.8-13.8); BUN/Creatinine Ratio 30.2 (9.0-21.6); Bilirubin, Total 0.4 mg/dL (0.0-1.1); Ca. Corrected For Albumin 9.1 mg/dL (8.4-10.2); Calcium * 8.2 mg/dL (7.9-10.9); Carbon Dioxide 31.5 mmol/L (24-32.6); Potassium 3.1 mmol/L (3.4-4.6); Total Protein 6.1 gm/dL (6.2-8.2)
[2020-02-19 06:36] LABS: INR 2.57 INR (0.92-1.08)
[2020-02-19] MEDS: LEVOTHYROXINE SODIUM 50 MCG TABLET PO SCH (06:44)
[2020-02-19] MEDS: BUMETANIDE 1 MG TABLET PO SCH ×3 (09:22→18:18)
[2020-02-19] MEDS: CARVEDILOL 25 MG TABLET PO SCH ×2 (09:23→21:10)
[2020-02-19] MEDS: prednisoLONE ACETATE 50 DROP BTL RIGHTEYE SCH (09:23)
[2020-02-19] MEDS: AMIODARONE HCL 200 MG TABLET PO SCH (09:23)
[2020-02-19] MEDS: FLUOROMETHOLONE LEFTEYE SCH (09:23)
[2020-02-19] MEDS: POTASSIUM CHLORIDE 20 MEQ TABLET.SA PO SCH ×3 (09:23→17:01)
[2020-02-19] MEDS: YUPELRI PO SCH (09:24)
[2020-02-19] MEDS: buPROPion HCL 150 MG TAB.SR.24H PO SCH (09:24)
[2020-02-19] MEDS: predniSONE 20 MG TABLET PO SCH (09:24)
[2020-02-19] MEDS: ZINC OXIDE 60 APPL TUBE TP PRN (12:46)
[2020-02-19] MEDS: ALLOPURINOL 100 MG TABLET PO SCH (14:21)
[2020-02-19] MEDS: WARFARIN SODIUM 2.5 MG TABLET PO SCH (17:01)
[2020-02-19] MEDS: TAMSULOSIN HCL 0.4 MG CAP.SR.24H PO SCH (18:18)
[2020-02-19] MEDS: ROSUVASTATIN CALCIUM 20 MG TABLET PO SCH (21:09)
[2020-02-19] MEDS: LORATADINE 10 MG TABLET PO SCH (21:11)
--- NOTE | 2020-02-19 23:32 | PN ---
Subjective - Date and Time Seen Date: 02/19/20 Time: 08:15 Subjective Narrative: Darren reports another drop in weight and feeling less swollen today. Potassium is improved to 3.1 and creatinine is stable. No fever, chills, nausea, or vomiting. Objective - Vitals Vitals: Last Vital Signs Temp 36.5 C 02/19/20 21:00 Pulse 79 02/19/20 23:20 Resp 18 02/19/20 23:20 BP 135/61 02/19/20 21:10 Pulse Ox 94 02/19/20 23:20 - Abnormal Lab Findings Abnormal Lab Findings: Abnormal Lab Results 02/19/20 02/19/20 02/19/20 Range/Units 06:00 06:10 06:10 RBC 3.22 L (4.7-6.0) M/mm3 Hgb 9.9 L (13.5-18.0) gm/dL Hct 30.2 L (42.0-52.0) % RDW 17.1 H (11.5-14.0) % Immature Gran % (Auto) 0.70 H (0.001-0.429) % Immature Gran # (Auto) 0.06 H (0.000-0.0310) K/mm3 Neutrophils % 84.9 H (42-75.0) % Lymphocytes % 12.0 L (20-51) % Neutrophils # 7.4 H (1.3-6.0) K/mm3 Lymphocytes # 1.04 L (1.5-3.5) k/mm3 PT 24.5 H (9.1-10.7) Seconds INR (Anticoag Therapy) 2.57 H (0.92-1.08) INR Potassium 3.1 L (3.4-4.6) mmol/L BUN 114 H (6-23) mg/dL Creatinine 3.78 H (0.4-1.4) mg/dL Est GFR (Non-Af Amer) 17 L (60-130) mL/min BUN/Creatinine Ratio 30.2 H (9.0-21.6) Random Glucose 145 H (70-110) mg/dL Total Protein 6.1 L (6.2-8.2) gm/dL Albumin 2.5 L (3.4-5.0) gm/dl - Exam Constitutional: Present: Alert, Oriented x3, Cooperative ENT Exam: Present: hearing grossly normal Respiratory: Present: lungs clear, normal breath sounds Cardiovascular/Chest: Present: regular rate, rhythm, other - valve click Abdomen: Present: Normal bowel sounds, soft - some edema in lower abdomen Extremity: Present: lower extremity edema - 3+ Skin Exam: Present: normal color, warm/dry, no cyanosis Appearance: Present: appropriate appearance, appropriate insight Eye contact: Present: cooperative, good eye contact, normal speech Thoughts: Present: normal thought pattern, no apparent hallucination Assessment/Plan Plan Narrative: Fluid status continues to improve slowly. Renal function is stable. Potassium is stable. No changes today. Will plan to discharge to [facility] tomorrow if potassium remains above critical and no significant changes in his progress. - Problems/Diagnosis (1) Anasarca associated with disorder of kidney Problem: Acute (2) Acute on chronic diastolic CHF (congestive heart failure) Problem: Acute (3) Hypokalemia Problem: Acute (4) CKD (chronic kidney disease) stage 4, GFR 15-29 ml/min Problem: Chronic (5) Acute gout due to renal impairment involving ankle Problem: Acute
[2020-02-20] MEDS: BUDESONIDE 0.5 MG/2 ML VIAL.NEB IH SCH (06:01)
[2020-02-20] MEDS: FORMOTEROL FUMARATE 20 MCG/2 ML VIAL IH SCH (06:01)
[2020-02-20] MEDS: LEVALBUTEROL HCL 1.25 MG/3 ML AMPUL IH PRN (06:01)
[2020-02-20] MEDS: LEVOTHYROXINE SODIUM 50 MCG TABLET PO SCH (06:47)
[2020-02-20] MEDS: BUMETANIDE 1 MG TABLET PO SCH ×2 (08:25→13:27)
[2020-02-20] MEDS: AMIODARONE HCL 200 MG TABLET PO SCH (08:26)
[2020-02-20] MEDS: POTASSIUM CHLORIDE 20 MEQ TABLET.SA PO SCH ×2 (08:26→13:27)
[2020-02-20] MEDS: FLUOROMETHOLONE LEFTEYE SCH (08:26)
[2020-02-20] MEDS: prednisoLONE ACETATE 50 DROP BTL RIGHTEYE SCH (08:26)
[2020-02-20] MEDS: CARVEDILOL 25 MG TABLET PO SCH (08:26)
[2020-02-20] MEDS: buPROPion HCL 150 MG TAB.SR.24H PO SCH (08:27)
[2020-02-20] MEDS: YUPELRI PO SCH (08:27)
[2020-02-20] MEDS: predniSONE 20 MG TABLET PO SCH (08:27)
[2020-02-20 08:50] LABS: Hematocrit 30.3 % (42.0-52.0); Mean Cell Volume 93.2 fl (78-100); Mean Corpuscular Hemoglobin 30.8 pg (27-31); Mean Platelet Volume 11.4 fl (8-11.3); NRBC# 0.1 k/mm3 (0-1); Neutrophil # 11.2 K/mm3 (1.3-6.0); Neutrophil % 79.9 % (42-75.0); Platelet Count 391 K/mm3 (150-450); Red Blood Count 3.25 M/mm3 (4.7-6.0)
[2020-02-20 09:03] LABS: INR 3.12 INR (0.92-1.08); Prothrombin Time (Patient) 29.6 Seconds (9.1-10.7)
[2020-02-20 09:16] LABS: Albumin * 2.9 gm/dl (3.4-5.0); Anion Gap 14.3 mmol/L (6.8-13.8); BUN/Creatinine Ratio 31.4 (9.0-21.6); Bilirubin, Total 0.4 mg/dL (0.0-1.1); Ca. Corrected For Albumin 9.2 mg/dL (8.4-10.2); Calcium * 8.6 mg/dL (7.9-10.9); Carbon Dioxide 30.9 mmol/L (24-32.6); Potassium 3.2 mmol/L (3.4-4.6); Total Protein 6.6 gm/dL (6.2-8.2)
--- NOTE | 2020-02-20 11:08 | DS ---
(1) Anasarca associated with disorder of kidney Problem: Acute (2) Acute on chronic diastolic CHF (congestive heart failure) Problem: Acute (3) Hypokalemia Problem: Acute (4) CKD (chronic kidney disease) stage 4, GFR 15-29 ml/min Problem: Chronic (5) Acute gout due to renal impairment involving ankle Problem: Acute Qualifiers: Laterality: left Qualified Code(s): M10.372 - Gout due to renal impairment, left ankle and foot Date of Discharge:: 02/20/20 Hospital Course: Darren was admitted with severe weight gain with anasarca secondary to renal failure. He had significant edema from feet to abdomen with skin compromise. He was initially started on IV lasix but was not seeing significant improvement. I did a trial on bumex and he seemed to respond better. He was given IV bumex initially until we lost his IV and he requested trying oral bumex. I used oral bumex 4mg TID and daily metolazone 5mg for a few days during his course to remove about 10-15lbs of fluid. His creatinine was monitored daily and remained stable near 3.6. He had hypokalemia that was replaced and potassium was adjusted to balance diuretics. Urine protein level was normal. He developed gout in his left ankle due to diuretics. He was given prednisone and allopurinol was increased. He will be discharged to [facility] today. He will continue on his current medications as he appears to be well balanced. He will have a repeat CMP on Tuesday along with INR. I will likely monitor renal function and electrolytes twice a week over the next couple weeks to make sure everything remains stable. He will follow up with Dr. Prather (nephrology). Procedures Performed: none Results and Findings: Lab Pending Results 02/11/20 13:10: Urine Color Yellow, Urine Appearance Clear, Urine pH 5.5, Ur Specific [place] 1.015, Urine Protein Negative, Urine Glucose (UA) Negative, Urine Ketones Negative, Urine Blood Negative, Urine Nitrate Negative, Urine Bilirubin Negative, Urine Urobilinogen Normal, Ur Leukocyte Esterase Negative, Urine RBC None seen, Urine WBC None seen, Ur Epithelial Cells 0-5, Urine Bacteria Trace, Hyaline Casts 0-5 H, Urine Culture Comments No culture indicated 02/11/20 13:37: WBC 13.9 H, RBC 3.39 L, Hgb 10.5 L, Hct 32.6 L, MCV 96.2, MCH 31.0, MCHC 32.2, RDW 18.2 H, Plt Count 390, MPV 11.7 H, Neutrophils % (Manual) 52, Band Neuts % (Manual) 1, Lymphocytes % (Manual) 19 L, Monocytes % (Manual) 16 H, Eosinophils % (Manual) 6 H, Basophils % (Manual) 1, Neutrophils # (Manual) 7.2 H, Lymphocytes # (Manual) 2.6, Monocytes # (Manual) 2.2 H, Eosinophils # (Manual) 0.8 H, Basophils # (Manual) 0.1, Atypic/Reactive Lymphs 5 H, Platelet Estimate Normal, Hypochromasia 1+, Anisocytosis 1+, Microcytosis 1+, Macrocytosis Trace, Target Cells 1+ 02/11/20 13:37: Sodium 142, Plasma Sodium 142, Potassium 3.8, Chloride 106, Carbon Dioxide 23.8 L, Anion Gap 16.0 H, BUN 98 H, Creatinine 3.75 H, Est GFR (Non-Af Amer) 17 L, BUN/Creatinine Ratio 26.1 H, Random Glucose 109, Calcium 8.5, Calcium Adj for Albumin 9.2, Total Bilirubin 0.5, AST 22, ALT 17 L, Alkaline Phosphatase 116, B-Natriuretic Peptide 4728 H, Total Protein 6.5, Albumin 2.7 L 02/11/20 13:50: PT 59.5 H, INR (Anticoag Therapy) 6.46 H* 02/12/20 07:49: WBC 11.8 H, RBC 3.31 L, Hgb 10.2 L, Hct 31.7 L, MCV 95.8, MCH 30.8, MCHC 32.2, RDW 17.8 H, Plt Count 395, MPV 11.8 H, Immature Gran % (Auto) 0.60 H, Immature Gran # (Auto) 0.07 H, Neutrophils % 55.7, Lymphocytes % 24.5, Monocytes % 12.2 H, Eosinophils % 6.0 H, Basophils % 1.0, Nucleated RBC % 0.1, Neutrophils # 6.6 H, Lymphocytes # 2.90, Monocytes # 1.5 H, Eosinophils # 0.7, Absolute Basophils 0.1 02/12/20 07:49: PT 65.7 H, INR (Anticoag Therapy) 7.16 H* 02/12/20 07:49: Sodium 142, Plasma Sodium 142, Potassium 3.6, Chloride 105, Carbon Dioxide 23.2 L, Anion Gap 17.4 H, BUN 96 H, Creatinine 3.63 H, Est GFR (Non-Af Amer) 18 L, BUN/Creatinine Ratio 26.4 H, Random Glucose 95, Calcium 8.3, Calcium Adj for Albumin 9.0, Total Bilirubin 0.6, AST 22, ALT 16 L, Alkaline Phosphatase 105, Total Protein 6.4, Albumin 2.7 L 02/13/20 10:28: WBC 12.6 H, RBC 3.20 L, Hgb 10.0 L, Hct 30.7 L, MCV 95.9, MCH 31.3 H, MCHC 32.6, RDW 17.8 H, Plt Count 394, MPV 11.4 H, Immature Gran % (Auto) 0.70 H, Immature Gran # (Auto) 0.09 H, Neutrophils % 64.4, Lymphocytes % 17.8 L, Monocytes % 11.2 H, Eosinophils % 5.0 H, Basophils % 0.9, Nucleated RBC % 0.1, Neutrophils # 8.1 H, Lymphocytes # 2.24, Monocytes # 1.4 H, Eosinophils # 0.6, Absolute Basophils 0.1 02/13/20 10:28: PT 42.8 H, INR (Anticoag Therapy) 4.58 H* 02/13/20 10:28: Sodium 140, Plasma Sodium 140, Potassium 3.7, Chloride 103, Carbon Dioxide 27.2, Anion Gap 13.5, BUN 98 H, Creatinine 3.65 H, Est GFR (Non- Af Amer) 17 L, BUN/Creatinine Ratio 26.8 H, Random Glucose 129 H D, Calcium 8.0, Calcium Adj for Albumin 8.8, Total Bilirubin 0.4, AST 21, ALT 17 L, Alkaline Phosphatase 116, Total Protein 6.2, Albumin 2.6 L 02/13/20 10:48: Ur Random Creatinine 80.0, U Random Total Protein 8.8 02/14/20 06:15: WBC 12.5 H, RBC 3.16 L, Hgb 9.8 L, Hct 30.3 L, MCV 95.9, MCH 31.0, MCHC 32.3, RDW 17.4 H, Plt Count 393, MPV 11.7 H, Neutrophils % (Manual) 58, Lymphocytes % (Manual) 26, Monocytes % (Manual) 12 H, Eosinophils % (Manual) 4 H, Neutrophils # (Manual) 7.3 H, Lymphocytes # (Manual) 3.3, Monocytes # (Manual) 1.5 H, Eosinophils # (Manual) 0.5, Nucleated RBCs 0.1, Platelet Estimate Normal, Anisocytosis 1+, Macrocytosis 1+, Target Cells 1+ 02/14/20 06:15: PT 37.0 H, INR (Anticoag Therapy) 3.94 H 02/14/20 06:15: Sodium 141, Plasma Sodium 141, Potassium 3.0 L, Chloride 104, Carbon Dioxide 26.6, Anion Gap 13.4, BUN 99 H, Creatinine 3.66 H, Est GFR (Non- Af Amer) 17 L, BUN/Creatinine Ratio 27.0 H, Random Glucose 93, Calcium 8.0, Calcium Adj for Albumin 8.8, Total Bilirubin 0.4, AST 22, ALT 17 L, Alkaline Phosphatase 120, Total Protein 5.9 L, Albumin 2.6 L 02/15/20 06:22: WBC 12.9 H, RBC 3.21 L, Hgb 9.7 L, Hct 30.1 L, MCV 93.8, MCH 30.2, MCHC 32.2, RDW 17.2 H, Plt Count 387, MPV 11.3, Immature Gran % (Auto) 0.40, Immature Gran # (Auto) 0.05 H, Neutrophils % 54.0, Neutrophils % (Manual) 61, Lymphocytes % 25.0, Lymphocytes % (Manual) 28, Monocytes % 13.8 H, Monocytes % (Manual) 7, Eosinophils % 6.1 H, Eosinophils % (Manual) 4 H, Basophils % 0.7, Nucleated RBC % 0.1, Neutrophils # 6.9 H, Neutrophils # (Manual) 7.9 H, Lymphocytes # 3.21, Lymphocytes # (Manual) 3.6 H, Monocytes # 1.8 H, Monocytes # (Manual) 0.9, Eosinophils # 0.8 H, Eosinophils # (Manual) 0.5, Absolute Basophils 0.1, Platelet Estimate Normal, RBC Morphology Normal 02/15/20 06:22: PT 29.3 H, INR (Anticoag Therapy) 3.09 H 02/15/20 06:22: Sodium 142, Plasma Sodium 142, Potassium 2.6 L, Chloride 103, Carbon Dioxide 28.9, Anion Gap 12.7, BUN 104 H, Creatinine 3.78 H, Est GFR (Non- Af Amer) 17 L, BUN/Creatinine Ratio 27.5 H, Random Glucose 95, Calcium 8.2, Calcium Adj for Albumin 9.0, Total Bilirubin 0.5, AST 22, ALT 17 L, Alkaline Phosphatase 102, Total Protein 5.9 L, Albumin 2.6 L 02/16/20 05:55: WBC 13.4 H, RBC 3.16 L, Hgb 9.8 L, Hct 29.7 L, MCV 94.0, MCH 31.0, MCHC 33.0, RDW 17.4 H, Plt Count 397, MPV 11.7 H, Neutrophils % (Manual) 56, Lymphocytes % (Manual) 31, Monocytes % (Manual) 8, Eosinophils % (Manual) 3, Neutrophils # (Manual) 7.5 H, Lymphocytes # (Manual) 4.2 H, Monocytes # (Manual) 1.1 H, Eosinophils # (Manual) 0.4, Atypic/Reactive Lymphs 2, Platelet Estimate Normal, Anisocytosis 2+, Target Cells 1+ 02/16/20 05:55: PT 24.8 H, INR (Anticoag Therapy) 2.60 H 02/16/20 05:55: Sodium 141, Plasma Sodium 141, Potassium 2.7 L, Chloride 103, Carbon Dioxide 29.2, Anion Gap 11.5, BUN 106 H, Creatinine 3.80 H, Est GFR (Non- Af Amer) 17 L, BUN/Creatinine Ratio 27.9 H, Random Glucose 102, Calcium 7.9, Calcium Adj for Albumin 8.8, Total Bilirubin 0.4, AST 23, ALT 17 L, Alkaline Phosphatase 123, Total Protein 5.8 L, Albumin 2.5 L 02/17/20 07:31: PT 26.0 H, INR (Anticoag Therapy) 2.73 H 02/17/20 07:31: WBC 13.4 H, RBC 3.33 L, Hgb 10.2 L, Hct 31.8 L, MCV 95.5, MCH 30.6, MCHC 32.1, RDW 17.4 H, Plt Count 400, MPV 12.1 H, Neutrophils % (Manual) 51, Lymphocytes % (Manual) 29, Monocytes % (Manual) 13 H, Eosinophils % (Manual) 7 H, Neutrophils # (Manual) 6.8 H, Lymphocytes # (Manual) 3.9 H, Monocytes # (Manual) 1.7 H, Eosinophils # (Manual) 0.9 H, Platelet Estimate Normal, RBC Morphology Normal, Anisocytosis 1+ 02/17/20 07:31: Sodium 143 H, Plasma Sodium 143 H, Potassium 3.6 D, Chloride 103, Carbon Dioxide 28.5, Anion Gap 15.1 H, BUN 112 H, Creatinine 3.98 H, Est GFR (Non-Af Amer) 16 L, BUN/Creatinine Ratio 28.1 H, Random Glucose 94, Calcium 8.5, Calcium Adj for Albumin 9.1, Total Bilirubin 0.5, AST 26, ALT 20, Alkaline Phosphatase 117, Total Protein 5.7 L, Albumin 2.8 L 02/18/20 06:10: WBC 13.6 H, RBC 3.25 L, Hgb 9.7 L, Hct 30.4 L, MCV 93.5, MCH 29.8, MCHC 31.9 L, RDW 17.3 H, Plt Count 381, MPV 11.1, Neutrophils % (Manual) 52, Lymphocytes % (Manual) 31, Monocytes % (Manual) 10 H, Eosinophils % (Manual) 7 H, Neutrophils # (Manual) 7.1 H, Lymphocytes # (Manual) 4.2 H, Monocytes # (Manual) 1.4 H, Eosinophils # (Manual) 1.0 H, Platelet Estimate Normal, Anisoc ytosis 1+ 02/18/20 06:10: PT 23.5 H, INR (Anticoag Therapy) 2.46 H 02/18/20 06:10: Sodium 143 H, Plasma Sodium 143 H, Potassium 3.1 L, Chloride 103, Carbon Dioxide 29.4, Anion Gap 13.7, BUN 114 H, Creatinine 3.85 H, Est GFR (Non-Af Amer) 16 L, BUN/Creatinine Ratio 29.6 H, Random Glucose 103, Calcium 8.5, Calcium Adj for Albumin 9.4, Total Bilirubin 0.4, AST 23, ALT 19, Alkaline Phosphatase 107, Total Protein 5.8 L, Albumin 2.5 L 02/18/20 11:47: Sodium 143 H, Plasma Sodium 143 H, Potassium 2.9 L, Chloride 102, Carbon Dioxide 29.9, Anion Gap 14.0 H, BUN 116 H, Creatinine 3.78 H, Est GFR (Non-Af Amer) 17 L, BUN/Creatinine Ratio 30.7 H, Random Glucose 120 H, Uric Acid 8.3 H, Calcium 7.8 L, Calcium Adj for Albumin 8.5, Total Bilirubin 0.4, AST 25, ALT 19, Alkaline Phosphatase 112, Total Protein 6.2, Albumin 2.7 L 02/19/20 06:00: WBC 8.7 D, RBC 3.22 L, Hgb 9.9 L, Hct 30.2 L, MCV 93.8, MCH 30. 7, MCHC 32.8, RDW 17.1 H, Plt Count 385, MPV 10.9, Immature Gran % (Auto) 0.70 H, Immature Gran # (Auto) 0.06 H, Neutrophils % 84.9 H, Lymphocytes % 12.0 L, Monocytes % 2.2, Eosinophils % 0.0, Basophils % 0.2, Nucleated RBC % 0.0, Neutrophils # 7.4 H, Lymphocytes # 1.04 L, Monocytes # 0.2, Eosinophils # 0.0, Absolute Basophils 0.0 02/19/20 06:10: PT 24.5 H, INR (Anticoag Therapy) 2.57 H 02/19/20 06:10: Sodium 139, Plasma Sodium 140, Potassium 3.1 L, Chloride 99, Carbon Dioxide 31.5, Anion Gap 11.6, BUN 114 H, Creatinine 3.78 H, Est GFR (Non- Af Amer) 17 L, BUN/Creatinine Ratio 30.2 H, Random Glucose 145 H, Calcium 8.2, Calcium Adj for Albumin 9.1, Total Bilirubin 0.4, AST 24, ALT 19, Alkaline Phosphatase 117, Total Protein 6.1 L, Albumin 2.5 L 02/20/20 08:40: WBC 14.0 H D, RBC 3.25 L, Hgb 10.0 L, Hct 30.3 L, MCV 93.2, MCH 30.8, MCHC 33.0, RDW 17.0 H, Plt Count 391, MPV 11.4 H, Immature Gran % (Auto) 0.90 H, Immature Gran # (Auto) 0.12 H, Neutrophils % 79.9 H, Lymphocytes % 10.1 L, Monocytes % 9.0, Eosinophils % 0.0, Basophils % 0.1, Nucleated RBC % 0.1, Neutrophils # 11.2 H, Lymphocytes # 1.41 L, Monocytes # 1.3 H, Eosinophils # 0.0, Absolute Basophils 0.0 02/20/20 08:40: PT 29.6 H, INR (Anticoag Therapy) 3.12 H 02/20/20 08:40: Sodium 140, Plasma Sodium 141, Potassium 3.2 L, Chloride 98, Carbon Dioxide 30.9, Anion Gap 14.3 H, BUN 115 H, Creatinine 3.66 H, Est GFR (Non-Af Amer) 17 L, BUN/Creatinine Ratio 31.4 H, Random Glucose 183 H, Calcium 8.6, Calcium Adj for Albumin 9.2, Total Bilirubin 0.4, AST 23, ALT 22, Alkaline Phosphatase 129, Total Protein 6.6, Albumin 2.9 L Discharge Location: [facility] Disposition: SNF Condition: Stable Level of Care: SNF Discharge Activity: Activity as tolerated Discharge Diet: Low salt Fpc Therapy: Physical Therapy, Occupation Therapy Referrals: John Dutton DO [Primary Care Provider] - One Week (1 week telemedicine visit) Problem Oriented Discharge Instructions to Patient/Family: Peripheral Edema, Chronic Kidney Disease, Adult, [id number] Additional Patient Instructions (free text): [facility] SNF- resume previous orders. He may have oxygen as needed at 2lpm if oxygen drops below 90% at rest, during activity, or at night. Weight him daily. He needs to limit his salt intake to prevent fluid retention. Prescriptions (Any new or edited meds): Bumetanide 4 mg PO 0730,1200,1700 #180 tab Transmission Status: Pending to [facility] Potassium Chloride [K-Dur] 40 meq PO TID #180 tab Transmission Status: Pending to [facility] Zinc Oxide 1 appl TOPICAL PRN PRN #1 tube PRN Reason: Skin Irritation Transmission Status: Pending to [facility] Allopurinol [Zyloprim] 200 mg PO 1500 #60 tab Transmission Status: Pending to [facility] Complete Home Medications List: Complete Home Medication List: Carvedilol [Coreg] 25 mg PO BID 06/12/13 Arformoterol Tartrate [Brovana] 15 mcg IH BID 11/21/13 Budesonide [Pulmicort] 0.5 mg IH BID 02/04/14 Nitroglycerin 0.4 mg SL [id number] PRN 02/09/14 Levalbuterol Tartrate [Xopenex Hfa] 2 puff IH Q6H PRN 07/22/14 Albuterol Sulfate 2.5 mg IH 1400 09/23/14 Atorvastatin Calcium [Lipitor] 40 mg PO HS 09/23/14 Fluorometholone [FML Ophthalmic Suspension] 1 drp LEFTEYE DAILY 09/23/14 Acetaminophen 1,000 mg PO Q6H PRN 04/03/18 amiodarone 200 mg tablet 200 mg PO DAILY 36 Days #36 tab 10/31/18 prednisolone acetate 1 % eye drops,suspension 1 drp RIGHTEYE DAILY 04/06/19 warfarin 2.5 mg tablet 2.5 mg PO DAILY tab 04/06/19 revefenacin 175 mcg/3 mL solution for nebulization 1 puff IH DAILY #90 ml 07/06/19 fexofenadine 180 mg tablet 180 mg PO HS 10/26/19 bupropion HCl 150 mg 24 hr tablet, extended release 150 mg PO DAILY #90 tab 12/11/19 Tamsulosin HCl [Flomax] 0.4 mg PO DAILY@1900 cap.sr.24h 12/17/19 levothyroxine 50 mcg capsule 50 mcg PO DAILY #90 cap 12/26/19 Fluticasone Propionate [Flonase] 1 spray NS BID PRN 01/22/20 Allopurinol [Zyloprim] 200 mg PO 1500 #60 tab 02/20/20 Bumetanide 4 mg PO 0730,1200,1700 #180 tab 02/20/20 Potassium Chloride [K-Dur] 40 meq PO TID #180 tab 02/20/20 Zinc Oxide 1 appl TOPICAL PRN PRN #1 tube 02/20/20 Amb Orders for Discharge: Comprehensive Metabolic Panel Time Frame: 02/22/20, Facility: [facility], Location: Laboratory Prothrombin Time Time Frame: 02/22/20, Facility: [facility], Location: Laboratory Forms: Patient Portal Registration
[2020-02-20 13:33] VITALS: BP 136/61
== END 2020-02-20 14:10 | DRG 292 ==
LOC: MS 12:43 → ER 12:43 → MS 15:20
PROVIDERS: ADMIT Family Medicine; ATTEND Family Medicine
DX: E03.9 Hypothyroidism, unspecified; J44.9 Chronic obstructive pulmonary disease, unspecified; I50.33 Acute on chronic diastolic (congestive) heart failure; R60.1 Generalized edema; E87.6 Hypokalemia; N04.9 Nephrotic syndrome with unspecified morphologic changes; N17.9 Acute kidney failure, unspecified; Z87.891 Personal history of nicotine dependence; Z79.01 Long term (current) use of anticoagulants; Z95.2 Presence of prosthetic heart valve; N18.4 Chronic kidney disease, stage 4 (severe); M10.372 Gout due to renal impairment, left ankle and foot
CPT/HCPCS: 36415; 71010; 71045; 73610; 76700; 80053; 81001; 82570; 83519; 83880; 84155; 84156; 84550; 85007; 85025; 85610; 87081; 94640; 94660; 94664; 96374; 96375; 96376; 97110; 97116; 97161; 99284; G0378